=== PATIENT | female | born 1960 | race Caucasian/White ===

== ENCOUNTER → 2019-11-30 08:49 | Outpatient (BNVA) | payer MEDICARE, MEDICAID, SELFPAY | PROVIDERS: Family Provider Nurse Practitioner Family; Visit Provider Social Worker | DX: F33.2 Major depressive disorder, recurrent severe without psychotic features (principal); F41.1 Generalized anxiety disorder; F43.12 Post-traumatic stress disorder, chronic | CPT/HCPCS: 90834 ==

== ENCOUNTER → 2019-12-16 08:19 | Outpatient (BNVA) | payer MEDICARE, MEDICAID, SELFPAY | PROVIDERS: Family Provider Nurse Practitioner Family; Visit Provider Social Worker | DX: F33.2 Major depressive disorder, recurrent severe without psychotic features (principal); F41.1 Generalized anxiety disorder; F43.12 Post-traumatic stress disorder, chronic | CPT/HCPCS: 90834 ==

== ENCOUNTER → 2020-01-20 08:03 | Outpatient (BNVA) | payer MEDICARE, MEDICAID, SELFPAY | PROVIDERS: Family Provider Nurse Practitioner Family; Visit Provider Social Worker | DX: F33.3 Major depressive disorder, recurrent, severe with psychotic symptoms (principal); F41.1 Generalized anxiety disorder; F43.12 Post-traumatic stress disorder, chronic | CPT/HCPCS: 90832 ==

== ENCOUNTER 2020-09-05 09:47 | Outpatient (CLI) | payer MEDICARE, MEDICAID, SELFPAY ==
--- NOTE | 2020-09-05 09:54 | MM_ITS ---
WS: [id number] BILATERAL DIGITAL SCREENING MAMMOGRAM WITH CAD CLINICAL INFORMATION: SCREENING HISTORY: Screening mammogram. No current complaints. COMPARISON: TECHNIQUE: Bilateral CC and MLO views. FINDINGS: Fatty-replaced breasts bilaterally. 8 mm nodular density upper outer right breast best seen on the ML O view may represent an intramammary lymph node but is new from previous. RECOMMEND FURTHER EVALUATION WITH RIGHT BREAST SPOT COMPRESSION VIEWS AND ULTRASOUND. Left breast is unchanged and unremarkable. \IMPRESSION: MM/[place] [id number] BI-RADS: 0-Incomplete: Need additional imaging evaluation FOLLOW UP: Need Additional Imaging
== END 2020-09-05 09:48 | disposition home or self-care (01) ==
LOC: RADSHAW 09:51
PROVIDERS: Family Provider Nurse Practitioner Family; PCP Nurse Practitioner Family; Visit Provider Nurse Practitioner Family
DX: Z12.31 Encounter for screening mammogram for malignant neoplasm of breast (principal)
CPT/HCPCS: 77067

== ENCOUNTER → 2020-09-06 14:39 | Outpatient (BNVA) | payer MEDICARE, MEDICAID, SELFPAY | PROVIDERS: Family Provider Nurse Practitioner Family; PCP Nurse Practitioner Family; Visit Provider Internal Medicine | DX: Z79.01 Long term (current) use of anticoagulants (principal); Z95.2 Presence of prosthetic heart valve | CPT/HCPCS: 85610 ==

== ENCOUNTER 2020-09-18 09:29 | Outpatient (CLI) | payer MEDICARE, MEDICAID, SELFPAY ==
--- NOTE | 2020-09-18 09:34 | US_ITS ---
WS: [id number] RIGHT DIGITAL MAMMOGRAPHY WITH CAD CLINICAL INFORMATION: ABNORMALITY OF RT BREAST ON SCREENING MAMMOGRAM COMPARISON: September 05, 2020 TECHNIQUE: 5 views of the right breast were obtained. FINDINGS: Scattered fibroglandular densities of the right breast. Stable 8 mm nodular density upper outer right breast. Ultrasound is pending. ULTRASOUND BREAST RIGHT TECHNIQUE: Ultrasound right breast focused area of concern. CLINICAL INFORMATION: ABNORMALITY OF RT BREAST ON SCREENING MAMMOGRAM COMPARISON: None. FINDINGS: Ultrasound right breast 10:00 position. There is a shallow hypoechoic well-circumscribed solid nodule measuring 7.0 x 5.0 x 6.5 mm. This is indeterminate and could be further evaluated ultrasound guided biopsy. US/US breast RT complete [id number] IMPRESSION: BI-RADS: 4-Suspicious Finding-Biopsy Should Be Considered FOLLOW UP: US Guided Biopsy Recommended
== END 2020-09-18 09:30 | disposition home or self-care (01) ==
LOC: RADSHAW 09:31
PROVIDERS: PCP Nurse Practitioner Family; Visit Provider Nurse Practitioner Family
DX: R92.8 Other abnormal and inconclusive findings on diagnostic imaging of breast (principal); N63.11 Unspecified lump in the right breast, upper outer quadrant
CPT/HCPCS: 76641; 77065

== ENCOUNTER 2020-10-30 12:00 | Outpatient (CLI) | payer MEDICARE, MEDICAID, SELFPAY ==
--- NOTE | 2020-10-30 12:09 | US_ITS ---
WS: [id number] ULTRASOUND BREAST RIGHT TECHNIQUE: Ultrasound right breast focused area of concern. CLINICAL INFORMATION: BREAST NODULE RIGHT COMPARISON: September 18, 2020 FINDINGS: Ultrasound right breast 9:00 position 7 cm from the nipple. Previously described superficial lesion a t the 9:00 position is no longer visualized today. Biopsy was not performed. Recommend 6 month follow -up ultrasound. US/US breast RT limited* [id number] IMPRESSION: Previously described lesion in the 9:00 position is no longer visualized today and may have resolved. Recommend 6 month follow-up right breast ultrasound.
== END 2020-10-30 12:01 | disposition home or self-care (01) ==
LOC: RAD 12:05
PROVIDERS: PCP Nurse Practitioner Family; Visit Provider Nurse Practitioner Family
DX: N63.15 Unspecified lump in the right breast, overlapping quadrants (principal)
CPT/HCPCS: 19083; 76642

== ENCOUNTER 2020-11-27 06:00 | Outpatient (RCR) | payer MEDICARE, MEDICAID, SELFPAY | END 2020-12-15 23:59 | disposition home or self-care (01) | LOC: MPT 06:00 | PROVIDERS: PCP Nurse Practitioner Family; Referring Provider Nurse Practitioner Family; Visit Provider Nurse Practitioner Family | DX: M51.36 Other intervertebral disc degeneration, lumbar region (principal); M54.31 Sciatica, right side; M54.32 Sciatica, left side | CPT/HCPCS: 97110; 97140; 97162; G0283 ==

== ENCOUNTER 2020-12-16 06:00 | Outpatient (RCR) | payer MEDICARE, MEDICAID, SELFPAY | END 2021-01-15 23:59 | disposition home or self-care (01) | LOC: MPT 06:00 | PROVIDERS: PCP Nurse Practitioner Family; Referring Provider Nurse Practitioner Family; Visit Provider Nurse Practitioner Family | DX: M51.36 Other intervertebral disc degeneration, lumbar region (principal); M54.31 Sciatica, right side; M54.32 Sciatica, left side | CPT/HCPCS: 97110; 97140; G0283 ==

== ENCOUNTER → 2021-02-21 09:53 | Outpatient (BNVA) | payer MEDICARE, MEDICAID, SELFPAY | PROVIDERS: PCP Nurse Practitioner Family; Visit Provider Registered Nurse | DX: Z79.899 Other long term (current) drug therapy (principal); I10 Essential (primary) hypertension; E78.5 Hyperlipidemia, unspecified; Z79.01 Long term (current) use of anticoagulants | CPT/HCPCS: 36415; 80061; 83036 ==

== ENCOUNTER → 2021-09-05 09:04 | Outpatient (BNVA) | payer MEDICARE, MEDICAID, SELFPAY | PROVIDERS: PCP Nurse Practitioner Family; Visit Provider Social Worker Clinical | DX: F33.3 Major depressive disorder, recurrent, severe with psychotic symptoms (principal); F43.10 Post-traumatic stress disorder, unspecified; F41.1 Generalized anxiety disorder | CPT/HCPCS: 90832 ==

== ENCOUNTER → 2021-09-12 17:15 | Outpatient (BNVA) | payer MEDICARE, MEDICAID, SELFPAY | PROVIDERS: PCP Nurse Practitioner Family; Visit Provider Internal Medicine | DX: Z95.2 Presence of prosthetic heart valve (principal) | CPT/HCPCS: 85610 ==

== ENCOUNTER → 2021-10-17 10:32 | Outpatient (BNVA) | payer MEDICARE, MEDICAID, SELFPAY | PROVIDERS: PCP Nurse Practitioner Family; Visit Provider Internal Medicine | DX: Z79.01 Long term (current) use of anticoagulants (principal) ==

== ENCOUNTER → 2021-10-26 08:47 | Outpatient (BNVA) | payer MEDICARE, MEDICAID, SELFPAY | PROVIDERS: PCP Nurse Practitioner Family; Visit Provider Internal Medicine | DX: Z79.01 Long term (current) use of anticoagulants (principal) ==

== ENCOUNTER → 2021-11-09 08:13 | Outpatient (BNVA) | payer MEDICARE, MEDICAID, SELFPAY | PROVIDERS: PCP Nurse Practitioner Family; Visit Provider Internal Medicine | DX: Z79.01 Long term (current) use of anticoagulants (principal) ==

== ENCOUNTER → 2021-11-13 08:50 | Outpatient (BNVA) | payer MEDICARE, MEDICAID, SELFPAY | PROVIDERS: PCP Nurse Practitioner Family; Visit Provider Internal Medicine | DX: I34.8 Other nonrheumatic mitral valve disorders (principal); Z79.01 Long term (current) use of anticoagulants ==

== ENCOUNTER → 2021-11-23 08:27 | Outpatient (BNVA) | payer MEDICARE, MEDICAID, SELFPAY | PROVIDERS: PCP Nurse Practitioner Family; Visit Provider Internal Medicine | DX: Z79.01 Long term (current) use of anticoagulants (principal) ==

== ENCOUNTER → 2021-11-30 10:44 | Outpatient (BNVA) | payer MEDICARE, MEDICAID, SELFPAY | PROVIDERS: PCP Nurse Practitioner Family; Visit Provider Internal Medicine | DX: Z79.01 Long term (current) use of anticoagulants (principal) ==

== ENCOUNTER → 2021-12-03 16:02 | Outpatient (BNVA) | payer MEDICARE, MEDICAID, SELFPAY | PROVIDERS: PCP Nurse Practitioner Family; Visit Provider Internal Medicine | DX: Z79.01 Long term (current) use of anticoagulants (principal) ==

== ENCOUNTER → 2021-12-05 13:08 | Outpatient (BNVA) | payer MEDICARE, MEDICAID, SELFPAY | PROVIDERS: PCP Nurse Practitioner Family; Visit Provider Internal Medicine | DX: Z79.01 Long term (current) use of anticoagulants (principal) ==

== ENCOUNTER → 2021-12-11 12:32 | Outpatient (BNVA) | payer MEDICARE, MEDICAID, SELFPAY | PROVIDERS: PCP Nurse Practitioner Family; Visit Provider Internal Medicine | DX: Z79.01 Long term (current) use of anticoagulants (principal) ==

== ENCOUNTER → 2021-12-19 10:06 | Outpatient (BNVA) | payer MEDICARE, MEDICAID, SELFPAY | PROVIDERS: PCP Nurse Practitioner Family; Visit Provider Internal Medicine | DX: Z79.01 Long term (current) use of anticoagulants (principal) ==

== ENCOUNTER → 2021-12-28 12:55 | Outpatient (BNVA) | payer MEDICARE, MEDICAID, SELFPAY | PROVIDERS: PCP Nurse Practitioner Family; Visit Provider Internal Medicine | DX: Z79.01 Long term (current) use of anticoagulants (principal) ==

== ENCOUNTER → 2022-01-01 12:45 | Outpatient (BNVA) | payer MEDICARE, MEDICAID, SELFPAY | PROVIDERS: PCP Nurse Practitioner Family; Visit Provider Internal Medicine | DX: Z79.01 Long term (current) use of anticoagulants (principal) ==

== ENCOUNTER 2022-01-09 20:00 | Outpatient (CLI) | payer MEDICARE, MEDICAID, SELFPAY | END 2022-01-09 20:01 | disposition home or self-care (01) | LOC: SLEEP 01-10 05:30 | PROVIDERS: PCP Nurse Practitioner Family; Visit Provider Registered Nurse | DX: G47.33 Obstructive sleep apnea (adult) (pediatric) (principal) | CPT/HCPCS: 95810 ==

== ENCOUNTER → 2022-01-10 09:44 | Outpatient (BNVA) | payer MEDICARE, MEDICAID, SELFPAY | PROVIDERS: PCP Nurse Practitioner Family; Visit Provider Internal Medicine | DX: Z79.01 Long term (current) use of anticoagulants (principal) ==

== ENCOUNTER → 2022-01-18 10:17 | Outpatient (BNVA) | payer MEDICARE, MEDICAID, SELFPAY | PROVIDERS: PCP Nurse Practitioner Family; Visit Provider Internal Medicine | DX: Z79.01 Long term (current) use of anticoagulants (principal) ==

== ENCOUNTER → 2022-01-23 08:01 | Outpatient (BNVA) | payer MEDICARE, MEDICAID, SELFPAY | PROVIDERS: PCP Nurse Practitioner Family; Visit Provider Internal Medicine | DX: Z79.01 Long term (current) use of anticoagulants (principal) ==

== ENCOUNTER → 2022-01-30 09:39 | Outpatient (BNVA) | payer MEDICARE, MEDICAID, SELFPAY | PROVIDERS: PCP Nurse Practitioner Family; Visit Provider Internal Medicine | DX: Z79.01 Long term (current) use of anticoagulants (principal) ==

== ENCOUNTER → 2022-02-04 11:19 | Outpatient (BNVA) | payer MEDICARE, MEDICAID, SELFPAY | PROVIDERS: PCP Nurse Practitioner Family; Visit Provider Nurse Practitioner Family | DX: Z53.9 Procedure and treatment not carried out, unspecified reason (principal) | CPT/HCPCS: 99999 ==

== ENCOUNTER → 2022-02-06 11:11 | Outpatient (BNVA) | payer MEDICARE, MEDICAID, SELFPAY | PROVIDERS: PCP Nurse Practitioner Family; Visit Provider Internal Medicine | DX: Z79.01 Long term (current) use of anticoagulants (principal) ==

== ENCOUNTER → 2022-02-14 09:35 | Outpatient (BNVA) | payer MEDICARE, MEDICAID, SELFPAY | PROVIDERS: PCP Nurse Practitioner Family; Visit Provider Internal Medicine | DX: Z79.01 Long term (current) use of anticoagulants (principal) ==

== ENCOUNTER → 2022-02-22 10:37 | Outpatient (BNVA) | payer MEDICARE, MEDICAID, SELFPAY | PROVIDERS: PCP Nurse Practitioner Family; Visit Provider Internal Medicine | DX: Z79.01 Long term (current) use of anticoagulants (principal) ==

== ENCOUNTER → 2022-03-01 09:17 | Outpatient (BNVA) | payer MEDICARE, MEDICAID, OTHER, SELFPAY | PROVIDERS: PCP Nurse Practitioner Family; Visit Provider Internal Medicine | DX: Z79.01 Long term (current) use of anticoagulants (principal) ==

== ENCOUNTER → 2022-03-06 09:49 | Outpatient (BNVA) | payer MEDICARE, MEDICAID, OTHER, SELFPAY | PROVIDERS: PCP Nurse Practitioner Family; Visit Provider Internal Medicine | DX: Z79.01 Long term (current) use of anticoagulants (principal) ==

== ENCOUNTER → 2022-03-11 09:48 | Outpatient (BNVA) | payer MEDICARE, MEDICAID, SELFPAY | PROVIDERS: PCP Nurse Practitioner Family; Visit Provider Internal Medicine | DX: Z79.01 Long term (current) use of anticoagulants (principal) ==

== ENCOUNTER → 2022-03-22 10:56 | Outpatient (BNVA) | payer MEDICARE, MEDICAID, SELFPAY | PROVIDERS: PCP Nurse Practitioner Family; Visit Provider Internal Medicine | DX: I10 Essential (primary) hypertension (principal); Z95.2 Presence of prosthetic heart valve; E78.5 Hyperlipidemia, unspecified; Z87.891 Personal history of nicotine dependence; J44.9 Chronic obstructive pulmonary disease, unspecified; E66.01 Morbid (severe) obesity due to excess calories; Z68.42 Body mass index [BMI] 45.0-49.9, adult; Z79.01 Long term (current) use of anticoagulants | CPT/HCPCS: 99213; 99214 ==

== ENCOUNTER 2022-04-23 07:57 | Outpatient (CLI) | payer MEDICARE, MEDICAID, SELFPAY ==
--- NOTE | 2022-04-23 08:30 | USCV_ITS ---
Daisy Corey Age: 61 Gender: F : 1960 Exam Date: 04/23/2022 08:27 Ordering Phys: Jhonatan Cabral M.D ([email or web address]) Technologist: Exam Location: [facility] [place]: chest pain BP: 135 / 82 HR: 83 Rhythm: Sinus Technical Quality: Adequate MEASUREMENTS (Male / Female) Normal Values 2D ECHO LV Diastolic Diameter PLAX 4.5 cm 4.2 - 5.9 / 3.9 - 5.3 cm LV Systolic Diameter PLAX 3.3 cm IVS Diastolic Thickness 1.2 cm 0.6 - 1.0 / 0.6 - 0.9 cm IVS Systolic Thickness 1.6 cm LVPW Diastolic Thickness 1.4 cm 0.6 - 1.0 / 0.6 - 0.9 cm LVPW Systolic Thickness 1.8 cm LVOT Diameter 2.0 cm LV Ejection Fraction 2D Teich 51.5 % LA Diameter 4.7 cm IVC Diameter 2.3 cm M-MODE Aortic Annulus Diameter 3.0 cm LA Ao Ratio MM 1.8 MV E Point Septal Separation 1.4 cm DOPPLER AV Peak Velocity 277.3 cm/s LVOT Peak Velocity 86.0 cm/s AV Area Cont Eq vti 1.2 cm squared AV Area Cont Eq pk 1.0 cm squared MV Area PHT 5.1 cm squared Mitral E to A Ratio 1.4 MV E' Velocity 80.0 cm/s Mitral E to MV E' Ratio 18.0 Mitral E to LV E' Lateral Ratio 16.8 Mitral E to LV E' Septal Ratio 19.4 TR Peak Velocity 209.7 cm/s TR Peak Gradient 17.6 mmHg TV Peak E Velocity 82.0 cm/s Right Atrial Pressure 3.0 mmHg Pulmonary Artery Systolic Pressu 20.6 mmHg PV Peak Velocity 129.0 cm/s RV Acceleration Time 0.2 s FINDINGS Left Ventricle Technically limited quality echocardiogram because of poor ultrasonic windows. Grossly LV systolic function is normal. Regional wall motion abnormalities cannot be assessed because of poor ultrasonic windows. Right Ventricle The right ventricle is normal in size and function. Right Atrium Not well-visualized Left Atrium The left atrium is normal in size. Mitral Valve Moderate mitral annular calcification is seen. No significant stenosis or regurgitation. Aortic Valve Not well-visualized. Mild aortic stenosis with aortic valve area of 1.2 cm2. Mean gradient across aortic valve of 13.6 mmHg. No significant regurgitation seen. Tricuspid Valve Trace tricuspid regurgitation. Insufficient TR jet to calculate RVSP. Pulmonic Valve Not well-visualized Pericardium Normal pericardium without effusion. Aorta Normal ascending aorta dimension. IVC CONCLUSIONS Technically very limited quality echocardiogram because of poor ultrasonic windows. Grossly LV systolic function is normal. Regional wall motion abnormalities cannot be assessed because of poor ultrasonic windows. Moderate mitral annular calcification seen. Aortic valve is not well visualized. Mild aortic stenosis with aortic valve area of 1.2 cm squared and mean gradient across aortic valve of 13.6 mmHg. Trace tricuspid regurgitation. Echogenic assessment with prior echocardiogram from 2012 not possible because of poor ultrasonic windows. Jhonatan Cabral MD (Electronically Signed) Final Date: 27 April 2022 15:43 S
== END 2022-04-23 07:58 | disposition home or self-care (01) ==
PROVIDERS: PCP Nurse Practitioner Family; Visit Provider Internal Medicine
DX: R07.9 Chest pain, unspecified (principal); I08.3 Combined rheumatic disorders of mitral, aortic and tricuspid valves
CPT/HCPCS: 93306

== ENCOUNTER 2022-08-23 20:11 | Emergency (ER) | payer MEDICARE, MEDICAID, SELFPAY ==
[2022-08-23 20:38] VITALS: BP 132/52; PULSE 89; RESP 20; TEMP 36.6; O2SAT 90; BMI 49.6
--- NOTE | 2022-08-23 20:46 | ECG_ITS ---
[facility] Test Date: 2022-08-23 Pat Name: Daisy Corey Department: Room: Gender: Female [employer]: : 1960 Requested By: Lio Calhoun Order Number: [id number] Stephen MD: Amina Santana M.D. Measurements Intervals [place] Rate: 89 P: 150 AL: 146 QRS: -22 QRSD: 122 T: 151 QT: 351 QTc: 428 Interpretive Statements SINUS RHYTHM POSSIBLE LEFT ATRIAL ENLARGEMENT [-0.1mV P-WAVE IN V1/V2] POSSIBLE RIGHT VENTRICULAR CONDUCTION DELAY [RSR (QR) IN V1/V2] LATERAL MYOCARDIAL INFARCTION , OF INDETERMINATE AGE [40+ ms Q WAVE AND/OR ST/T ABNORMALITY IN I/aVL/V5/V6] No previous ECG available for comparison Electronically Signed On 08-24-2022 7:09:34 CE[employer]OWER [employer]IM[employer] by Amina Santana M.D. [email or web address]
--- NOTE | 2022-08-23 21:12 | W.ED.CHESTPA ---
Documented by User: Lio Banuelos MD 08/23/22 23:13 HPI - Chest Pain General: Chief Complaint: Chest Pain Stated Complaint: CHEST PAIN Time Seen by Provider: 08/23/22 20:45 Source: patient Mode of arrival: EMS History of Present Illness: This 62-year-old female with a history of hypertension, dyslipidemia, morbid obesity and obstructive sleep apnea, presents to the ER with chest pain that started somewhere around 10 AM this morning. She describes the chest pain as aching in nature, constant with periods of acute exacerbation. She has a past history of valve replacement over 10 years ago and has not had a stress test or cardiac catheterization in a while. She did 1 dose of nitroglycerin prior to arrival. Currently, chest pain has eased up but has not completely resolved. Review of Systems Const: Denies: chills, body aches or change in appetite Eyes: Denies: change in vision or eye discharge ENMT: Denies: throat pain, dental pain or nasal discharge Card: Reports: chest pain; Denies: lightheadedness : Denies: dysuria Musc: Denies: neck pain or back pain Neuro: Denies: headache(s) or weakness in extremities Psych: Denies: depression Jorge/Lymph: Denies: easy bruising All/Imm: Denies: urticaria, tongue swelling or facial swelling PFSH ED PFSH: Medical History Anticoagulant long-term use COPD (chronic obstructive pulmonary disease) Dyslipidemia HTN (hypertension) Major depressive disorder, recurrent, severe with psychotic symptoms Morbid obesity GUS (obstructive sleep apnea) Oxygen dependent Psychiatric care Tobacco abuse, in remission Venous stasis Surgical History H/O mechanical aortic valve replacement Family History Other CAD (coronary artery disease) Dementia Diabetes Hypertension Social History Smoking and tobacco status: former smoker Second hand smoke exposure: No Alcohol intake: never Adopted: No Caregiver/support person: No Lives independently: Yes Household members: spouse Housing: House Marital status: Marital status details: for 36 years Number of children: 2 Number of grandchildren: 0 Highest education level completed: 10th Grade Current occupational status: disabled Pets and animals: Yes Pets & animals: dog(s) History of recent travel: No Leisure activites: reading and other Leisure activities details: alona Sexually active: Yes Current gender identity: Female Abbi/Holiness: Druze Special abbi needs: No Agree to transfusion: Yes Financial difficulty paying for basics: Not Very Hard Female Reproductive History: Para: 2 Physical Exam Narrative: EXAM NARRATIVE: Morbid obesity. Const: COMMON NORMALS: no acute distress, patient oriented x3, no limitations and alert HENMT: COMMON NORMALS: normocephalic HEAD & SCALP: normocephalic Eye: COMMON NORMALS: EOMs intact bilaterally Neck/C-Spine: COMMON NORMALS: full ROM and supple Chest: OTHER: Healed mid sternotomy scar from valve replacement over 10 years ago. Resp: COMMON NORMALS: normal respiratory effort, No retractions, No use of accessory muscles and clear to auscultation bilaterally AUSCULTATION: clear to auscultation bilaterally Cardio: COMMON NORMALS: regular rate, regular rhythm and No murmurs present (Cardio) RATE: regular rate RHYTHM: regular rhythm GI: COMMON NORMALS: Normal to inspection, nondistended, normoactive bowel sounds present and non-tender : COMMON NORMALS: Yes no CVA tenderness BLADDER/KIDNEY EXAM: Yes no CVA tenderness Back/Pelvis: COMMON NORMALS: no CVA tenderness and no thoracic nor lumbar tenderness Extremity: GENERAL: Yes normal exam except as noted (Hyperpigmentation of both lower extremities due to venous stasis.) Neuro: COMMON NORMALS: patient oriented x3 and no focal motor deficits SENSORIUM/ORIENTATION: Yes alert Psych: COMMON NORMALS: mental status grossly normal and cooperative Course Vital Signs: Vital signs: Vital Signs Temperature 98 F 08/23/22 20:38 Pulse Rate 86 08/24/22 01:59 Respiratory Rate 20 H 08/24/22 01:59 Blood Pressure 146/97 08/24/22 01:59 Pulse Oximetry 92 08/24/22 01:59 Oxygen Delivery Me thod 08/24/22 01:19 Oxygen Flow Rate 2 08/24/22 01:19 MDM - Chest Pain Lab Data 08/23/22 21:13 08/23/22 21:13 Radiology Impressions Chest X-Ray 08/23/22 21:37 IMPRESSION: No acute findings. Laboratory Results WBC 12.2 10^3/uL (4.0-10.0) H 08/23/22 21:13 RBC 4.75 10^6/uL (4.1-5.3) 08/23/22 21:13 Hgb 13.1 g/dL (11.5-15.3) 08/23/22 21:13 Hct 40.8 % (37.0-47.0) 08/23/22 21:13 MCV 85.9 fl (81-99) 08/23/22 21:13 MCH 27.6 pg (28.0-34.0) L 08/23/22 21:13 MCHC 32.1 g/dL (30.0-36.0) 08/23/22 21:13 RDW 15.4 % (12.1-15.1) H 08/23/22 21:13 Plt Count 305 10^3/cmm (130-400) 08/23/22 21:13 MPV 9.2 fL (7.4-10.4) 08/23/22 21:13 Neut % (Auto) 72.4 % 08/23/22 21:13 Lymph % (Auto) 18.2 % 08/23/22 21:13 [place] % (Auto) 6.0 % 08/23/22 21:13 Eos % (Auto) 2.5 % 08/23/22 21:13 Baso % (Auto) 0.4 % 08/23/22 21:13 Neut # (Auto) 8.86 10^3/uL (1.8-7.7) H 08/23/22 21:13 Lymph # (Auto) 2.2 10^3/uL (0.8-4.8) 08/23/22 21:13 [place] # (Auto) 0.7 10^3/uL (0.2-0.9) 08/23/22 21:13 Eos # (Auto) 0.3 10^3/uL (0.0-0.8) 08/23/22 21:13 Baso # (Auto) 0.1 10^3/uL (0.0-0.1) 08/23/22 21:13 Nucleated RBC % (auto) 0 % 08/23/22 21:13 Nucleated RBCs # 0.0 /100WBC 08/23/22 21:13 Sodium 138 mmol/L (136-145) 08/23/22 21:13 Potassium 3.9 mmol/L (3.5-5.1) 08/23/22 21:13 Chloride 96 mmol/L (98-107) L 08/23/22 21:13 Carbon Dioxide 34 mmol/L (22-29) H 08/23/22 21:13 Anion Gap 11.9 (5-19) 08/23/22 21:13 BUN 13 mg/dL (8-23) 08/23/22 21:13 Creatinine 0.5 mg/dL (0.5-0.9) 08/23/22 21:13 GFR Calculation 125.4 mL/min (90-130) 08/23/22 21:13 Glucose 124 mg/dL (65-115) H 08/23/22 21:13 Calculated Osmolality 288 mOsm/kg (285-295) 08/23/22 21:13 Calcium 9.7 mg/dL (8.5-10.5) 08/23/22 21:13 Total Bilirubin 0.3 mg/dL (0.15-1.2) 08/23/22 21:13 AST 19 U/L (0-32) 08/23/22 21:13 ALT 14 U/L (0-33) 08/23/22 21:13 Alkaline Phosphatase 132 U/L (35-105) H 08/23/22 21:13 Troponin T Baseline 7 ng/L (0-10) 08/23/22 21:13 Troponin T 120 Minute 7.11 ng/L (0-10) 08/23/22 23:07 Delta Troponin T 0.11 ABS# (0-10) 08/23/22 23:07 Total Protein 7.8 g/dL (6.6-8.7) 08/23/22 21:13 Albumin 3.9 g/dL (3.5-5.2) 08/23/22 21:13 Globulin 3.9 g/dL (1.3-4.6) 08/23/22 21:13 Discharge Plan Discharge Patient Disposition: Home Clinical Impression: Chest pain Condition: Stable Prescriptions: No Action atorvastatin 20 mg tablet 20 mg PO DAILY magnesium oxide 400 mg magnesium tablet 400 mg PO BID aspirin [Adult Low Dose Aspirin] 81 mg tablet,delayed release (DR/EC) 81 mg PO DAILY gabapentin 300 mg capsule 300 mg PO TID theophylline 200 mg tablet 400 mg PO DAILY furosemide 40 mg tablet 40 mg PO DAILY levothyroxine 75 mcg capsule 75 mcg PO DAILY albuterol sulfate [ProAir HFA] 90 mcg/actuation HFA aerosol inhaler 2 puff INHALATION Q6H PRN (Reason: shortness of breath ) amlodipine 5 mg tablet 5 mg PO DAILY Qty: 90 3RF Daliresp 250 mcg tablet 250 mcg PO DAILY cyclobenzaprine 10 mg tablet 10 mg PO BID Trelegy Ellipta 100-62.5-25 mcg blister with device 1 inh inhalation DAILY Breztri Aerosphere 160-9-4.8 mcg/actuation HFA aerosol inhaler 2 inh inhalation BID ferrous sulfate [Tommy-Time] 325 mg (65 mg iron) tablet 325 mg PO DAILY hydroxyzine pamoate 25 mg capsule See Rx Instructions .ROUTE .COMPLEX Qty: 90 0RF Dose Instruction: TAKE 1 CAPSULE BY MOUTH THREE TIMES DAILY NEEDED FOR ANXIETY Rx Instructions: TAKE 1 CAPSULE BY MOUTH THREE TIMES DAILY NEEDED FOR ANXIETY (DME) oxygen-air delivery systems Device See Rx Instructions .Route Rx Instructions: As directed Rexulti 4 mg tablet See Rx Instructions .ROUTE .COMPLEX Qty: 30 2RF Dose Instruction: TAKE 1 TABLET BY MOUTH DAILY Rx Instructions: TAKE 1 TABLET BY MOUTH DAILY duloxetine [Cymbalta] 60 mg capsule,delayed release(DR/EC) 60 mg PO BID Qty: 60 2RF warfarin 2.5 mg tablet 2.5 mg PO DAILY Qty: 30 3RF Protocol: Dose Management Condition: Friday Dose/Route: 4 mg Instruction: 1 x 4 mg tablet Condition: Friday Dose/Route: 5 mg Instruction: 1 x 5 mg tablet Condition: Friday Dose/Route: 4 mg Instruction: 1 x 4 mg tablet Condition: Friday Dose/Route: 4 mg Instruction: 1 x 4 mg tablet Condition: Dose/Route: 4 mg Instruction: 1 x 4 mg tablet Condition: Friday Dose/Route: 4 mg Instruction: 1 x 4 mg tablet Condition: Friday Dose/Route: 4 mg Instruction: 1 x 4 mg tablet Protocol Text: Adjustment Start Date: Friday08/23/22 INR Value: 2.7 INR Date: 08/19/22 Recheck Date: 08/30/22 Rx Instructions: Take as directed, based on INR results warfarin 1 mg tablet 1 mg PO DAILY Qty: 90 3RF Protocol: Dose Management Condition: Friday Dose/Route: 4 mg Instruction: 1 x 4 mg tablet Condition: Friday Dose/Route: 5 mg Instruction: 1 x 5 mg tablet Condition: Friday Dose/Route: 4 mg Instruction: 1 x 4 mg tablet Condition: Friday Dose/Route: 4 mg Instruction: 1 x 4 mg tablet Condition: Dose/Route: 4 mg Instruction: 1 x 4 mg tablet Condition: Friday Dose/Route: 4 mg Instruction: 1 x 4 mg tablet Condition: Friday Dose/Route: 4 mg Instruction: 1 x 4 mg tablet Protocol Text: Adjustment Start Date: Friday08/23/22 INR Value: 2.7 INR Date: 08/19/22 Recheck Date: 08/30/22 Rx Instructions: Take as directed, based on INR results warfarin 3 mg tablet See Rx Instructions .ROUTE .COMPLEX Qty: 90 3RF Protocol: Dose Management Condition: Friday Dose/Route: 4 mg Instruction: 1 x 4 mg tablet Condition: Friday Dose/Route: 5 mg Instruction: 1 x 5 mg tablet Condition: Friday Dose/Route: 4 mg Instruction: 1 x 4 mg tablet Condition: Friday Dose/Route: 4 mg Instruction: 1 x 4 mg tablet Condition: Dose/Route: 4 mg Instruction: 1 x 4 mg tablet Condition: Friday Dose/Route: 4 mg Instruction: 1 x 4 mg tablet Condition: Friday Dose/Route: 4 mg Instruction: 1 x 4 mg tablet Protocol Text: Adjustment Start Date: Friday08/23/22 INR Value: 2.7 INR Date: 08/19/22 Recheck Date: 08/30/22 Dose Instruction: TAKE 1 TABLET BY MOUTH EVERY DAY Rx Instructions: TAKE 1 TABLET BY MOUTH EVERY DAY warfarin 5 mg tablet 5 mg PO DAILY Qty: 30 5RF Protocol: Dose Management Condition: Friday Dose/Route: 4 mg Instruction: 1 x 4 mg tablet Condition: Friday Dose/Route: 5 mg Instruction: 1 x 5 mg tablet Condition: Friday Dose/Route: 4 mg Instruction: 1 x 4 mg tablet Condition: Friday Dose/Route: 4 mg Instruction: 1 x 4 mg tablet Condition: Dose/Route: 4 mg Instruction: 1 x 4 mg tablet Condition: Friday Dose/Route: 4 mg Instruction: 1 x 4 mg tablet Condition: Friday Dose/Route: 4 mg Instruction: 1 x 4 mg tablet Protocol Text: Adjustment Start Date: Friday08/23/22 INR Value: 2.7 INR Date: 08/19/22 Recheck Date: 08/30/22 warfarin 2 mg tablet 2 mg PO DAILY Qty: 90 3RF Protocol: Dose Management Condition: Friday Dose/Route: 4 mg Instruction: 1 x 4 mg tablet Condition: Friday Dose/Route: 5 mg Instruction: 1 x 5 mg tablet Condition: Friday Dose/Route: 4 mg Instruction: 1 x 4 mg tablet Condition: Friday Dose/Route: 4 mg Instruction: 1 x 4 mg tablet Condition: Dose/Route: 4 mg Instruction: 1 x 4 mg tablet Condition: Friday Dose/Route: 4 mg Instruction: 1 x 4 mg tablet Condition: Friday Dose/Route: 4 mg Instruction: 1 x 4 mg tablet Protocol Text: Adjustment Start Date: Friday08/23/22 INR Value: 2.7 INR Date: 08/19/22 Recheck Date: 08/30/22 warfarin 4 mg tablet 4 mg PO DAILY Qty: 90 3RF Protocol: Dose Management Condition: Friday Dose/Route: 4 mg Instruction: 1 x 4 mg tablet Condition: Friday Dose/Route: 5 mg Instruction: 1 x 5 mg tablet Condition: Friday Dose/Route: 4 mg Instruction: 1 x 4 mg tablet Condition: Friday Dose/Route: 4 mg Instruction: 1 x 4 mg tablet Condition: Dose/Route: 4 mg Instruction: 1 x 4 mg tablet Condition: Friday Dose/Route: 4 mg Instruction: 1 x 4 mg tablet Condition: Friday Dose/Route: 4 mg Instruction: 1 x 4 mg tablet Protocol Text: Adjustment Start Date: Friday08/23/22 INR Value: 2.7 INR Date: 08/19/22 Recheck Date: 08/30/22 prazosin 2 mg capsule 4 mg PO .at bedtime Qty: 60 2RF Discharge Orders: Discharge ED (Routine); Ordered 08/24/22 Ordered By: Stuart Cortes Referrals: Mita Carvajal FNP [Primary Care Provider] - 4-7 days Patient Instructions: Chest Pain (ED) Activity Restrictions/Additional Instructions: Return for worsening pain despite treatment, shortness of breath, fever, any other concerning symptoms. Coding Level of Care Code ED Tie Fastener for Chg Fwd Exam Comprehensive Documented by User: Stuart Cortes, 08/24/22 05:31 HPI - Chest Pain General: Chief Complaint: Chest Pain Stated Complaint: CHEST PAIN Time Seen by Provider: 08/23/22 20:45 PFSH ED PFSH: Medical History Anticoagulant long-term use COPD (chronic obstructive pulmonary disease) Dyslipidemia HTN (hypertension) Major depressive disorder, recurrent, severe with psychotic symptoms Morbid obesity GUS (obstructive sleep apnea) Oxygen dependent Psychiatric care Tobacco abuse, in remission Venous stasis Surgical History H/O mechanical aortic valve replacement Family History Other CAD (coronary artery disease) Dementia Diabetes Hypertension Social History Smoking and tobacco status: former smoker Second hand smoke exposure: No Alcohol intake: never Adopted: No Caregiver/support person: No Lives independently: Yes Household members: spouse Housing: House Marital status: Marital status details: for 36 years Number of children: 2 Number of grandchildren: 0 Highest education level completed: 10th Grade Current occupational status: disabled Pets and animals: Yes Pets & animals: dog(s) History of recent travel: No Leisure activites: reading and other Leisure activities details: alona Sexually active: Yes Current gender identity: Female Abbi/Holiness: Druze Special abbi needs: No Agree to transfusion: Yes Financial difficulty paying for basics: Not Very Hard Course Vital Signs: Vital signs: Vital Signs Temperature 98 F 08/23/22 20:38 Pulse Rate 86 08/24/22 01:59 Respiratory Rate 20 H 08/24/22 01:59 Blood Pressure 146/97 08/24/22 01:59 Pulse Oximetry 92 08/24/22 01:59 Oxygen Delivery Me thod 08/24/22 01:19 Oxygen Flow Rate 2 08/24/22 01:19 MDM - Chest Pain Medical Decision Making 62-year-old female checked out to me by the previous physician at shift change. This lady had been experiencing chest discomfort. Her white blood cell count is 12.2. CBC is otherwise not remarkable. BMP is not remarkable. Chest x-ray shows no acute findings. EKG showed no acute ST changes. Troponin shows a 120-minute delta of 0.1. With improvement in her chest pain, she will be allowed home Lab Data 08/23/22 21:13 08/23/22 21:13 Radiology Impressions Chest X-Ray 08/23/22 21:37 IMPRESSION: No acute findings. Laboratory Results WBC 12.2 10^3/uL (4.0-10.0) H 08/23/22 21:13 RBC 4.75 10^6/uL (4.1-5.3) 08/23/22 21:13 Hgb 13.1 g/dL (11.5-15.3) 08/23/22 21:13 Hct 40.8 % (37.0-47.0) 08/23/22 21:13 MCV 85.9 fl (81-99) 08/23/22 21:13 MCH 27.6 pg (28.0-34.0) L 08/23/22 21:13 MCHC 32.1 g/dL (30.0-36.0) 08/23/22 21:13 RDW 15.4 % (12.1-15.1) H 08/23/22 21:13 Plt Count 305 10^3/cmm (130-400) 08/23/22 21:13 MPV 9.2 fL (7.4-10.4) 08/23/22 21:13 Neut % (Auto) 72.4 % 08/23/22 21:13 Lymph % (Auto) 18.2 % 08/23/22 21:13 [place] % (Auto) 6.0 % 08/23/22 21:13 Eos % (Auto) 2.5 % 08/23/22 21:13 Baso % (Auto) 0.4 % 08/23/22 21:13 Neut # (Auto) 8.86 10^3/uL (1.8-7.7) H 08/23/22 21:13 Lymph # (Auto) 2.2 10^3/uL (0.8-4.8) 08/23/22 21:13 [place] # (Auto) 0.7 10^3/uL (0.2-0.9) 08/23/22 21:13 Eos # (Auto) 0.3 10^3/uL (0.0-0.8) 08/23/22 21:13 Baso # (Auto) 0.1 10^3/uL (0.0-0.1) 08/23/22 21:13 Nucleated RBC % (auto) 0 % 08/23/22 21:13 Nucleated RBCs # 0.0 /100WBC 08/23/22 21:13 Sodium 138 mmol/L (136-145) 08/23/22 21:13 Potassium 3.9 mmol/L (3.5-5.1) 08/23/22 21:13 Chloride 96 mmol/L (98-107) L 08/23/22 21:13 Carbon Dioxide 34 mmol/L (22-29) H 08/23/22 21:13 Anion Gap 11.9 (5-19) 08/23/22 21:13 BUN 13 mg/dL (8-23) 08/23/22 21:13 Creatinine 0.5 mg/dL (0.5-0.9) 08/23/22 21:13 GFR Calculation 125.4 mL/min (90-130) 08/23/22 21:13 Glucose 124 mg/dL (65-115) H 08/23/22 21:13 Calculated Osmolality 288 mOsm/kg (285-295) 08/23/22 21:13 Calcium 9.7 mg/dL (8.5-10.5) 08/23/22 21:13 Total Bilirubin 0.3 mg/dL (0.15-1.2) 08/23/22 21:13 AST 19 U/L (0-32) 08/23/22 21:13 ALT 14 U/L (0-33) 08/23/22 21:13 Alkaline Phosphatase 132 U/L (35-105) H 08/23/22 21:13 Troponin T Baseline 7 ng/L (0-10) 08/23/22 21:13 Troponin T 120 Minute 7.11 ng/L (0-10) 08/23/22 23:07 Delta Troponin T 0.11 ABS# (0-10) 08/23/22 23:07 Total Protein 7.8 g/dL (6.6-8.7) 08/23/22 21:13 Albumin 3.9 g/dL (3.5-5.2) 08/23/22 21:13 Globulin 3.9 g/dL (1.3-4.6) 08/23/22 21:13 Discharge Plan Discharge Patient Disposition: Home Clinical Impression: Chest pain Condition: Stable Prescriptions: No Action atorvastatin 20 mg tablet 20 mg PO DAILY magnesium oxide 400 mg magnesium tablet 400 mg PO BID aspirin [Adult Low Dose Aspirin] 81 mg tablet,delayed release (DR/EC) 81 mg PO DAILY gabapentin 300 mg capsule 300 mg PO TID theophylline 200 mg tablet 400 mg PO DAILY furosemide 40 mg tablet 40 mg PO DAILY levothyroxine 75 mcg capsule 75 mcg PO DAILY albuterol sulfate [ProAir HFA] 90 mcg/actuation HFA aerosol inhaler 2 puff INHALATION Q6H PRN (Reason: shortness of breath ) amlodipine 5 mg tablet 5 mg PO DAILY Qty: 90 3RF Daliresp 250 mcg tablet 250 mcg PO DAILY cyclobenzaprine 10 mg tablet 10 mg PO BID Trelegy Ellipta 100-62.5-25 mcg blister with device 1 inh inhalation DAILY Breztri Aerosphere 160-9-4.8 mcg/actuation HFA aerosol inhaler 2 inh inhalation BID ferrous sulfate [Tommy-Time] 325 mg (65 mg iron) tablet 325 mg PO DAILY hydroxyzine pamoate 25 mg capsule See Rx Instructions .ROUTE .COMPLEX Qty: 90 0RF Dose Instruction: TAKE 1 CAPSULE BY MOUTH THREE TIMES DAILY NEEDED FOR ANXIETY Rx Instructions: TAKE 1 CAPSULE BY MOUTH THREE TIMES DAILY NEEDED FOR ANXIETY (DME) oxygen-air delivery systems Device See Rx Instructions .Route Rx Instructions: As directed Rexulti 4 mg tablet See Rx Instructions .ROUTE .COMPLEX Qty: 30 2RF Dose Instruction: TAKE 1 TABLET BY MOUTH DAILY Rx Instructions: TAKE 1 TABLET BY MOUTH DAILY duloxetine [Cymbalta] 60 mg capsule,delayed release(DR/EC) 60 mg PO BID Qty: 60 2RF warfarin 2.5 mg tablet 2.5 mg PO DAILY Qty: 30 3RF Protocol: Dose Management Condition: Friday Dose/Route: 4 mg Instruction: 1 x 4 mg tablet Condition: Friday Dose/Route: 5 mg Instruction: 1 x 5 mg tablet Condition: Friday Dose/Route: 4 mg Instruction: 1 x 4 mg tablet Condition: Friday Dose/Route: 4 mg Instruction: 1 x 4 mg tablet Condition: Dose/Route: 4 mg Instruction: 1 x 4 mg tablet Condition: Friday Dose/Route: 4 mg Instruction: 1 x 4 mg tablet Condition: Friday Dose/Route: 4 mg Instruction: 1 x 4 mg tablet Protocol Text: Adjustment Start Date: Friday08/23/22 INR Value: 2.7 INR Date: 08/19/22 Recheck Date: 08/30/22 Rx Instructions: Take as directed, based on INR results warfarin 1 mg tablet 1 mg PO DAILY Qty: 90 3RF Protocol: Dose Management Condition: Friday Dose/Route: 4 mg Instruction: 1 x 4 mg tablet Condition: Friday Dose/Route: 5 mg Instruction: 1 x 5 mg tablet Condition: Friday Dose/Route: 4 mg Instruction: 1 x 4 mg tablet Condition: Friday Dose/Route: 4 mg Instruction: 1 x 4 mg tablet Condition: Dose/Route: 4 mg Instruction: 1 x 4 mg tablet Condition: Friday Dose/Route: 4 mg Instruction: 1 x 4 mg tablet Condition: Friday Dose/Route: 4 mg Instruction: 1 x 4 mg tablet Protocol Text: Adjustment Start Date: Friday08/23/22 INR Value: 2.7 INR Date: 08/19/22 Recheck Date: 08/30/22 Rx Instructions: Take as directed, based on INR results warfarin 3 mg tablet See Rx Instructions .ROUTE .COMPLEX Qty: 90 3RF Protocol: Dose Management Condition: Friday Dose/Route: 4 mg Instruction: 1 x 4 mg tablet Condition: Friday Dose/Route: 5 mg Instruction: 1 x 5 mg tablet Condition: Friday Dose/Route: 4 mg Instruction: 1 x 4 mg tablet Condition: Friday Dose/Route: 4 mg Instruction: 1 x 4 mg tablet Condition: Dose/Route: 4 mg Instruction: 1 x 4 mg tablet Condition: Friday Dose/Route: 4 mg Instruction: 1 x 4 mg tablet Condition: Friday Dose/Route: 4 mg Instruction: 1 x 4 mg tablet Protocol Text: Adjustment Start Date: Friday08/23/22 INR Value: 2.7 INR Date: 08/19/22 Recheck Date: 08/30/22 Dose Instruction: TAKE 1 TABLET BY MOUTH EVERY DAY Rx Instructions: TAKE 1 TABLET BY MOUTH EVERY DAY warfarin 5 mg tablet 5 mg PO DAILY Qty: 30 5RF Protocol: Dose Management Condition: Friday Dose/Route: 4 mg Instruction: 1 x 4 mg tablet Condition: Friday Dose/Route: 5 mg Instruction: 1 x 5 mg tablet Condition: Friday Dose/Route: 4 mg Instruction: 1 x 4 mg tablet Condition: Friday Dose/Route: 4 mg Instruction: 1 x 4 mg tablet Condition: Dose/Route: 4 mg Instruction: 1 x 4 mg tablet Condition: Friday Dose/Route: 4 mg Instruction: 1 x 4 mg tablet Condition: Friday Dose/Route: 4 mg Instruction: 1 x 4 mg tablet Protocol Text: Adjustment Start Date: Friday08/23/22 INR Value: 2.7 INR Date: 08/19/22 Recheck Date: 08/30/22 warfarin 2 mg tablet 2 mg PO DAILY Qty: 90 3RF Protocol: Dose Management Condition: Friday Dose/Route: 4 mg Instruction: 1 x 4 mg tablet Condition: Friday Dose/Route: 5 mg Instruction: 1 x 5 mg tablet Condition: Friday Dose/Route: 4 mg Instruction: 1 x 4 mg tablet Condition: Friday Dose/Route: 4 mg Instruction: 1 x 4 mg tablet Condition: Dose/Route: 4 mg Instruction: 1 x 4 mg tablet Condition: Friday Dose/Route: 4 mg Instruction: 1 x 4 mg tablet Condition: Friday Dose/Route: 4 mg Instruction: 1 x 4 mg tablet Protocol Text: Adjustment Start Date: Friday08/23/22 INR Value: 2.7 INR Date: 08/19/22 Recheck Date: 08/30/22 warfarin 4 mg tablet 4 mg PO DAILY Qty: 90 3RF Protocol: Dose Management Condition: Friday Dose/Route: 4 mg Instruction: 1 x 4 mg tablet Condition: Friday Dose/Route: 5 mg Instruction: 1 x 5 mg tablet Condition: Friday Dose/Route: 4 mg Instruction: 1 x 4 mg tablet Condition: Friday Dose/Route: 4 mg Instruction: 1 x 4 mg tablet Condition: Dose/Route: 4 mg Instruction: 1 x 4 mg tablet Condition: Friday Dose/Route: 4 mg Instruction: 1 x 4 mg tablet Condition: Friday Dose/Route: 4 mg Instruction: 1 x 4 mg tablet Protocol Text: Adjustment Start Date: Friday08/23/22 INR Value: 2.7 INR Date: 08/19/22 Recheck Date: 08/30/22 prazosin 2 mg capsule 4 mg PO .at bedtime Qty: 60 2RF Discharge Orders: Discharge ED (Routine); Ordered 08/24/22 Ordered By: Stuart Cortes Referrals: Mita Carvajal, RISK ASSESSMENT ANALYST [Primary Care Provider] - 4-7 days Patient Instructions: Chest Pain (ED) Activity Restrictions/Additional Instructions: Return for worsening pain despite treatment, shortness of breath, fever, any other concerning symptoms. Coding Level of Care Code ED Tie Fastener for Rhett Fwd Exam Comprehensive
[2022-08-23 21:18] VITALS: BP 102/46; PULSE 89; RESP 15; O2SAT 89
--- NOTE | 2022-08-23 21:37 | XRR_ITS ---
PROCEDURE INFORMATION: Exam: XR Chest Exam date and time: 08/23/2022 9:45 PM Age: 62 years old Clinical indication: Angina; Prior surgery; Surgery date: 6+ months; Additional info: Chest pain TECHNIQUE: Imaging protocol: Radiologic exam of the chest. Views: 1 view. COMPARISON: No relevant prior studies available. FINDINGS: Lungs: Unremarkable. No consolidation. Pleural spaces: Unremarkable. No pleural effusion. No pneumothorax. Heart/Mediastinum: Unremarkable. No cardiomegaly. Bones/joints: Previous sternotomy. Mild right acromioclavicular arthropathy. Soft tissues: Examination is limited secondary to body habitus. XR/XR chest 1V portable [id number] IMPRESSION: No acute findings.
[2022-08-23 21:45] LABS: Basophils # 0.1 10^3/uL (0.0-0.1); Basophils % 0.4 %; Eosinophils # 0.3 10^3/uL (0.0-0.8); Eosinophils % 2.5 %; Hematocrit 40.8 % (37.0-47.0); Hemoglobin 13.1 g/dL (11.5-15.3); Lymphocytes # 2.2 10^3/uL (0.8-4.8); Lymphocytes % 18.2 %; Mean Corpuscular HGB Conc 32.1 g/dL (30.0-36.0); Mean Corpuscular Hemoglobin 27.6 pg (28.0-34.0); Mean Corpuscular Volume 85.9 fl (81-99); Mean Platelet Volume 9.2 fL (7.4-10.4); Monocytes # 0.7 10^3/uL (0.2-0.9); Neutrophils # 8.86 10^3/uL (1.8-7.7); Neutrophils % 72.4 %; Nucleated Red Blood Cells % 0 %; Platelet Count 305 10^3/cmm (130-400); Red Blood Count 4.75 10^6/uL (4.1-5.3); Red Cell Distribution Width 15.4 % (12.1-15.1); White Blood Count 12.2 10^3/uL (4.0-10.0)
[2022-08-23] MEDS: nitroglycerin 0.4 mg sublingual Tablet SUBLINGUAL (21:55)
[2022-08-23 21:57] LABS: Troponin(5th) Baseline 7 ng/L (0-10)
[2022-08-23 21:58] LABS: Alanine Aminotransferase 14 U/L (0-33); Albumin Level 3.9 g/dL (3.5-5.2); Alkaline Phosphatase 132 U/L (35-105); Anion Gap 11.9 (5-19); Aspartate Amino Transferase 19 U/L (0-32); Blood Urea Nitrogen 13 mg/dL (8-23); Calcium 9.7 mg/dL (8.5-10.5); Carbon Dioxide 34 mmol/L (22-29); Chloride 96 mmol/L (98-107); Globulin 3.9 g/dL (1.3-4.6); Glomerular Filtration Rate 125.4 mL/min (90-130); Glucose 124 mg/dL (65-115); Osmolality Calculated 288 mOsm/kg (285-295); Potassium 3.9 mmol/L (3.5-5.1); Sodium 138 mmol/L (136-145); Total Bilirubin 0.3 mg/dL (0.15-1.2); Total Protein 7.8 g/dL (6.6-8.7)
[2022-08-23 22:00] VITALS: BP 86/57; PULSE 93; RESP 13; O2SAT 91
[2022-08-23 22:30] VITALS: BP 108/62; PULSE 89; RESP 18; O2SAT 91
[2022-08-23 23:00] VITALS: BP 119/61; PULSE 88; O2SAT 89
--- NOTE | 2022-08-23 23:11 | ECG_ITS ---
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 Measurements Intervals [place] Rate: 86 P: -12 [place]: 131 QRS: -26 QRSD: 116 T: 150 QT: 370 QTc: 443 Interpretive Statements SINUS RHYTHM POSSIBLE LEFT ATRIAL ENLARGEMENT [-0.1mV P-WAVE IN V1/V2] LATERAL MYOCARDIAL INFARCTION , OF INDETERMINATE AGE [40+ ms Q WAVE AND/OR ST/T ABNORMALITY IN I/aVL/V5/V6] Compared to ECG 08/23/2022 20:46:26 No significant changes Electronically Signed On 08-25-2022 20:09:22 SAMPLE BODY BUILDER by Swetha Benitez M.D. [id number]
[2022-08-23 23:30] VITALS: BP 130/92; PULSE 87; RESP 15; O2SAT 92
[2022-08-24 00:32] LABS: Troponin 5 2HR 7.11 ng/L (0-10)
[2022-08-24 00:33] LABS: Troponin 5 2HR Delta 0.11 ABS# (0-10)
[2022-08-24 01:19] VITALS: PULSE 87; RESP 20; O2SAT 91
[2022-08-24] MEDS: ipratropium-albuterol 3 mL Neb INHALATION (01:19)
[2022-08-24 01:59] VITALS: BP 146/97; PULSE 86; RESP 20; O2SAT 92
== END 2022-08-24 01:56 | disposition home or self-care (01) ==
PROVIDERS: Family Medicine; Emergency Provider Emergency Medicine; PCP Nurse Practitioner Family
DX: R07.9 Chest pain, unspecified (principal); Z79.82 Long term (current) use of aspirin; Z79.01 Long term (current) use of anticoagulants; J44.9 Chronic obstructive pulmonary disease, unspecified; E78.5 Hyperlipidemia, unspecified; I10 Essential (primary) hypertension; Z87.891 Personal history of nicotine dependence; Z99.81 Dependence on supplemental oxygen
CPT/HCPCS: 71045; 80053; 84484; 85025; 93005; 94640; 99285

== ENCOUNTER → 2022-09-10 12:11 | Outpatient (BNVA) | payer MEDICARE, MEDICAID, SELFPAY | PROVIDERS: PCP Nurse Practitioner Family; Visit Provider Registered Nurse | DX: E66.01 Morbid (severe) obesity due to excess calories (principal); Z79.899 Other long term (current) drug therapy; F33.2 Major depressive disorder, recurrent severe without psychotic features | CPT/HCPCS: 80061; 82306; 82607; 83036; 84443 ==

== ENCOUNTER → 2022-11-01 08:25 | Outpatient (BNVA) | payer MEDICARE, MEDICAID, SELFPAY ==
[2022-10-29 17:09] VITALS: BP 143/71; BMI 56.5
== END ==
PROVIDERS: PCP Nurse Practitioner Family; Visit Provider Nurse Practitioner Family
DX: I10 Essential (primary) hypertension (principal); Z95.2 Presence of prosthetic heart valve; Z87.891 Personal history of nicotine dependence; Z79.01 Long term (current) use of anticoagulants; Z79.82 Long term (current) use of aspirin
CPT/HCPCS: 99214

== ENCOUNTER → 2023-05-02 10:31 | Outpatient (BNVA) | payer MEDICARE, MEDICAID, SELFPAY ==
[2022-11-21 10:41] VITALS: BP 143/71; BMI 56.5
== END ==
PROVIDERS: PCP Nurse Practitioner Family; Visit Provider Internal Medicine
DX: Z95.2 Presence of prosthetic heart valve (principal); Z79.01 Long term (current) use of anticoagulants; Z79.82 Long term (current) use of aspirin; F17.201 Nicotine dependence, unspecified, in remission
CPT/HCPCS: 99214

== ENCOUNTER → 2023-10-31 09:55 | Outpatient (BNVA) | payer MEDICARE, MEDICAID, SELFPAY ==
[2022-11-21 10:41] VITALS: BP 143/71; BMI 56.5
== END ==
PROVIDERS: PCP Nurse Practitioner Family; Visit Provider Nurse Practitioner Family
DX: I10 Essential (primary) hypertension (principal); Z95.2 Presence of prosthetic heart valve; Z87.891 Personal history of nicotine dependence; Z79.01 Long term (current) use of anticoagulants
CPT/HCPCS: 99214

== ENCOUNTER 2023-12-16 19:21 | Emergency (ER) | payer MEDICARE, MEDICAID, SELFPAY ==
[2022-11-21 10:41] VITALS: BP 143/71; BMI 56.5
--- NOTE | 2023-12-16 19:23 | ED_ITS ---
HPI - SOB/Dyspnea 2 General: Chief Complaint: Shortness of Breath/Dyspnea Stated Complaint: COPD exacerbation Time Seen by Provider: 12/16/23 19:23 History of Present Illness: HPI Narrative: 63-year-old female presents to the emerg ency department via EMS personnel with complaints of shortness of breath worsening over the previous 3 days. She states she also has a wet productive cough and a intermittent fever of 101.3. EMS personnel state they did provide her 2 albuterol nebulized treatments she normally wears 3 L of nasal cannula supplemental oxygen at home and is currently not requiring any additional oxygen. She states she does have a history of COPD. Associated symptoms: Deny chest pain Review of Systems 2 General: Reports: 10 or more systems reviewed and unremarkable except in HPI and below Card: Reports: edema and swelling of feet/ankles; Denies: chest pain Resp: Reports: dyspnea, productive cough and wheezing PFSH ED 2 PFSH: Medical History Psychiatric care Dyslipidemia Morbid obesity Venous stasis Tobacco abuse, in remission HTN (hypertension) Anticoagulant long-term use GUS (obstructive sleep apnea) Oxygen dependent COPD (chronic obstructive pulmonary disease) Major depressive disorder, recurrent, severe with psychotic symptoms Surgical History H/O mechanical aortic valve replacement Family History Other CAD (coronary artery disease) Dementia Diabetes Hypertension Social History Smoking and tobacco/nicotine status: former use of tobacco/nicotine Second hand smoke exposure: No Alcohol intake: never Substance/Drug Use: never Adopted: No Caregiver/support person: No Lives independently: Yes Household members: spouse Housing: House Marital status: Marital status details: for 36 years Number of children: 2 Number of grandchildren: 0 Highest education level completed: 10th Grade Current occupational status: disabled Pets and animals: Yes Pets & animals: dog(s) Leisure activites: reading and other Leisure activities details: alona Sexually active: Yes Do you think of yourself as: Straight/Heterosexual Current gender identity: Female Abbi/Nondenominational: Taoism Special abbi needs: No Agree to transfusion: Yes Female Reproductive History: Para: 2 Physical Exam 2 Narrative: EXAM NARRATIVE: Constitutional: the patient appears well nourished and of normal development. Vital signs as documented. No acute distress at present. Alert and oriented-to person, place, time and situation. Head, eyes, ears, nose, mouth, throat: Normocephalic, atraumatic. Pupils-equal, round, reactive to light. No scleral icterus. Normal-appearing external ears. Normal appearing nasal turbinates, no drainage. No obvious oral lesions, posterior oropharynx without erythema or exudates. Neck: Supple, trachea is midline, no lymphadenopathy, no jugular venous distension, thyromegaly, or carotid bruits. Carotid upstrokes are brisk bilaterally. Lungs: Decreased bilaterally in the bases, expiratory wheezes noted. Mild increased work of breathing. Symmetrical rise and fall of chest, Cardiac: Regular rate and rhythm, positive S1, S2. No murmurs, rubs or gallops that I can appreciate Abdomen: Soft, non-tender to palpation, normal active bowel sounds to all quadrants. No palpable masses, no organomegaly and abdominal bruits. Extremities: 2+ pulses in the upper extremities that are equal bilaterally, 2+ pulses in the lower extremities that are equal bilaterally. Non-edematous. Moves all extremities well, sensation to all extremities are noted. Skin: Warm, dry, intact. Course 2 Vital Signs: Vital signs: Vital Signs Temperature 98.6 F 12/16/23 19:24 Pulse Rate 92 12/16/23 22:12 Respiratory Rate 18 12/16/23 21:03 Blood Pressure 130/76 12/16/23 22:12 Pulse Oximetry 94 12/16/23 22:12 Oxygen Delivery Me thod Nasal Cannula 12/16/23 21:03 Oxygen Flow Rate 3 12/16/23 21:03 MDM - SOB/Dyspnea Medical Decision Making Physical exam completed and documented I did obtain a CBC that demonstrated a elevated white blood cell count at 14.1. The remainder was essentially negative. CMP did have an elevated bicarb at 35 but the remainder was essentially negative. BNP was 142. The patient did receive Solu-Medrol here in the emergency department and I will discharge her home with guaifenesin, Tessalon Perles for her cough and antibiotics and recommend follow-up with her primary care provider. Medical Records I reviewed the patient's medical records. Lab Data I reviewed the patient's lab results. 12/16/23 19:37 12/16/23 19:37 Labs/Radiology: Radiology Impressions Chest X-Ray 12/16/23 19:24 IMPRESSION: No acute findings seen of the chest. Laboratory Results WBC 14.12 10^3/uL (3.29-11.43) H 12/16/23 19:37 RBC 4.50 10^6/uL (3.85-5.65) 12/16/23 19:37 Hgb 12.20 g/dL (11.27-16.99) 12/16/23 19:37 Hct 39.6 % (36-47) 12/16/23 19:37 MCV 88.0 fl (85-98) 12/16/23 19:37 MCH 27.1 pg (27-33) 12/16/23 19:37 MCHC 30.8 g/dL (30-55) 12/16/23 19:37 RDW 14.9 % (12.1-15.1) 12/16/23 19:37 Plt Count 285 10^3/cmm (157-399) 12/16/23 19:37 MPV 9.4 fL (7.4-10.4) 12/16/23 19:37 Neut % (Auto) 74.1 % 12/16/23 19:37 Lymph % (Auto) 17.9 % 12/16/23 19:37 [place] % (Auto) 5.3 % 12/16/23 19:37 Eos % (Auto) 1.9 % 12/16/23 19:37 Baso % (Auto) 0.5 % 12/16/23 19:37 Neut # (Auto) 10.46 10^3/uL (1.8-7.7) H 12/16/23 19:37 Lymph # (Auto) 2.5 10^3/uL (0.8-4.8) 12/16/23 19:37 [place] # (Auto) 0.8 10^3/uL (0.2-0.9) 12/16/23 19:37 Eos # (Auto) 0.3 10^3/uL (0.0-0.8) 12/16/23 19:37 Baso # (Auto) 0.1 10^3/uL (0.0-0.1) 12/16/23 19:37 Nucleated RBC % (auto) 0 % 12/16/23 19:37 Nucleated RBCs # 0.0 /100WBC 12/16/23 19:37 Sodium 139 mmol/L (136-145) 12/16/23 19:37 Potassium 4.0 mmol/L (3.5-5.1) 12/16/23 19:37 Chloride 94 mmol/L (98-107) L 12/16/23 19:37 Carbon Dioxide 35 mmol/L (22-29) H 12/16/23 19:37 Anion Gap 14.0 (5-19) 12/16/23 19:37 BUN 11 mg/dL (8-23) 12/16/23 19:37 Creatinine 0.6 mg/dL (0.5-0.9) 12/16/23 19:37 GFR Calculation 101.3 mL/min (90-130) 12/16/23 19:37 Glucose 112 mg/dL (65-115) 12/16/23 19:37 Calculated Osmolality 288 mOsm/kg (285-295) 12/16/23 19:37 Lactic Acid 1.3 mmol/L (0.5-2.2) 12/16/23 19:37 Calcium 9.3 mg/dL (8.5-10.5) 12/16/23 19:37 Total Bilirubin 0.4 mg/dL (0.15-1.2) 12/16/23 19:37 AST 17 U/L (0-32) 12/16/23 19:37 ALT 18 U/L (0-33) 12/16/23 19:37 Alkaline Phosphatase 119 U/L (35-105) H 12/16/23 19:37 Troponin T Baseline 9 ng/L (0-10) 12/16/23 19:37 Troponin T 120 Minute 11.15 ng/L (0-10) H 12/16/23 21:10 Delta Troponin T 2.15 ABS# (0-10) 12/16/23 21:10 NT-Pro-B Natriuret Pep 142 pg/mL (0-125) H 12/16/23 19:37 Total Protein 6.9 g/dL (6.6-8.7) 12/16/23 19:37 Albumin 4.0 g/dL (3.5-5.2) 12/16/23 19:37 Globulin 2.9 g/dL (1.3-4.6) 12/16/23 19:37 Procalcitonin 0.05 ng/mL (0-0.5) 12/16/23 19:37 All radiology interpretation(s) finalized by discharge EKG Data EKG 1: Interpretation: Twelve-lead EKG at 1928 and reviewed at 193 demonstrates sinus rhythm with a incomplete right bundle branch block, ventricular rate 96, NJ interval 150, QRS duration 110, QT 296 QTc [address] elevation or depression to demonstrate acute ischemia or infarction at present. EKG 2: Interpretation: Twelve-lead EKG obtained at 2101 and reviewed at 2104 demonstrates sinus rhythm with a right bundle branch block, NJ interval 153, QRS 115, ventricular rate 90 bpm, QT [address] elevation or depression at present. Discharge Plan Discharge Patient Disposition: Home Clinical Impression: Acute exacerbation of chronic obstructive pulmonary disease, Cough Pneumonia Qualifiers: Pneumonia type: due to unspecified organism Laterality: right Lung location: l ower lobe of lung Qualified Code(s): J18.9 - Pneumonia, unspecified organism Condition: Stable Prescriptions: New Zithromax Z-Mitesh 250 mg tablet See Rx Instructions .ROUTE .COMPLEX Qty: 6 0RF Rx Instructions: For 250 mg dose pack: take 500 mg today (day 1), then 250 mg for 4 days (days 2-5) benzonatate 200 mg capsule 200 mg PO TID Qty: 30 0RF prednisone 20 mg tablet 40 mg PO DAILY 5 Days Qty: 10 0RF guaifenesin 1,200 mg tablet extended release 12hr 1,200 mg PO BID 7 Days Qty: 14 0RF No Action atorvastatin 20 mg tablet 20 mg PO DAILY magnesium oxide 400 mg magnesium tablet 400 mg PO BID aspirin [Adult Low Dose Aspirin] 81 mg tablet,delayed release (DR/EC) 81 mg PO DAILY gabapentin 300 mg capsule 300 mg PO TID theophylline 200 mg tablet 400 mg PO DAILY furosemide 40 mg tablet 40 mg PO DAILY albuterol sulfate [ProAir HFA] 90 mcg/actuation HFA aerosol inhaler 2 puff INHALATION Q6H PRN (Reason: shortness of breath ) levothyroxine 75 mcg capsule 75 mcg PO DAILY amlodipine 5 mg tablet 5 mg PO DAILY Qty: 90 3RF Daliresp 250 mcg tablet 250 mcg PO DAILY cyclobenzaprine 10 mg tablet 10 mg PO BID Trelegy Ellipta 100-62.5-25 mcg blister with device 1 inh inhalation DAILY Breztri Aerosphere 160-9-4.8 mcg/actuation HFA aerosol inhaler 2 inh inhalation BID ferrous sulfate [Tommy-Time] 325 mg (65 mg iron) tablet 325 mg PO DAILY levothyroxine 125 mcg capsule 125 mcg PO DAILY levothyroxine 112 mcg capsule 112 mcg PO DAILY (DME) oxygen-air delivery systems Device See Rx Instructions .Route Rx Instructions: As directed potassium chloride [Klor-Con M20] 20 mEq tablet,ER particles/crystals 20 meq PO DAILY brexpiprazole 2 mg tablet See Rx Instructions .ROUTE .COMPLEX Qty: 30 5RF Dose Instruction: Take 1 tablet by mouth once daily Rx Instructions: Take 1 tablet by mouth once daily hydroxyzine pamoate 25 mg capsule See Rx Instructions .ROUTE .COMPLEX Qty: 90 2RF Dose Instruction: TAKE 1 CAPSULE BY MOUTH THREE TIMES DAILY NEEDED FOR ANXIETY Rx Instructions: TAKE 1 CAPSULE BY MOUTH THREE TIMES DAILY NEEDED FOR ANXIETY duloxetine 60 mg capsule,delayed release(DR/EC) See Rx Instructions .ROUTE .COMPLEX Qty: 60 5RF Dose Instruction: Take 1 capsule by mouth twice daily Rx Instructions: Take 1 capsule by mouth twice daily warfarin 2.5 mg tablet 2.5 mg PO DAILY Qty: 30 3RF Protocol: Dose Management Condition: Friday Dose/Route: 4 mg Instruction: 1 x 4 mg tablet Condition: Friday Dose/Route: 4 mg Instruction: 1 x 4 mg tablet Condition: Friday Dose/Route: 4 mg Instruction: 1 x 4 mg tablet Condition: Friday Dose/Route: 4 mg Instruction: 1 x 4 mg tablet Condition: Dose/Route: 4 mg Instruction: 1 x 4 mg tablet Condition: Friday Dose/Route: 4 mg Instruction: 1 x 4 mg tablet Condition: Friday Dose/Route: 4 mg Instruction: 1 x 4 mg tablet Protocol Text: Adjustment Start Date: Friday12/10/23 INR Value: 2.8 INR Date: 12/08/23 Recheck Date: 12/17/23 Rx Instructions: Take as directed, based on INR results warfarin 1 mg tablet 1 mg PO DAILY Qty: 90 3RF Protocol: Dose Management Condition: Friday Dose/Route: 4 mg Instruction: 1 x 4 mg tablet Condition: Friday Dose/Route: 4 mg Instruction: 1 x 4 mg tablet Condition: Friday Dose/Route: 4 mg Instruction: 1 x 4 mg tablet Condition: Friday Dose/Route: 4 mg Instruction: 1 x 4 mg tablet Condition: Dose/Route: 4 mg Instruction: 1 x 4 mg tablet Condition: Friday Dose/Route: 4 mg Instruction: 1 x 4 mg tablet Condition: Friday Dose/Route: 4 mg Instruction: 1 x 4 mg tablet Protocol Text: Adjustment Start Date: Friday12/10/23 INR Value: 2.8 INR Date: 12/08/23 Recheck Date: 12/17/23 Rx Instructions: Take as directed, based on INR results warfarin 2 mg tablet 2 mg PO DAILY Qty: 90 3RF Protocol: Dose Management Condition: Friday Dose/Route: 4 mg Instruction: 1 x 4 mg tablet Condition: Friday Dose/Route: 4 mg Instruction: 1 x 4 mg tablet Condition: Friday Dose/Route: 4 mg Instruction: 1 x 4 mg tablet Condition: Friday Dose/Route: 4 mg Instruction: 1 x 4 mg tablet Condition: Dose/Route: 4 mg Instruction: 1 x 4 mg tablet Condition: Friday Dose/Route: 4 mg Instruction: 1 x 4 mg tablet Condition: Friday Dose/Route: 4 mg Instruction: 1 x 4 mg tablet Protocol Text: Adjustment Start Date: Friday12/10/23 INR Value: 2.8 INR Date: 12/08/23 Recheck Date: 12/17/23 warfarin 5 mg tablet 5 mg PO DAILY Qty: 30 5RF Protocol: Dose Management Condition: Friday Dose/Route: 4 mg Instruction: 1 x 4 mg tablet Condition: Friday Dose/Route: 4 mg Instruction: 1 x 4 mg tablet Condition: Friday Dose/Route: 4 mg Instruction: 1 x 4 mg tablet Condition: Friday Dose/Route: 4 mg Instruction: 1 x 4 mg tablet Condition: Dose/Route: 4 mg Instruction: 1 x 4 mg tablet Condition: Friday Dose/Route: 4 mg Instruction: 1 x 4 mg tablet Condition: Friday Dose/Route: 4 mg Instruction: 1 x 4 mg tablet Protocol Text: Adjustment Start Date: Friday12/10/23 INR Value: 2.8 INR Date: 12/08/23 Recheck Date: 12/17/23 warfarin 3 mg tablet See Rx Instructions .ROUTE .COMPLEX Qty: 90 3RF Protocol: Dose Management Condition: Friday Dose/Route: 4 mg Instruction: 1 x 4 mg tablet Condition: Friday Dose/Route: 4 mg Instruction: 1 x 4 mg tablet Condition: Friday Dose/Route: 4 mg Instruction: 1 x 4 mg tablet Condition: Friday Dose/Route: 4 mg Instruction: 1 x 4 mg tablet Condition: Dose/Route: 4 mg Instruction: 1 x 4 mg tablet Condition: Friday Dose/Route: 4 mg Instruction: 1 x 4 mg tablet Condition: Friday Dose/Route: 4 mg Instruction: 1 x 4 mg tablet Protocol Text: Adjustment Start Date: Friday12/10/23 INR Value: 2.8 INR Date: 12/08/23 Recheck Date: 12/17/23 Dose Instruction: TAKE 1 TABLET BY MOUTH EVERY DAY Rx Instructions: TAKE 1 TABLET BY MOUTH EVERY DAY warfarin 4 mg tablet 4 mg PO DAILY Qty: 90 3RF Protocol: Dose Management Condition: Friday Dose/Route: 4 mg Instruction: 1 x 4 mg tablet Condition: Friday Dose/Route: 4 mg Instruction: 1 x 4 mg tablet Condition: Friday Dose/Route: 4 mg Instruction: 1 x 4 mg tablet Condition: Friday Dose/Route: 4 mg Instruction: 1 x 4 mg tablet Condition: Dose/Route: 4 mg Instruction: 1 x 4 mg tablet Condition: Friday Dose/Route: 4 mg Instruction: 1 x 4 mg tablet Condition: Friday Dose/Route: 4 mg Instruction: 1 x 4 mg tablet Protocol Text: Adjustment Start Date: Friday12/10/23 INR Value: 2.8 INR Date: 12/08/23 Recheck Date: 12/17/23 Discharge Orders: Discharge ED (Routine); Ordered 12/16/23 Ordered By: Brett Sanderson Referrals: Mita Carvajal FNP [Primary Care Provider] - Discharge Diet: Usual diet Discharge Activity: Resume usual activity Patient Instructions: Opioid Safety, Pain Management Activity Restrictions/Additional Instructions: Activity Restrictions/Additional Instructions: Thank you for choosing [facility] for your healthcare needs today. Please realize that you were seen in the Emergency Department and that we are providing you with an emergency medical screening exam and this may not be a complete and all inclusive of all the testing and or medical work-up that you may need to determine your ailment or severity of your illness. It is very important that you follow-up as instructed with your Primary care provider or Specialist for additional evaluation and to discuss your medical treatment plan. Coding Level of Care Code ED Electric Detector Operator for Rhett Coker
[2023-12-16 19:24] VITALS: BP 158/88; PULSE 100; RESP 15; TEMP 37; O2SAT 92
--- NOTE | 2023-12-16 19:24 | XRR_ITS ---
PROCEDURE INFORMATION: Exam: XR Chest Exam date and time: 12/16/2023 7:53 PM Age: 63 years old Clinical indication: Shortness of breath; Additional info: Dyspnea TECHNIQUE: Imaging protocol: Radiologic exam of the chest. Views: 1 view. COMPARISON: CR XR chest 1V portable [id number] 08/23/2022 9:45 PM FINDINGS: Tubes, catheters and devices: Prior sternal splitting procedure with evidence of heart valve prosthesis. Lungs: Mild bibasilar opacities similar to prior study, possibly chronic atelectasis and/or fibrosis. Pleural spaces: Mild fissural fluid and/or thickening horizontal/minor fissure similar to 08/23/2022. No large or obvious pneumothorax nor pleural effusion seen. Heart/Mediastinum: Stable heart size. Vasculature: Atherosclerotic disease aorta. Bones/joints: Degenerative changes spine. Other findings: Patient appears rotated slightly to the right. XR/XR chest 1V portable [id number] IMPRESSION: No acute findings seen of the chest.
[2023-12-16 19:27] VITALS: PULSE 98; O2SAT 93
--- NOTE | 2023-12-16 19:28 | ECG_ITS ---
[facility] Test Date: 2023-12-16 Pat Name: Daisy Corey Department: Room: Gender: Female Medical Records Assistant: : 1960 Requested By: Brett Sanderson Order Number: [id number] Stephen MD: Jhonatan Cabral M.D. Measurements Intervals [place] Rate: 96 P: 54 MS: 150 QRS: 41 QRSD: 110 T: 103 QT: 296 QTc: 374 Interpretive Statements SINUS RHYTHM INCOMPLETE RIGHT BUNDLE BRANCH BLOCK [90+ ms QRS DURATION, TERMINAL R IN V1/V2, 40+ ms S IN I/aVL/V4/V5/V6] NONSPECIFIC T-WAVE ABNORMALITY Compared to ECG 08/23/2022 23:11:48 Incomplete right bundle-branch block now present T-wave abnormality now present Myocardial infarct finding no longer present Electronically Signed On 12-17-2023 16:51:50 CDT by Jhonatan Cabral M.D. [id number] f
[2023-12-16 19:32] VITALS: PULSE 97; O2SAT 93
[2023-12-16 20:00] VITALS: PULSE 92; O2SAT 92
[2023-12-16 20:15] LABS: Basophils # 0.1 10^3/uL (0.0-0.1); Basophils % 0.5 %; Eosinophils # 0.3 10^3/uL (0.0-0.8); Eosinophils % 1.9 %; Hematocrit 39.6 % (36-47); Lymphocytes # 2.5 10^3/uL (0.8-4.8); Lymphocytes % 17.9 %; Mean Corpuscular HGB Conc 30.8 g/dL (30-55); Mean Corpuscular Hemoglobin 27.1 pg (27-33); Mean Platelet Volume 9.4 fL (7.4-10.4); Monocytes # 0.8 10^3/uL (0.2-0.9); Monocytes % 5.3 %; Neutrophils # 10.46 10^3/uL (1.8-7.7); Neutrophils % 74.1 %; Nucleated Red Blood Cells % 0 %; Platelet Count 285 10^3/cmm (157-399); Red Cell Distribution Width 14.9 % (12.1-15.1); White Blood Count 14.12 10^3/uL (3.29-11.43)
[2023-12-16 20:39] LABS: Lactic Sepsis W/Reflex 1.3 mmol/L (0.5-2.2)
[2023-12-16 20:41] LABS: Troponin(5th) Baseline 9 ng/L (0-10)
[2023-12-16 20:57] LABS: NT Pro B Type Natriuretic Pept 142 pg/mL (0-125); Procalcitonin 0.05 ng/mL (0-0.5)
--- NOTE | 2023-12-16 21:02 | ECG_ITS ---
[facility] Test Date: 2023-12-16 Pat Name: Daisy Corey Department: Room: Gender: Female Automatic Thread Winder: : 1960 Requested By: Brett Sanderson Order Number: [id number] Stephen MD: Jhonatan Cabral M.D. Measurements Intervals [place] Rate: 90 P: 60 HI: 153 QRS: 48 QRSD: 115 T: 102 QT: 373 QTc: 457 Interpretive Statements SINUS RHYTHM INCOMPLETE RIGHT BUNDLE BRANCH BLOCK [90+ ms QRS DURATION, TERMINAL R IN V1/V2, 40+ ms S IN I/aVL/V4/V5/V6] NONSPECIFIC ST & T-WAVE ABNORMALITY Compared to ECG 08/23/2022 23:11:48 Incomplete right bundle-branch block now present T-wave abnormality now present Myocardial infarct finding no longer present Electronically Signed On 12-17-2023 16:59:14 CDT by Jhonatan Cabral M.D. [id number]
[2023-12-16 21:03] VITALS: BP 114/61; PULSE 91; RESP 18; O2SAT 93
[2023-12-16 21:08] LABS: Alanine Aminotransferase 18 U/L (0-33); Alkaline Phosphatase 119 U/L (35-105); Aspartate Amino Transferase 17 U/L (0-32); Blood Urea Nitrogen 11 mg/dL (8-23); Calcium 9.3 mg/dL (8.5-10.5); Carbon Dioxide 35 mmol/L (22-29); Chloride 94 mmol/L (98-107); Creatinine Clr Calc Pharmacy 136.7413; Globulin 2.9 g/dL (1.3-4.6); Glomerular Filtration Rate 101.3 mL/min (90-130); Glucose 112 mg/dL (65-115); Osmolality Calculated 288 mOsm/kg (285-295); Sodium 139 mmol/L (136-145); Total Bilirubin 0.4 mg/dL (0.15-1.2); Total Protein 6.9 g/dL (6.6-8.7)
[2023-12-16 21:34] LABS: Troponin 5 2HR 11.15 ng/L (0-10); Troponin 5 2HR Delta 2.15 ABS# (0-10)
[2023-12-16] MEDS: methylPREDNISolone sod succ 125 mg/2 mL INJ 60 MG IVP (21:51)
[2023-12-16 22:12] VITALS: BP 130/76; PULSE 92; O2SAT 94
== END 2023-12-16 22:13 | disposition home or self-care (01) ==
PROVIDERS: Emergency Provider Internal Medicine; PCP Nurse Practitioner Family
DX: J44.0 Chronic obstructive pulmonary disease with (acute) lower respiratory infection (principal); J18.9 Pneumonia, unspecified organism; J44.1 Chronic obstructive pulmonary disease with (acute) exacerbation; Z79.82 Long term (current) use of aspirin; Z79.01 Long term (current) use of anticoagulants; Z87.891 Personal history of nicotine dependence; E78.5 Hyperlipidemia, unspecified; I10 Essential (primary) hypertension; Z99.81 Dependence on supplemental oxygen
CPT/HCPCS: 36415; 71045; 80053; 83605; 83880; 84145; 84484; 85025; 87040; 93005; 96374; 99285; J2919

== ENCOUNTER 2024-02-08 13:46 | Inpatient (IN) | payer MEDICARE, MEDICAID, SELFPAY ==
[2022-11-21 10:41] VITALS: BP 143/71; BMI 56.5
[2024-02-08] VITALS (57 sets, daily range): BP systolic 109–168; BP diastolic 60–86; PULSE 76–90; RESP 14–26; TEMP 36.3–37; O2SAT 85–98; BMI 48.4; BMI 53.4
--- NOTE | 2024-02-08 13:50 | ECG_ITS ---
[facility] Test Date: 2024-02-08 Pat Name: Daisy Corey Department: Room: Gender: Female Technical Proposal Writer: : 1960 Requested By: Usha Walter Order Number: [id number] Stephen MD: Jimenez Diaz M.D. Measurements Intervals [place] Rate: 87 P: 42 WV: 156 QRS: 12 QRSD: 118 T: 132 QT: 393 QTc: 475 Interpretive Statements SINUS RHYTHM MODERATE INTRAVENTRICULAR CONDUCTION DELAY [110+ ms QRS DURATION] ST DEVIATION AND MODERATE T-WAVE ABNORMALITY, CONSIDER LATERAL ISCHEMIA [-0.1+ mV T-WAVE IN I/aVL/V5/V6] Compared to ECG 12/16/2023 21:02:44 Intraventricular conduction delay now present Possible ischemia now present Incomplete right bundle-branch block no longer present T-wave abnormality still present Electronically Signed On 02-09-2024 14:45:24 CDT by Jimenez Diaz M.D. [id number]
--- NOTE | 2024-02-08 13:51 | XRR_ITS ---
PROCEDURE INFORMATION: Exam: XR Chest Exam date and time: 02/08/2024 2:06 PM Age: 63 years old Clinical indication: Shortness of breath; Prior surgery; Surgery date: 6+ months; Surgery type: Cabg 2011; Additional info: SOB TECHNIQUE: Imaging protocol: Radiologic exam of the chest. Views: 1 view. COMPARISON: CR XR chest 1V portable [id number] 12/16/2023 7:53 PM FINDINGS: Lungs: Mild interstitial prominence which may be seen with interstitial pulmonary edema or pneumonia. Pleural spaces: Small pleural effusions. Heart/Mediastinum: Cardiomegaly. Bones/joints: Previous median sternotomy. XR/XR chest 1V portable [id number] IMPRESSION: 1. Mild interstitial prominence which may be seen with interstitial pulmonary edema or pneumonia. 2. Small pleural effusions.
[2024-02-08 14:02] LABS: ABG PH Result 7.39 (7.35-7.45); Arterial Blood Gas Hematocrit 37.9 % (37-47); Base Excess ABG 13.9 mmol/L (-2.0-2.0); Blood Gas Allen Test Pos; Blood Gas Operator Identificat WALCI; Blood Gas Sample Site Radial, left; Blood Gas Sample Type Arterial; Carboxyhemoglobin 1.8 %THgb (0.4-20.1); HGB O2 Sat 90.5 % (95-100); Methemoglobin 0.2 % (0.4-1.5); Oxygen Device NC; PO2 ABG 64.1 mmHg (80.0-100.0); Total Hemoglobin 12.4 g/dL (12-16)
--- NOTE | 2024-02-08 14:02 | ED_ITS ---
HPI - SOB/Dyspnea 2 General: Chief Complaint: Shortness of Breath/Dyspnea Stated Complaint: SOB Time Seen by Provider: 02/08/24 13:49 Source: patient and EMS Mode of arrival: EMS Limitations: no limitations History of Present Illness: HPI Narrative: 63-year-old female has a history of COPD is on 3 L oxygen at baseline states that she started having increasing shortness of breath today and called EMS patient was in the 70s on her 3 L was turned to 6 L currently is on 5 L states she has had a cough and congestion as well denies any fever denies any chest pain. Denies any worse improving factors Associated symptoms: Deny abdominal pain, chest pain, fever(s), nausea or vomiting Review of Systems 2 Const: Denies: fever(s), chills, body aches or change in appetite ENMT: Denies: throat pain or dental pain Card: Denies: chest pain Resp: Reports: dyspnea and non-productive cough GI: Denies: abdominal pain, nausea, vomiting or diarrhea Musc: Denies: neck pain or back pain Skin/Breast: Denies: rash Neuro: Denies: headache(s) PFSH ED 2 PFSH: Medical History Psychiatric care Dyslipidemia Morbid obesity Venous stasis Tobacco abuse, in remission HTN (hypertension) Anticoagulant long-term use GUS (obstructive sleep apnea) Oxygen dependent COPD (chronic obstructive pulmonary disease) Major depressive disorder, recurrent, severe with psychotic symptoms Surgical History H/O mechanical aortic valve replacement Family History Other CAD (coronary artery disease) Dementia Diabetes Hypertension Social History Smoking and tobacco/nicotine status: former use of tobacco/nicotine Second hand smoke exposure: No Alcohol intake: never Substance/Drug Use: never Adopted: No Caregiver/support person: No Lives independently: Yes Household members: spouse Housing: House Marital status: Marital status details: for 36 years Number of children: 2 Number of grandchildren: 0 Highest education level completed: 10th Grade Current occupational status: disabled Pets and animals: Yes Pets & animals: dog(s) Leisure activites: reading and other Leisure activities details: alona Sexually active: Yes Do you think of yourself as: Straight/Heterosexual Current gender identity: Female Abbi/Moravian: Islam Special abbi needs: No Agree to transfusion: Yes Female Reproductive History: Para: 2 Physical Exam 2 Const: COMMON NORMALS: patient oriented x3 GENERAL APPEARANCE: ill appearing HENMT: COMMON NORMALS: normocephalic and atraumatic HEAD & SCALP: n ormocephalic and atraumatic Neck/C-Spine: COMMON NORMALS: full ROM and supple Chest: COMMONS NORMALS: normal inspection of the chest Resp: COMMON NORMALS: No retractions EFFORT & INSPECTION: Yes tachypneic and Yes respiratory distress AUSCULTATION: wheezes Cardio: COMMON NORMALS: regular rate, regular rhythm and No murmurs present (Cardio) RATE: regular rate RHYTHM: regular rhythm Extremity: COMMON NORMALS: normal to inspection and full ROM Neuro: COMMON NORMALS: patient oriented x3, moves all extremities and no focal motor deficits Psych: COMMON NORMALS: mental status grossly normal, Normal thought process present and cooperative THOUGHT PROCESS: Normal thought process present Skin: COMMON NORMALS: no rashes or lesions noted and no wounds GENERAL SKIN EXAM: no rashes or lesions noted Course 2 Vital Signs: Vital signs: Vital Signs Temperature 98.6 F 02/08/24 13:48 Pulse Rate 88 02/08/24 14:15 Respiratory Rate 20 H 02/08/24 13:56 Blood Pressure 168/75 02/08/24 13:48 Pulse Oximetry 94 02/08/24 14:11 Oxygen Delivery Me thod Nasal Cannula 02/08/24 13:56 Oxygen Flow Rate 5 02/08/24 13:56 Fraction of Inspir ed Oxygen 40 02/08/24 14:11 MDM - SOB/Dyspnea Medical Decision Making Patient presents here with COPD exacerbation with hypercapnia and hypoxia I did place her on BiPAP for hypercapnia she is improving here. I spoke to the hospitalist will admit at this time. Medical Records I reviewed the patient's medical records. Lab Data I reviewed the patient's lab results. 02/08/24 14:28 02/08/24 14:28 Labs/Radiology: Radiology Impressions Chest X-Ray 02/08/24 13:51 IMPRESSION: 1. Mild interstitial prominence which may be seen with interstitial pulmonary edema or pneumonia. 2. Small pleural effusions. Laboratory Results WBC 12.35 10^3/uL (3.29-11.43) H 02/08/24 14:28 RBC 4.32 10^6/uL (3.85-5.65) 02/08/24 14:28 Hgb 11.80 g/dL (11.27-16.99) 02/08/24 14:28 Hct 38.2 % (36-47) 02/08/24 14:28 MCV 88.4 fl (85-98) 02/08/24 14:28 MCH 27.3 pg (27-33) 02/08/24 14:28 MCHC 30.9 g/dL (30-55) 02/08/24 14:28 RDW 15.9 % (12.1-15.1) H 02/08/24 14:28 Plt Count 305 10^3/cmm (157-399) 02/08/24 14:28 MPV 8.9 fL (7.4-10.4) 02/08/24 14:28 Neut % (Auto) 71.9 % 02/08/24 14:28 Lymph % (Auto) 21.2 % 02/08/24 14:28 [place] % (Auto) 3.8 % 02/08/24 14:28 Eos % (Auto) 2.3 % 02/08/24 14:28 Baso % (Auto) 0.4 % 02/08/24 14:28 Neut # (Auto) 8.87 10^3/uL (1.8-7.7) H 02/08/24 14:28 Lymph # (Auto) 2.6 10^3/uL (0.8-4.8) 02/08/24 14:28 [place] # (Auto) 0.5 10^3/uL (0.2-0.9) 02/08/24 14:28 Eos # (Auto) 0.3 10^3/uL (0.0-0.8) 02/08/24 14:28 Baso # (Auto) 0.1 10^3/uL (0.0-0.1) 02/08/24 14:28 Nucleated RBC % (auto) 0 % 02/08/24 14:28 Nucleated RBCs # 0.0 /100WBC 02/08/24 14:28 Specimen Type Arterial 02/08/24 13:51 Sample Site Radial, left 02/08/24 13:51 ABG pH 7.39 (7.35-7.45) 02/08/24 13:51 ABG pCO2 70.0 mmHg (35-45) H* 02/08/24 13:51 ABG pO2 64.1 mmHg (80.0-100.0) L 02/08/24 13:51 ABG HCO3 42.0 mmol/L (22-26) H 02/08/24 13:51 ABG Base Excess 13.9 mmol/L (-2.0-2.0) H 02/08/24 13:51 [place] Test Pos 02/08/24 13:51 Hematocrit 37.9 % (37-47) 02/08/24 13:51 Hgb O2 Saturation 90.5 % (95-100) L 02/08/24 13:51 Carboxyhemoglobin 1.8 %THgb (0.4-20.1) 02/08/24 13:51 Methemoglobin 0.2 % (0.4-1.5) L 02/08/24 13:51 Total Hemoglobin 12.4 g/dL (12-16) 02/08/24 13:51 O2 Delivery Device Nc 02/08/24 13:51 O2 Liters/Min 5.0 % 02/08/24 13:51 Workers Compensation Claims Examiner ID [place] 02/08/24 13:51 Sodium 144 mmol/L (136-145) 02/08/24 14:28 Potassium 3.8 mmol/L (3.5-5.1) 02/08/24 14:28 Chloride 94 mmol/L (98-107) L 02/08/24 14:28 Carbon Dioxide 40 mmol/L (22-29) H 02/08/24 14:28 Anion Gap 13.8 (5-19) 02/08/24 14:28 BUN 7 mg/dL (8-23) L 02/08/24 14:28 Creatinine 0.5 mg/dL (0.5-0.9) 02/08/24 14:28 GFR Calculation 125.0 mL/min (90-130) 02/08/24 14:28 Glucose 107 mg/dL (65-115) 02/08/24 14:28 Calculated Osmolality 296 mOsm/kg (285-295) H 02/08/24 14:28 Calcium 9.8 mg/dL (8.5-10.5) 02/08/24 14:28 Total Bilirubin 0.5 mg/dL (0.15-1.2) 02/08/24 14:28 AST 15 U/L (0-32) 02/08/24 14:28 ALT 12 U/L (0-33) 02/08/24 14:28 Alkaline Phosphatase 124 U/L (35-105) H 02/08/24 14:28 NT-Pro-B Natriuret Pep 248 pg/mL (0-125) H 02/08/24 14:28 NT-Pro-B Natriuret Pep Cancelled 02/08/24 14:28 Total Protein 7.6 g/dL (6.6-8.7) 02/08/24 14:28 Albumin 3.9 g/dL (3.5-5.2) 02/08/24 14:28 Globulin 3.7 g/dL (1.3-4.6) 02/08/24 14:28 All radiology interpretation(s) finalized by discharge Critical Care Time 2 Critical Care Time: Critical Care Time: Yes Total Critical Care Time: 40 Attestation: The high probability of a clinically significant, sudden or life threatening deterioration of the patient's resp system(s) required my full and direct attention, intervention and personal management. The critical care time is as shown. This time is in addition to time spent performing any reported procedures but includes the following: [x] Data and vital sign review and interpretation [x] Patient assessment, examination and intervention [x] Documentation [x] Medication orders and management Discharge Plan Discharge Patient Disposition: Admitted As Inpatient Clinical Impression: Acute exacerbation of chronic obstructive airways disease, Acute respiratory failure with hypoxia and hypercapnia Condition: Stable Prescriptions: No Action atorvastatin 20 mg tablet 20 mg PO DAILY magnesium oxide 400 mg magnesium tablet 400 mg PO BID aspirin [Adult Low Dose Aspirin] 81 mg tablet,delayed release (DR/EC) 81 mg PO DAILY gabapentin 300 mg capsule 300 mg PO TID theophylline 200 mg tablet 400 mg PO DAILY furosemide 40 mg tablet 40 mg PO DAILY albuterol sulfate [ProAir HFA] 90 mcg/actuation HFA aerosol inhaler 2 puff INHALATION Q6H PRN (Reason: shortness of breath ) levothyroxine 75 mcg capsule 75 mcg PO DAILY amlodipine 5 mg tablet 5 mg PO DAILY Qty: 90 3RF Daliresp 250 mcg tablet 250 mcg PO DAILY cyclobenzaprine 10 mg tablet 10 mg PO BID Trelebrenda Ellipta 100-62.5-25 mcg blister with device 1 inh inhalation DAILY Breztri Aerosphere 160-9-4.8 mcg/actuation HFA aerosol inhaler 2 inh inhalation BID ferrous sulfate [Tommy-Time] 325 mg (65 mg iron) tablet 325 mg PO DAILY levothyroxine 125 mcg capsule 125 mcg PO DAILY levothyroxine 112 mcg capsule 112 mcg PO DAILY (DME) oxygen-air delivery systems Device See Rx Instructions .Route Rx Instructions: As directed potassium chloride [Klor-Con M20] 20 mEq tablet,ER particles/crystals 20 meq PO DAILY brexpiprazole 2 mg tablet See Rx Instructions .ROUTE .COMPLEX Qty: 30 5RF Dose Instruction: Take 1 tablet by mouth once daily Rx Instructions: Take 1 tablet by mouth once daily hydroxyzine pamoate 25 mg capsule See Rx Instructions .ROUTE .COMPLEX Qty: 90 2RF Dose Instruction: TAKE 1 CAPSULE BY MOUTH THREE TIMES DAILY NEEDED FOR ANXIETY Rx Instructions: TAKE 1 CAPSULE BY MOUTH THREE TIMES DAILY NEEDED FOR ANXIETY duloxetine 60 mg capsule,delayed release(DR/EC) See Rx Instructions .ROUTE .COMPLEX Qty: 60 5RF Dose Instruction: Take 1 capsule by mouth twice daily Rx Instructions: Take 1 capsule by mouth twice daily warfarin 2.5 mg tablet 2.5 mg PO DAILY Qty: 30 3RF Protocol: Dose Management Condition: Friday Dose/Route: 4 mg Instruction: 1 x 4 mg tablet Condition: Friday Dose/Route: 0 mg Instruction: 0 tablets Condition: Friday Dose/Route: 3 mg Instruction: 1 x 3 mg tablet Condition: Friday Dose/Route: 3 mg Instruction: 1 x 3 mg tablet Condition: Dose/Route: 4 mg Instruction: 1 x 4 mg tablet Condition: Friday Dose/Route: 4 mg Instruction: 1 x 4 mg tablet Condition: Friday Dose/Route: 4 mg Instruction: 1 x 4 mg tablet Protocol Text: Adjustment Start Date: 02/05/24 INR Value: 4.1 INR Date: 02/02/24 Recheck Date: 02/12/24 Rx Instructions: Take as directed, based on INR results warfarin 1 mg tablet 1 mg PO DAILY Qty: 90 3RF Protocol: Dose Management Condition: Friday Dose/Route: 4 mg Instruction: 1 x 4 mg tablet Condition: Friday Dose/Route: 0 mg Instruction: 0 tablets Condition: Friday Dose/Route: 3 mg Instruction: 1 x 3 mg tablet Condition: Friday Dose/Route: 3 mg Instruction: 1 x 3 mg tablet Condition: Dose/Route: 4 mg Instruction: 1 x 4 mg tablet Condition: Friday Dose/Route: 4 mg Instruction: 1 x 4 mg tablet Condition: Friday Dose/Route: 4 mg Instruction: 1 x 4 mg tablet Protocol Text: Adjustment Start Date: 02/05/24 INR Value: 4.1 INR Date: 02/02/24 Recheck Date: 02/12/24 Rx Instructions: Take as directed, based on INR results warfarin 2 mg tablet 2 mg PO DAILY Qty: 90 3RF Protocol: Dose Management Condition: Friday Dose/Route: 4 mg Instruction: 1 x 4 mg tablet Condition: Friday Dose/Route: 0 mg Instruction: 0 tablets Condition: Friday Dose/Route: 3 mg Instruction: 1 x 3 mg tablet Condition: Friday Dose/Route: 3 mg Instruction: 1 x 3 mg tablet Condition: Dose/Route: 4 mg Instruction: 1 x 4 mg tablet Condition: Friday Dose/Route: 4 mg Instruction: 1 x 4 mg tablet Condition: Friday Dose/Route: 4 mg Instruction: 1 x 4 mg tablet Protocol Text: Adjustment Start Date: 02/05/24 INR Value: 4.1 INR Date: 02/02/24 Recheck Date: 02/12/24 warfarin 5 mg tablet 5 mg PO DAILY Qty: 30 5RF Protocol: Dose Management Condition: Friday Dose/Route: 4 mg Instruction: 1 x 4 mg tablet Condition: Friday Dose/Route: 0 mg Instruction: 0 tablets Condition: Friday Dose/Route: 3 mg Instruction: 1 x 3 mg tablet Condition: Friday Dose/Route: 3 mg Instruction: 1 x 3 mg tablet Condition: Dose/Route: 4 mg Instruction: 1 x 4 mg tablet Condition: Friday Dose/Route: 4 mg Instruction: 1 x 4 mg tablet Condition: Friday Dose/Route: 4 mg Instruction: 1 x 4 mg tablet Protocol Text: Adjustment Start Date: 02/05/24 INR Value: 4.1 INR Date: 02/02/24 Recheck Date: 02/12/24 warfarin 3 mg tablet See Rx Instructions .ROUTE .COMPLEX Qty: 90 3RF Protocol: Dose Management Condition: Friday Dose/Route: 4 mg Instruction: 1 x 4 mg tablet Condition: Friday Dose/Route: 0 mg Instruction: 0 tablets Condition: Friday Dose/Route: 3 mg Instruction: 1 x 3 mg tablet Condition: Friday Dose/Route: 3 mg Instruction: 1 x 3 mg tablet Condition: Dose/Route: 4 mg Instruction: 1 x 4 mg tablet Condition: Friday Dose/Route: 4 mg Instruction: 1 x 4 mg tablet Condition: Friday Dose/Route: 4 mg Instruction: 1 x 4 mg tablet Protocol Text: Adjustment Start Date: 02/05/24 INR Value: 4.1 INR Date: 02/02/24 Recheck Date: 02/12/24 Dose Instruction: TAKE 1 TABLET BY MOUTH EVERY DAY Rx Instructions: TAKE 1 TABLET BY MOUTH EVERY DAY warfarin 4 mg tablet 4 mg PO DAILY Qty: 90 3RF Protocol: Dose Management Condition: Friday Dose/Route: 4 mg Instruction: 1 x 4 mg tablet Condition: Friday Dose/Route: 0 mg Instruction: 0 tablets Condition: Friday Dose/Route: 3 mg Instruction: 1 x 3 mg tablet Condition: Friday Dose/Route: 3 mg Instruction: 1 x 3 mg tablet Condition: Dose/Route: 4 mg Instruction: 1 x 4 mg tablet Condition: Friday Dose/Route: 4 mg Instruction: 1 x 4 mg tablet Condition: Friday Dose/Route: 4 mg Instruction: 1 x 4 mg tablet Protocol Text: Adjustment Start Date: 02/05/24 INR Value: 4.1 INR Date: 02/02/24 Recheck Date: 02/12/24 Zithromax Z-Mitesh 250 mg tablet See Rx Instructions .ROUTE .COMPLEX Qty: 6 0RF Rx Instructions: For 250 mg dose pack: take 500 mg today (day 1), then 250 mg for 4 days (days 2-5) benzonatate 200 mg capsule 200 mg PO TID Qty: 30 0RF Referrals: Mita Carvajal FNP [Primary Care Provider] - Coding Level of Care Code ED Pipe Line Inspector for Rhett Coker
[2024-02-08] MEDS: albuterol 2.5 mg/3 mL Neb INHALATION (14:14)
[2024-02-08 14:34] LABS: Basophils # 0.1 10^3/uL (0.0-0.1); Basophils % 0.4 %; Eosinophils # 0.3 10^3/uL (0.0-0.8); Eosinophils % 2.3 %; Hematocrit 38.2 % (36-47); Lymphocytes # 2.6 10^3/uL (0.8-4.8); Lymphocytes % 21.2 %; Mean Corpuscular HGB Conc 30.9 g/dL (30-55); Mean Corpuscular Hemoglobin 27.3 pg (27-33); Mean Corpuscular Volume 88.4 fl (85-98); Mean Platelet Volume 8.9 fL (7.4-10.4); Monocytes # 0.5 10^3/uL (0.2-0.9); Monocytes % 3.8 %; Neutrophils # 8.87 10^3/uL (1.8-7.7); Neutrophils % 71.9 %; Nucleated Red Blood Cells % 0 %; Platelet Count 305 10^3/cmm (157-399); Red Blood Count 4.32 10^6/uL (3.85-5.65); Red Cell Distribution Width 15.9 % (12.1-15.1); White Blood Count 12.35 10^3/uL (3.29-11.43)
[2024-02-08 15:01] LABS: Alanine Aminotransferase 12 U/L (0-33); Albumin Level 3.9 g/dL (3.5-5.2); Alkaline Phosphatase 124 U/L (35-105); Anion Gap 13.8 (5-19); Aspartate Amino Transferase 15 U/L (0-32); Blood Urea Nitrogen 7 mg/dL (8-23); Calcium 9.8 mg/dL (8.5-10.5); Carbon Dioxide 40 mmol/L (22-29); Chloride 94 mmol/L (98-107); Creatinine Clr Calc Pharmacy 165.7706; Globulin 3.7 g/dL (1.3-4.6); Glucose 107 mg/dL (65-115); NT Pro B Type Natriuretic Pept 248 pg/mL (0-125); Osmolality Calculated 296 mOsm/kg (285-295); Potassium 3.8 mmol/L (3.5-5.1); Sodium 144 mmol/L (136-145); Total Bilirubin 0.5 mg/dL (0.15-1.2); Total Protein 7.6 g/dL (6.6-8.7)
--- NOTE | 2024-02-08 15:26 | P.HP_ITS ---
Providers/Chief Complaint 2 Primary Care Provider: JW Garsia Chief Complaint: SOB History of Present Illness Daisy Corey is a 63 year old female With past medical history of COPD, hypertension, anticoagulation, obstructive sleep apnea, previous tobacco use, dyslipidemia, morbid obesity, major depressive disorder presented to the hospital today for shortness of breath. He called EMS and o2 was in 70's on her 3L. Pt has a cough and feels congested as well. Denies chest pain, fever, nausea, vomitting. Medications/Allergies Home Medications Medication Instructions Recorded Confirmed Last Taken Type albuterol sulfate 90 mcg/actuation 2 puff inhalation Q6H PRN 12/06/19 12/12/23 Unknown History aerosol inhaler (ProAir HFA) shortness of breath aspirin 81 mg tablet,delayed 81 mg PO DAILY 12/06/19 12/12/23 Unknown History release (Adult Low Dose Aspirin) furosemide 40 mg tablet 40 mg PO DAILY 12/06/19 12/12/23 Unknown History gabapentin 300 mg capsule 300 mg PO TID 12/06/19 12/12/23 Unknown History magnesium oxide 400 mg PO BID 12/06/19 12/12/23 Unknown History theophylline 200 mg tablet 400 mg PO DAILY 12/06/19 12/12/23 Unknown History atorvastatin 20 mg tablet 20 mg PO DAILY 02/11/20 12/12/23 Unknown History warfarin 2.5 mg tablet 2.5 mg PO DAILY #30 tabs 04/12/20 02/05/24 Unknown Rx warfarin 1 mg tablet 1 mg PO DAILY #90 tabs 06/07/20 02/05/24 Unknown Rx amlodipine 5 mg tablet 5 mg PO DAILY #90 tabs 09/06/20 12/12/23 Unknown Rx cyclobenzaprine 10 mg tablet 10 mg PO BID 03/09/21 12/12/23 Unknown History roflumilast 250 mcg tablet 250 mcg PO DAILY 03/09/21 12/12/23 Unknown History (Daliresp) warfarin 2 mg tablet 2 mg PO DAILY #90 tabs 01/15/22 02/05/24 Unknown Rx oxygen-air delivery systems 03/13/22 12/12/23 Unknown History budesonide 160 mcg-glycopyr 9 2 inh inhalation BID 03/22/22 12/12/23 Unknown History mcg-formot 4.8 mcg/actuation HFA inhaler (Breztri Aerosphere) ferrous sulfate 325 mg (65 mg 325 mg PO DAILY 03/22/22 12/12/23 Unknown History iron) tablet (Tommy-Time) fluticasone fur. 100 mcg-umeclid 1 inh inhalation DAILY 03/22/22 12/12/23 Unknown History 62.5 mcg-vilant 25 mcg inhalat.powder (Trelegy Ellipta) levothyroxine 112 mcg capsule 112 mcg PO DAILY 12/31/22 12/12/23 Unknown History levothyroxine 125 mcg capsule 125 mcg PO DAILY 12/31/22 12/12/23 Unknown History levothyroxine 75 mcg capsule 75 mcg PO DAILY 12/31/22 12/12/23 Unknown History warfarin 5 mg tablet 5 mg PO DAILY #30 tabs 03/24/23 02/05/24 Unknown Rx warfarin 3 mg tablet See Rx Instructions .Route 09/19/23 02/05/24 Unknown Rx .COMPLEX #90 tabs potassium chloride 20 mEq 20 meq PO DAILY 10/02/23 12/12/23 Unknown History tablet,extended release(part/cryst) (Klor-Con M) warfarin 4 mg tablet 4 mg PO DAILY #90 tabs 11/28/23 02/05/24 Unknown Rx brexpiprazole 2 mg tablet See Rx Instructions .Route 12/12/23 12/12/23 Unknown Rx .COMPLEX #30 tabs duloxetine 60 mg capsule,delayed See Rx Instructions .Route 12/12/23 12/12/23 Unknown Rx release .COMPLEX #60 ea hydroxyzine pamoate 25 mg capsule See Rx Instructions .Route 12/12/23 12/12/23 Unknown Rx .COMPLEX #90 caps azithromycin 250 mg tablet See Rx Instructions PO .COMPLEX #6 12/16/23 Unknown Rx (Zithromax Z-Mitesh) tabs benzonatate 200 mg capsule 200 mg PO TID Cough #30 caps 12/16/23 Unknown Rx Allergies Allergy/AdvReac Type Severity Reaction Status Date / Time Penicillins Allergy Unknown Verified 10/31/23 10:00 PFSH Acute 2 PFSH: Medical History Psychiatric care Dyslipidemia Morbid obesity Venous stasis Tobacco abuse, in remission HTN (hypertension) Anticoagulant long-term use GUS (obstructive sleep apnea) Oxygen dependent COPD (chronic obstructive pulmonary disease) Major depressive disorder, recurrent, severe with psychotic symptoms Surgical History H/O mechanical aortic valve replacement Family History Other CAD (coronary artery disease) Dementia Diabetes Hypertension Social History Smoking and tobacco/nicotine status: former use of tobacco/nicotine Second hand smoke exposure: No Alcohol intake: never Substance/Drug Use: never Adopted: No Caregiver/support person: No Lives independently: Yes Household members: spouse Housing: House Marital status: Marital status details: for 36 years Number of children: 2 Number of grandchildren: 0 Highest education level completed: 10th Grade Current occupational status: disabled Pets and animals: Yes Pets & animals: dog(s) Leisure activites: reading and other Leisure activities details: alona Sexually active: Yes Do you think of yourself as: Straight/Heterosexual Current gender identity: Female Abbi/Congregation: Religion Special abbi needs: No Agree to transfusion: Yes Female Reproductive History: Para: 2 Vitals/I&O/Wt Last Vital Signs Temp 98.6 F 02/08/24 13:48 Pulse 88 02/08/24 14:15 Resp 20 H 02/08/24 13:56 BP 168/75 02/08/24 13:48 Pulse Ox 94 02/08/24 14:11 O2 Del Method Nasal Cannula 02/08/24 13:56 O2 Flow Rate 5 02/08/24 13:56 FiO2 40 02/08/24 14:11 Weight last 48 hrs Weight 136.078 kg Physical Exam 2 Narrative: General: Alert oriented x3, patient seen sitting up in bed on 5L NC HEENT: Normocephalic, atraumatic, EOMI, Cardio: Regular rate rhythm, normal S1-S2, Respiratory: Ronchi b/l., mild wheezing GI: Abdomen soft, nontender, nondistended, bowel sounds + Extremities: chronic venous statis changes, right le large area of erythema with purulent drainage, warm Data 02/08/24 14:28 02/08/24 14:28 A&P Assessment and plan (1) Major depressive disorder, recurrent, severe with psychotic symptoms: (2) HTN (hypertension): Qualifiers: Hypertension type: primary hypertension Qualified Code(s): I10 - Essential (primary) hypertension (3) Morbid obesity: (4) COPD (chronic obstructive pulmonary disease): (5) Oxygen dependent: (6) Acute exacerbation of chronic obstructive airways disease: (7) GUS (obstructive sleep apnea): (8) Tobacco abuse, in remission: (9) Cellulitis: Plan #COPD exacerbation #Pneumonia #Right leg cellulitis #HTN #Oxygen dependency #Anxiety #CHF diastolic #Afib, rate controlled #Chronic AC with warfarin - check dimer - continue solu medrol 40 bid - place on vanc and aztreonam - sputum gm stain culture - check blood culture - confirm home meds - duoneb q6h scheduled - place on gentle fluid hydration with ns 74 cc/hr - continue bipap at this time - transfer to icu - cxr shows possible pneumonia - check esr, sed rate - pharmacy to dose warfarin - check tsh - continue aspirin, atorvastatin, - confirm dose of levothyroxine and then order. - pts home meds are unconfirmed - pt had some evidence of aortic stenosis on previous echo in 2021, will repeat full code dvt ppx: warfarin Attestations 2 Medical Necessity Statement*: > 2 midnight stay for mgmt for cellulitis, pneumonia Diagnoses Major depressive disorder, recurrent, severe with psychotic symptoms F33.3 Primary hypertension I10 Hypertension type: primary hypertension Morbid obesity E66.01 COPD (chronic obstructive pulmonary disease) J44.9 Oxygen dependent Z99.81 Acute exacerbation of chronic obstructive airways disease J44.1 GUS (obstructive sleep apnea) G47.33 Tobacco abuse, in remission F17.201 Cellulitis L03.90
[2024-02-08 16:07] LABS: INR 3.23 (0.8-1.2)
[2024-02-08 16:09] LABS: D Dimer 0.86 ug/mLFEU (0-0.59)
[2024-02-08] MEDS: pantoprazole 40 mg SDV IVP (16:09)
[2024-02-08] MEDS: cefTRIAXone 1,000 MG in sodium chloride 0.9% (plus) 50 ML 100 MG IV (16:14)
[2024-02-08] MEDS: ipratropium-albuterol 3 mL Neb INHALATION ×2 (16:16→19:44)
[2024-02-08 16:25] LABS: Procalcitonin 0.05 ng/mL (0-0.5)
[2024-02-08] MEDS: azithromycin 500 MG in sodium chloride 0.9% 250 ML 250 MG IV (16:51)
[2024-02-08] MEDS: vancomycin 1,500 MG/300 ML PIGGYBACK 200 MG IV (18:09)
[2024-02-08] MEDS: aztreonam 2,000 MG in sodium chloride 0.9% (plus) 100 ML 200 MG IV (18:10)
[2024-02-08] MEDS: sodium chloride 0.9% 1,000 ML 75 ML IV (18:10)
[2024-02-08] MEDS: duloxetine 60 mg Capsule PO (18:13)
[2024-02-08] MEDS: cyclobenzaprine 10 mg Tablet PO (18:13)
[2024-02-08] MEDS: benzonatate 100 mg Capsule 200 MG PO (20:36)
[2024-02-08] MEDS: gabapentin 300 mg Capsule PO (20:36)
[2024-02-09] VITALS (189 sets, daily range): BP systolic 89–180; BP diastolic 51–115; PULSE 71–128; RESP 10–32; TEMP 36.4–36.7; O2SAT 79–97
[2024-02-09 04:37] LABS: Basophils % 0.1 %; Hematocrit 37.1 % (36-47); Lymphocytes # 0.7 10^3/uL (0.8-4.8); Lymphocytes % 6.3 %; Mean Corpuscular HGB Conc 30.2 g/dL (30-55); Mean Corpuscular Hemoglobin 26.6 pg (27-33); Mean Corpuscular Volume 88.1 fl (85-98); Mean Platelet Volume 9.6 fL (7.4-10.4); Monocytes # 0.1 10^3/uL (0.2-0.9); Monocytes % 0.9 %; Neutrophils # 10.74 10^3/uL (1.8-7.7); Neutrophils % 92.3 %; Nucleated Red Blood Cells % 0 %; Platelet Count 330 10^3/cmm (157-399); Red Blood Count 4.21 10^6/uL (3.85-5.65); Red Cell Distribution Width 15.4 % (12.1-15.1); White Blood Count 11.63 10^3/uL (3.29-11.43)
[2024-02-09 04:54] LABS: INR 3.59 (0.8-1.2)
[2024-02-09 04:57] LABS: Anion Gap 12.5 (5-19); Carbon Dioxide 37 mmol/L (22-29); Chloride 96 mmol/L (98-107); Creatinine Clr Calc Pharmacy 146.8962; Glomerular Filtration Rate 101.3 mL/min (90-130); Glucose 168 mg/dL (65-115); Potassium 3.5 mmol/L (3.5-5.1); Sodium 142 mmol/L (136-145)
[2024-02-09 05:11] LABS: Blood Urea Nitrogen 10 mg/dL (8-23); Calcium 8.8 mg/dL (8.5-10.5); Magnesium 1.9 mg/dL (1.7-2.3); Osmolality Calculated 297 mOsm/kg (285-295)
[2024-02-09] MEDS: vancomycin 1,500 MG/300 ML PIGGYBACK 200 MG IV ×2 (05:17→18:11)
--- NOTE | 2024-02-09 06:00 | USCV_ITS ---
Daisy Corey Age: 63 Gender: F : 1960 Exam Date: 02/09/2024 10:29 Ordering Phys: Viki Victor MD Technologist: Exam Location: [facility] [place] Indication: bilat edema PROCEDURES: The venous duplex Doppler examination of both lower extremities was performed in the standard fashion. The following venous structures were evaluated: common femoral vein, profunda vein, proximal portion of the greater saphenous vein, superficial femoral vein, and the popliteal vein. FINDINGS: Normal 2-D Doppler and augmentation and compressibility throughout the lower extremity venous structures. Additional imaging through the proximal calf veins also reveals no thrombus. Limited evaluation of the greater saphenous vein is patent with no thrombus. CONCLUSIONS No evidence of right lower extremity DVT. No evidence of left lower extremity DVT. Magdy Vera MD (Electronically Signed) Final Date: 09 February 2024 16:25 S
--- NOTE | 2024-02-09 06:00 | USCV_ITS ---
Daisy Corey Age: 63 Gender: F : 1960 Exam Date: 02/09/2024 10:04 Ordering Phys: Viki Victor MD Technologist: Exam Location: [facility] Indication: hx of ao pros pedal edema BP: 132 / 78 HR: 85 Rhythm: Sinus Technical Quality: Adequate MEASUREMENTS (Male / Female) Normal Values 2D ECHO LV Diastolic Diameter PLAX 4.9 cm 4.2 - 5.9 / 3.9 - 5.3 cm IVS Diastolic Thickness 1.3 cm 0.6 - 1.0 / 0.6 - 0.9 cm IVS Systolic Thickness 1.8 cm LVPW Diastolic Thickness 1.1 cm 0.6 - 1.0 / 0.6 - 0.9 cm LVPW Systolic Thickness 1.6 cm LVOT Diameter 2.0 cm LV Ejection Fraction 2D Teich 52.4 % LV Ejection Fraction MOD 2C 52.5 % LV Ejection Fraction 2C AL 54.5 % LA Diameter 3.6 cm Aorta at Sinotubular Diameter 3.3 cm M-MODE LA Ao Ratio MM 1.9 AV Cusp Separation MM 1.9 cm DOPPLER AV Peak Velocity 94.0 cm/s LVOT Peak Velocity 89.0 cm/s AV Area Cont Eq vti 3.0 cm squared AV Area Cont Eq pk 3.0 cm squared MV Peak Velocity 185.0 cm/s MV Area PHT 5.3 cm squared Mitral E to A Ratio 1.4 TR Peak Velocity 108.0 cm/s TR Peak Gradient 4.7 mmHg TV Peak E Velocity 59.0 cm/s Right Atrial Pressure 3.0 mmHg Pulmonary Artery Systolic Pressu 7.7 mmHg PV Peak Velocity 149.0 cm/s FINDINGS Left Ventricle Normal LV size with a slightly diminished ejection fraction of 52%. Mild diffuse hypokinesia of the septum. Moderate concentric left ventricular hypertrophy. (Echo contrast - Optison was used to delineate the endocardium and to estimate the LV ejection fraction) but was of suboptimal quality.Grade III/IV diastolic dysfunction (restrictive filling pattern), severely elevated filling pressures. Right Ventricle Possibly of normal size and ejection fraction Right Atrium Right atrium not well visualized. Left Atrium Possibly of normal size Mitral Valve Moderate mitral annular calcification. Aortic Valve Possible bioprosthetic valve with aortic position. The leaflets could not be visualized well. Normal Doppler velocity across the valve Tricuspid Valve Tricuspid valve not well visualized. Pulmonic Valve Pulmonic valve not well visualized. Pericardium No pericardial effusion. Aorta Normal aortic annulus size. IVC Inferior vena cava not visualized. CONCLUSIONS Normal LV size with a slightly diminished ejection fraction of 52%. Mild diffuse hypokinesia of the septum. Moderate concentric left ventricular hypertrophy. (Echo contrast - Optison was used to delineate the endocardium and to estimate the LV ejection fraction) but was of suboptimal quality.Grade III/IV diastolic dysfunction (restrictive filling pattern), severely elevated filling pressures. Moderate mitral annular calcification. Possible bioprosthetic valve with aortic position. The leaflets could not be visualized well. No evidence of prosthetic valve stenosis There is no pericardial effusion. Technically difficult study because of the poor ultrasonic window. Dr Swetha Benitez MD FACC (Electronically Signed) Final Date: 09 February 2024 23:16 S
[2024-02-09] MEDS: ipratropium-albuterol 3 mL Neb INHALATION ×3 (07:40→19:53)
[2024-02-09] MEDS: aztreonam 2,000 MG in sodium chloride 0.9% (plus) 100 ML 200 MG IV (07:46)
[2024-02-09] MEDS: sodium chloride 0.9% 1,000 ML 75 ML IV (07:46)
[2024-02-09] MEDS: atorvastatin 40 mg Tablet 20 MG PO (08:54)
[2024-02-09] MEDS: duloxetine 60 mg Capsule PO ×2 (08:54→18:11)
[2024-02-09] MEDS: benzonatate 100 mg Capsule 200 MG PO ×3 (08:54→20:02)
[2024-02-09] MEDS: amlodipine 5 mg Tablet PO (08:55)
[2024-02-09] MEDS: gabapentin 300 mg Capsule PO ×3 (08:55→20:02)
[2024-02-09] MEDS: cyclobenzaprine 10 mg Tablet PO ×2 (08:55→18:11)
[2024-02-09] MEDS: aspirin 81 mg EC Tablet PO (08:55)
[2024-02-09] MEDS: roflumilast 500 mcg Tablet 250 MCG PO (08:55)
[2024-02-09] MEDS: ferrous sulfate EC 325 mg Tablet PO (08:55)
--- NOTE | 2024-02-09 10:13 | PC.PHAR ---
PT STATES TAKES WARFARIN 4 MG ONCE WEEKLY ON MONDAYS RIGHT NOW.
--- NOTE | 2024-02-09 13:29 | P.PN_ITS ---
Subjective 2 Subjective: Patient is doing well Had a bowel movement today Mild leukocytosis No fever D-dimer unremarkable INR supratherapeutic For mechanical valve and A-fib Vitals/I&O/Wt Last Vital Signs Temp 98.1 F 02/09/24 04:00 Pulse 83 02/09/24 08:10 Resp 17 02/09/24 08:10 BP 142/113 02/09/24 08:10 Pulse Ox 90 02/09/24 08:10 O2 Del Method Nasal Cannula 02/09/24 07:25 O2 Flow Rate 4 02/09/24 07:25 FiO2 40 02/08/24 16:32 02/08/24 02/09/24 02/09/24 22:59 06:59 14:59 Intake Total 780 / 780 880 / 1660 2240 / 2240 Output Total 300 / 300 600 / 600 Balance 480 / 480 880 / 1360 1640 / 1640 Weight last 48 hrs Weight 150.956 kg Weight 150.338 kg Weight 136.078 kg Physical Exam 2 Narrative: Lymphedema weakness venous stasis dermatitis Left leg cellulitis Pleasant cough Morbidly obese Currently on 2 L Nonfocal neuroexam GCS 15 Data 02/09/24 03:33 02/09/24 03:33 Micro: Microbiology 02/09/24 01:00 Gram Stain - Final Sputum - Expectorated Sputum 02/08/24 16:06 Blood Culture - Preliminary Blood SPECIMEN COLLECTED 02/08/24 16:01 Blood Culture - Preliminary Blood SPECIMEN COLLECTED A&P Assessment and plan (1) HTN (hypertension): Qualifiers: Hypertension type: primary hypertension Qualified Code(s): I10 - Essential (primary) hypertension (2) Major depressive disorder, recurrent, severe with psychotic symptoms: (3) H/O mechanical aortic valve replacement: (4) Venous stasis: (5) Anticoagulant long-term use: (6) Cellulitis: (7) Mild cognitive impairment: (8) COPD (chronic obstructive pulmonary disease): (9) Oxygen dependent: (10) GUS (obstructive sleep apnea): (11) Tobacco abuse, in remission: Plan Left leg cellulitis: Continue antibiotics Afebrile Cultures negative Diastolic CHF with exacerbation Continue diuresis Acute on chronic COPD exacerbation related to CHF exacerbation Currently on 4 L At home uses 3 L Patient is also hypertensive Hypertensive urgency adjust antibiotic regimen Patient does not follow-up with wound care clinic or podiatry Therapeutic INR, pharmacy consultation for Coumadin dosing Patient has mechanical aortic valve and underlying A-fib Full code Cardiac diet Attestations 2 Medical Necessity Statement*: Monitor and continue management Diagnoses Primary hypertension I10 Hypertension type: primary hypertension Major depressive disorder, recurrent, severe with psychotic symptoms F33.3 H/O mechanical aortic valve replacement Z95.2 Venous stasis I87.8 Anticoagulant long-term use Z79.01 Cellulitis L03.90 Mild cognitive impairment G31.84 COPD (chronic obstructive pulmonary disease) J44.9 Oxygen dependent Z99.81 GUS (obstructive sleep apnea) G47.33 Tobacco abuse, in remission F17.201
[2024-02-09] MEDS: warfarin 1 mg Tablet 3 MG PO (13:57)
[2024-02-09] MEDS: bumetanide 0.25 mg/mL SDV 10 mL 2 MG IVP (13:58)
--- NOTE | 2024-02-09 18:01 | PC.NURSE ---
Report called to DANGELO Greenfield in Med surg.
--- NOTE | 2024-02-09 18:05 | PC.NURSE ---
Spoke with pt's daughter and gave update and new room number. Understanding noted.
[2024-02-09] MEDS: pantoprazole 40 mg SDV IVP (18:11)
--- NOTE | 2024-02-09 18:46 | PC.NURSE ---
Patient arrived to Med Surg at 1835. Vancomycin running.
[2024-02-09] MEDS: nystatin powder 15 gm Btl 1 APPLIC TOPICAL (21:58)
[2024-02-10] VITALS (19 sets, daily range): BP systolic 95–147; BP diastolic 54–79; PULSE 80–97; RESP 15–20; TEMP 36.4–36.9; O2SAT 85–96
[2024-02-10] MEDS: bumetanide 0.25 mg/mL SDV 10 mL 2 MG IVP ×2 (02:05→17:02)
[2024-02-10 05:48] LABS: Basophils # 0.1 10^3/uL (0.0-0.1); Basophils % 0.3 %; Eosinophils # 0.2 10^3/uL (0.0-0.8); Hematocrit 36.9 % (36-47); Lymphocytes # 1.3 10^3/uL (0.8-4.8); Lymphocytes % 7.5 %; Mean Corpuscular HGB Conc 31.2 g/dL (30-55); Mean Corpuscular Volume 86.6 fl (85-98); Monocytes % 5.4 %; Neutrophils # 15.21 10^3/uL (1.8-7.7); Neutrophils % 85.4 %; Nucleated Red Blood Cells % 0 %; Platelet Count 352 10^3/cmm (157-399); Red Blood Count 4.26 10^6/uL (3.85-5.65); Red Cell Distribution Width 15.9 % (12.1-15.1); White Blood Count 17.81 10^3/uL (3.29-11.43)
[2024-02-10 06:05] LABS: Vancomycin Trough 14.6 ug/mL (10-15)
[2024-02-10] MEDS: vancomycin 1,500 MG/300 ML PIGGYBACK 200 MG IV ×2 (06:11→18:15)
[2024-02-10 06:25] LABS: Anion Gap 15.2 (5-19); Blood Urea Nitrogen 11 mg/dL (8-23); Calcium 8.2 mg/dL (8.5-10.5); Carbon Dioxide 36 mmol/L (22-29); Chloride 94 mmol/L (98-107); Creatinine Clr Calc Pharmacy 178.1341; Glucose 123 mg/dL (65-115); Osmolality Calculated 295 mOsm/kg (285-295); Potassium 3.2 mmol/L (3.5-5.1); Sodium 142 mmol/L (136-145)
[2024-02-10 06:32] LABS: INR 3.86 (0.8-1.2)
[2024-02-10] MEDS: ipratropium-albuterol 3 mL Neb INHALATION ×4 (07:37→20:07)
[2024-02-10] MEDS: amlodipine 5 mg Tablet PO (09:01)
[2024-02-10] MEDS: gabapentin 300 mg Capsule PO ×3 (09:01→20:31)
[2024-02-10] MEDS: roflumilast 500 mcg Tablet 250 MCG PO (09:02)
[2024-02-10] MEDS: duloxetine 60 mg Capsule PO ×2 (09:03→17:02)
[2024-02-10] MEDS: cyclobenzaprine 10 mg Tablet PO ×2 (09:04→17:02)
[2024-02-10] MEDS: benzonatate 100 mg Capsule 200 MG PO ×3 (09:04→20:31)
[2024-02-10] MEDS: atorvastatin 40 mg Tablet 20 MG PO (09:04)
[2024-02-10] MEDS: aspirin 81 mg EC Tablet PO (09:05)
[2024-02-10] MEDS: ferrous sulfate EC 325 mg Tablet PO (09:05)
[2024-02-10] MEDS: nystatin powder 15 gm Btl 1 APPLIC TOPICAL ×2 (10:45→17:03)
--- NOTE | 2024-02-10 10:52 | PC.NURSE ---
This RN has reviewed DANGELO Jensen nurse residence charting and agrees with all documentation.
--- NOTE | 2024-02-10 11:54 | P.PN_ITS ---
Subjective 2 Subjective: This morning noticed high white count Patient is not endorsing any new complaints Will request compression stockings Replenish potassium check magnesium level Continue vancomycin along Coumadin and Bumex INR is 3.8, hold Coumadin dose Vitals/I&O/Wt Last Vital Signs Temp 98.4 F 02/10/24 11:08 Pulse 93 02/10/24 11:41 Resp 20 H 02/10/24 11:41 BP 133/73 02/10/24 11:08 Pulse Ox 92 02/10/24 11:41 O2 Del Method BiPAP 02/10/24 11:41 O2 Flow Rate 5 02/10/24 11:08 FiO2 40 02/10/24 11:41 02/09/24 02/10/24 02/10/24 22:59 06:59 14:59 Intake Total 1080 / 3797.5 300 / 4097.5 660 / 660 Output Total 750 / 1700 600 / 2300 500 / 500 Balance 330 / 2097.5 -300 / 1797.5 160 / 160 Weight last 48 hrs Weight 152.861 kg Weight 150.956 kg Weight 150.338 kg Weight 136.078 kg Physical Exam 2 Narrative: Patient is awake and alert Close MD edematous Cellulitis of lower extremity without significant improvement in edema or redness Hemodynamically stable Currently on 4 L nasal cannula Morbidly obese Mild intertrigo abdominal pannus GCS 15 No new focal deficit Hypertensive Data 02/10/24 05:15 02/10/24 05:15 Micro: Microbiology 02/08/24 16:06 Blood Culture - Preliminary Blood NEGATIVE TO DATE 02/08/24 16:01 Blood Culture - Preliminary Blood NEGATIVE TO DATE 02/09/24 01:00 Gram Stain - Final Sputum - Expectorated Sputum A&P Assessment and plan (1) HTN (hypertension): Qualifiers: Hypertension type: primary hypertension Qualified Code(s): I10 - Essential (primary) hypertension (2) H/O mechanical aortic valve replacement: (3) Venous stasis: (4) Anticoagulant long-term use: (5) Morbid obesity: (6) Cellulitis: (7) Mild cognitive impairment: (8) COPD (chronic obstructive pulmonary disease): (9) Oxygen dependent: (10) Acute respiratory failure with hypoxia and hypercapnia: Plan Cellulitis May need CT scan of lower extremity to rule out abscess in case patient starts back and fever because we have noticed high white count today I discontinued her anaerobic gram-negative coverage yesterday she is only on vancomycin for now Will request compression stockings Hypokalemia: Replenished Check magnesium level Diastolic CHF exacerbation continue Bumex high-dose No significant signs of contraction alkalosis Supratherapeutic INR holding Coumadin for now Full code Cardiac diet Not ready to be discharged because of white count 17,000 Cultures negative Mechanical valve, A-fib without RVR Coumadin on hold Patient high bicarb is related to chronic hypercapnia, she was compensated with normal pH And request overnight pulse ox study to see if she would qualify for BiPAP Attestations 2 Medical Necessity Statement*: Continue medical management Diagnoses Primary hypertension I10 Hypertension type: primary hypertension H/O mechanical aortic valve replacement Z95.2 Venous stasis I87.8 Anticoagulant long-term use Z79.01 Morbid obesity E66.01 Cellulitis L03.90 Mild cognitive impairment G31.84 COPD (chronic obstructive pulmonary disease) J44.9 Oxygen dependent Z99.81 Acute respiratory failure with hypoxia and hypercapnia J96.01; J96.02
[2024-02-10] MEDS: potassium chloride ER 20 mEq Tablet 40 MEQ PO (14:43)
[2024-02-10] MEDS: lisinopril 20 mg Tablet PO (14:43)
--- NOTE | 2024-02-10 20:15 | PC.RESP ---
Patient was placed on her baseline 2lpm NC at 2019, patient dropped to 80% so this RT increased her to 6lpm , patient took evening medications from the nurse and was then placed back on bipap at 2025.
--- NOTE | 2024-02-10 23:38 | ECG_ITS ---
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 Measurements Intervals [place] Rate: 80 P: 42 ID: [id number] QRS: 20 QRSD: 130 T: 97 QT: 379 QTc: 437 Interpretive Statements SINUS RHYTHM WITH OCCASIONAL SUPRAVENTRICULAR PREMATURE COMPLEXES LATERAL MYOCARDIAL INFARCTION , OF INDETERMINATE AGE [40+ ms Q WAVE AND/OR ST/T ABNORMALITY IN I/aVL/V5/V6] INTERPRETATION BASED ON A DEFAULT AGE OF 40 YEARS Compared to ECG 02/08/2024 14:12:46 Myocardial infarct finding now present Intraventricular conduction delay no longer present T-wave abnormality no longer present Possible ischemia no longer present Electronically Signed On 02-12-2024 0:07:10 CDT by Swetha Benitez M.D. [id number]
[2024-02-11] VITALS (12 sets, daily range): BP systolic 97–117; BP diastolic 49–63; PULSE 63–88; RESP 17–20; TEMP 36.4–36.7; O2SAT 85–95; BMI 54.3
--- NOTE | 2024-02-11 00:38 | PC.NURSE ---
Patient stated that she was having chest pain. Dr Cao notified and new orders were placed.
[2024-02-11 01:08] LABS: Troponin(5th) Baseline 15 ng/L (0-10)
--- NOTE | 2024-02-11 01:43 | ECG_ITS ---
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 Measurements Intervals [place] Rate: 69 P: 47 LA: 162 QRS: 21 QRSD: 125 T: 85 QT: 404 QTc: 433 Interpretive Statements SINUS RHYTHM WITH OCCASIONAL SUPRAVENTRICULAR PREMATURE COMPLEXES POSSIBLE LATERAL MYOCARDIAL INFARCTION , OF INDETERMINATE AGE [30 ms Q WAVE IN I/aVL/V5/V6] Diffuse nonspecific ST-T change Compared to ECG 02/10/2024 23:43:40 No significant changes Electronically Signed On 02-12-2024 0:16:25 CDT by Swetha Benitez M.D. [id number]
[2024-02-11 03:29] LABS: Basophils % 0.4 %; Eosinophils # 0.3 10^3/uL (0.0-0.8); Eosinophils % 2.5 %; Hematocrit 34.2 % (36-47); Lymphocytes # 1.8 10^3/uL (0.8-4.8); Lymphocytes % 17.3 %; Mean Corpuscular HGB Conc 30.1 g/dL (30-55); Mean Corpuscular Hemoglobin 26.7 pg (27-33); Mean Corpuscular Volume 88.6 fl (85-98); Mean Platelet Volume 8.9 fL (7.4-10.4); Monocytes # 0.8 10^3/uL (0.2-0.9); Monocytes % 7.7 %; Neutrophils # 7.38 10^3/uL (1.8-7.7); Neutrophils % 71.7 %; Nucleated Red Blood Cells % 0 %; Platelet Count 293 10^3/cmm (157-399); Red Blood Count 3.86 10^6/uL (3.85-5.65); Red Cell Distribution Width 16.3 % (12.1-15.1); White Blood Count 10.29 10^3/uL (3.29-11.43)
[2024-02-11 03:46] LABS: INR 4.26 (0.8-1.2)
[2024-02-11 03:48] LABS: Troponin 5 2HR 13.19 ng/L (0-10)
[2024-02-11 03:51] LABS: Anion Gap 13.4 (5-19); Blood Urea Nitrogen 14 mg/dL (8-23); Calcium 7.6 mg/dL (8.5-10.5); Carbon Dioxide 36 mmol/L (22-29); Chloride 95 mmol/L (98-107); Creatinine Clr Calc Pharmacy 98.9634; Glomerular Filtration Rate 63.4 mL/min (90-130); Glucose 103 mg/dL (65-115); Magnesium 1.9 mg/dL (1.7-2.3); Osmolality Calculated 293 mOsm/kg (285-295); Potassium 3.4 mmol/L (3.5-5.1); Sodium 141 mmol/L (136-145)
[2024-02-11 03:52] LABS: Troponin 5 2HR Delta -1.81 ABS# (0-10)
--- NOTE | 2024-02-11 04:56 | PC.NURSE ---
Patient BP was 98/57 and potassium was 3.4. Patient had 2mg bumex due at 0400. Dr brand was notified and gave order to hold bumex till 0700.
[2024-02-11] MEDS: vancomycin 1,500 MG/300 ML PIGGYBACK 200 MG IV ×2 (06:17→17:47)
[2024-02-11 06:58] LABS: Troponin 5 6HR 12.33 ng/L (0-10)
[2024-02-11 06:59] LABS: Troponin 5 6HR Delta -2.67 ng/L (0-12)
[2024-02-11] MEDS: bumetanide 0.25 mg/mL SDV 10 mL 2 MG IVP ×2 (07:14→17:46)
[2024-02-11] MEDS: ipratropium-albuterol 3 mL Neb INHALATION ×3 (07:48→15:29)
--- NOTE | 2024-02-11 07:53 | ECG_ITS ---
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 Measurements Intervals [place] Rate: 75 P: 19 AR: 118 QRS: 11 QRSD: 120 T: 95 QT: 424 QTc: 477 Interpretive Statements SINUS RHYTHM WITH SHORT AR INTERVAL WITH OCCASIONAL SUPRAVENTRICULAR PREMATURE COMPLEXES MODERATE INTRAVENTRICULAR CONDUCTION DELAY [110+ ms QRS DURATION] MODERATE T-WAVE ABNORMALITY, CONSIDER LATERAL ISCHEMIA [-0.1+ mV T-WAVE IN I/aVL/V5/V6] Compared to ECG 02/11/2024 01:43:15 Short AR interval now present Intraventricular conduction delay now present T-wave abnormality now present Possible ischemia now present Myocardial infarct finding no longer present Electronically Signed On 02-12-2024 0:17:10 CDT by Swetha Benitez M.D. [id number]
--- NOTE | 2024-02-11 08:23 | CTR_ITS ---
PROCEDURE INFORMATION: Exam: CTA Chest With Contrast Exam date and time: 02/11/2024 9:32 PM Age: 63 years old Clinical indication: Other: Hypoxia; Additional info: Hypocxia TECHNIQUE: Imaging protocol: Computed tomographic angiography of the chest with contrast. Exam focused on the arteries. 3D rendering (Not supervised by radiologist): MIP and/or 3D reconstructed images were created by the technologist. Radiation optimization: All CT scans at this facility use at least one of these dose optimization techniques: automated exposure control; mA and/or kV adjustment per patient size (includes targeted exams where dose is matched to clinical indication); or iterative reconstruction. Contrast material: OMNI 350; Contrast volume: 100 ml; Contrast route: INTRAVENOUS (IV); COMPARISON: CR (CHEST, ) 02/08/2024 2:06 PM RADIATION DOSE METRICS: Total DLP (mGy-cm): 545 FINDINGS: Pulmonary arteries: Overall exam quality is poor for evaluating the pulmonary arteries due to respiratory motion artifacts. There is no central or saddle embolus. However there are a few questionable nonocclusive filling defects in the bilateral pulmonary arteries. Evaluation is very difficult due to the extensive motion and is uncertain if these are real findings. Aorta: Unremarkable. No aortic aneurysm. No aortic dissection. Other arteries: Moderate calcified plaque throughout the arterial tree Lungs: Multiple foci of subsegmental and subpleural atelectasis in the lower lobes and upper lobes. There is mucoid debris and fluid in the distal trachea, left mainstem bronchus and scattered areas of the dependent bronchi. Pleural spaces: Small bilateral pleural effusions layer posteriorly. Heart: The heart is enlarged and there is a prosthetic aortic valve. Coronary arteries: Minimal calcified plaques in the coronary arteries. Lymph nodes: Unremarkable. No enlarged lymph nodes. Kidneys and ureters: 6 mm calcification in the parenchyma of the left kidney. Bones/joints: Unremarkable. No acute fracture. Soft tissues: Laxity of the upper abdominal wall. Other findings: Chronic mediastinal postop changes. CT/CT angio chest PE protcl [id number] IMPRESSION: 1. No central or saddle embolus. However overall exam quality is poor and evaluation of the more peripheral vessels is very limited. Consider repeat study if there is significant clinical suspicion for emboli. 2. Multiple foci of atelectasis in both lungs along with small pleural effusions. 3. Tracheal and bronchial mucoid debris
[2024-02-11] MEDS: roflumilast 500 mcg Tablet 250 MCG PO (08:37)
[2024-02-11] MEDS: duloxetine 60 mg Capsule PO ×2 (08:37→17:46)
[2024-02-11] MEDS: benzonatate 100 mg Capsule 200 MG PO ×3 (08:37→20:56)
[2024-02-11] MEDS: ferrous sulfate EC 325 mg Tablet PO (08:37)
[2024-02-11] MEDS: potassium chloride ER 20 mEq Tablet 40 MEQ PO (08:37)
[2024-02-11] MEDS: gabapentin 300 mg Capsule PO ×3 (08:37→20:56)
[2024-02-11] MEDS: cyclobenzaprine 10 mg Tablet PO ×2 (08:38→17:46)
[2024-02-11] MEDS: amlodipine 5 mg Tablet PO (08:38)
[2024-02-11] MEDS: atorvastatin 40 mg Tablet 20 MG PO (08:38)
[2024-02-11] MEDS: aspirin 81 mg EC Tablet PO (08:38)
[2024-02-11] MEDS: lisinopril 20 mg Tablet PO (08:38)
[2024-02-11] MEDS: nystatin powder 15 gm Btl 1 APPLIC TOPICAL ×2 (08:49→17:45)
[2024-02-11 08:57] LABS: ABG PCO2 69.4 mmHg (35-45); ABG PH Result 7.35 (7.35-7.45); Arterial Blood Gas Hematocrit 33.2 % (37-47); Base Excess ABG 10.6 mmol/L (-2.0-2.0); Blood Gas Allen Test Pos; Blood Gas Operator Identificat WALCI; Blood Gas Sample Site Radial, left; Blood Gas Sample Type Arterial; HCO3 ABG 38.4 mmol/L (22-26); Oxygen Device NC; PO2 ABG 57.8 mmHg (80.0-100.0)
--- NOTE | 2024-02-11 09:52 | PC.SOCIAL ---
IMM Update Pg. 2 of IMM updated and reviewed with patient who verbalized understanding. Copy provided.
--- NOTE | 2024-02-11 11:21 | P.PN_ITS ---
Subjective 2 Subjective: Overnight hypoxia worsened Currently on 6 L nasal cannula Saturating 86 to 88% ABG showed compensated pH for hypercapnia however she is still hypoxic Requested CTA chest Patient would qualify for BiPAP, patient has hypercapnia with hypoxia she would definitely need BiPAP otherwise she will have to high risk for readmissions including cardiopulmonary distress Patient is supratherapeutic Vitals/I&O/Wt Last Vital Signs Temp 97.6 F 02/11/24 04:00 Pulse 64 02/11/24 08:00 Resp 18 02/11/24 08:00 BP 97/58 02/11/24 07:21 Pulse Ox 95 02/11/24 07:49 O2 Del Method High Flow Nasal Cannula 02/11/24 08:19 O2 Flow Rate 7 02/11/24 08:19 FiO2 45 02/11/24 07:49 02/10/24 02/11/24 02/11/24 22:59 06:59 14:59 Intake Total 540 / 1422 540 / 540 Output Total 500 / 1350 Balance 540 / 572 -500 / 72 540 / 540 Weight last 48 hrs Weight 152.861 kg Weight 152.861 kg Physical Exam 2 Narrative: A-fib without RVR Anasarca Lower extremity edema with cellulitis Bilateral venous stasis dermatitis Right leg cellulitis worse creatinine left No sign of vascular compromise Distended abdomen nontender S1, S2 variable Currently on 7 L nasal cannula Awake and alert Nonfocal neuroexam Data 02/11/24 02:45 02/11/24 02:45 Micro: Microbiology 02/09/24 01:00 Gram Stain - Final Sputum - Expectorated Sputum Sputum Culture - Final Methicillin Resis Staph Aureus A&P Assessment and plan (1) HTN (hypertension): Qualifiers: Hypertension type: primary hypertension Qualified Code(s): I10 - Essential (primary) hypertension (2) H/O mechanical aortic valve replacement: (3) Venous stasis: (4) Anticoagulant long-term use: (5) Morbid obesity: (6) Cellulitis: (7) Mild cognitive impairment: (8) COPD (chronic obstructive pulmonary disease): (9) Oxygen dependent: (10) Acute respiratory failure with hypoxia and hypercapnia: Plan Cellulitis White count improved, no fever, cultures negative, I would not request CT scan of lower extremities Continue antibiotic Wound care with Santyl, Kerlix and ABD, topical antibiotic daily dressing change Hypokalemia: Potassium supplementation on board MRSA pneumonia: Worsening hypoxia, patient will require BiPAP at home to prevent readmissions and cardiopulmonary distress, overnight pulse ox study she did show hypoxia Diastolic CHF exacerbation continue Bumex high-dose No significant signs of contraction alkalosis Supratherapeutic INR holding Coumadin for now INR 4.2 likely from drug interaction versus CHF related liver congestion Full code Cardiac diet Cultures negative Mechanical valve, A-fib without RVR Coumadin on hold Continue physical therapy, requested CT chest rule out PE Attestations 2 Medical Necessity Statement*: Continue medical management Coding Level of Care Code 06171 Diagnoses Primary hypertension I10 Hypertension type: primary hypertension H/O mechanical aortic valve replacement Z95.2 Venous stasis I87.8 Anticoagulant long-term use Z79.01 Morbid obesity E66.01 Cellulitis L03.90 Mild cognitive impairment G31.84 COPD (chronic obstructive pulmonary disease) J44.9 Oxygen dependent Z99.81 Acute respiratory failure with hypoxia and hypercapnia J96.01; J96.02
[2024-02-11] MEDS: bacitracin ointment Pkt 1 EACH TOPICAL (12:02)
[2024-02-11] MEDS: collagenase oint 30 gm 1 APPLIC TOPICAL (12:03)
[2024-02-11] MEDS: acetylcysteine 200 mg/mL SDV 4 mL INHALATION (15:29)
[2024-02-11 18:03] LABS: Vancomycin Trough 24.2 ug/mL (10-15)
[2024-02-11] MEDS: iohexol 350 mg/mL 500 mL Btl (per mL) IV (21:44)
[2024-02-12] VITALS (17 sets, daily range): BP systolic 96–128; BP diastolic 54–70; PULSE 67–90; RESP 12–22; TEMP 36.6–37.1; O2SAT 80–94; BMI 55.0
[2024-02-12] MEDS: bumetanide 0.25 mg/mL SDV 10 mL 2 MG IVP ×3 (04:03→18:24)
[2024-02-12 07:32] LABS: Basophils % 0.3 %; Eosinophils # 0.3 10^3/uL (0.0-0.8); Eosinophils % 3.3 %; Lymphocytes # 1.5 10^3/uL (0.8-4.8); Lymphocytes % 15.5 %; Mean Corpuscular Hemoglobin 26.4 pg (27-33); Mean Platelet Volume 9.2 fL (7.4-10.4); Monocytes # 0.6 10^3/uL (0.2-0.9); Monocytes % 6.2 %; Neutrophils # 7.36 10^3/uL (1.8-7.7); Neutrophils % 74.3 %; Nucleated Red Blood Cells % 0 %; Platelet Count 293 10^3/cmm (157-399); Red Blood Count 3.75 10^6/uL (3.85-5.65); Red Cell Distribution Width 16.3 % (12.1-15.1)
[2024-02-12] MEDS: acetylcysteine 200 mg/mL SDV 4 mL INHALATION ×4 (07:50→21:15)
[2024-02-12] MEDS: ipratropium-albuterol 3 mL Neb INHALATION ×4 (07:51→21:15)
[2024-02-12 07:52] LABS: Anion Gap 11.6 (5-19); Blood Urea Nitrogen 22 mg/dL (8-23); Carbon Dioxide 34 mmol/L (22-29); Chloride 96 mmol/L (98-107); Creatinine Clr Calc Pharmacy 81.5775; Glomerular Filtration Rate 50.3 mL/min (90-130); Glucose 100 mg/dL (65-115); Osmolality Calculated 289 mOsm/kg (285-295); Potassium 3.6 mmol/L (3.5-5.1); Sodium 138 mmol/L (136-145)
--- NOTE | 2024-02-12 09:49 | P.PN_ITS ---
Subjective 2 Subjective: Morning patient ripped her BiPAP mask off She was on 10 L when I saw her And requesting ABG She is showing signs of wheezing added steroids CBC has improved with no signs of fever cultures negative Creatinine 1.1 I spoke with the daughter to give her an update There is no signs of PE Will try to get her BiPAP approved for home most likely she will stay until her oxygen company is around 4 to 5 L Vitals/I&O/Wt Last Vital Signs Temp 98.3 F 02/12/24 08:00 Pulse 79 02/12/24 08:00 Resp 20 H 02/12/24 08:00 BP 102/59 02/12/24 08:00 Pulse Ox 89 L 02/12/24 08:00 O2 Del Method Nasal Cannula 02/12/24 08:00 O2 Flow Rate 5 02/11/24 16:00 FiO2 45 02/12/24 08:00 02/11/24 02/12/24 02/12/24 22:59 06:59 14:59 Intake Total 316.667 / 1096.667 240 / 1336.667 Output Total 500 / 500 Balance 316.667 / 1096.667 -260 / 836.667 Weight last 48 hrs Weight 154.675 kg Weight 152.861 kg Physical Exam 2 Narrative: Morbid obese Not taking deep breaths Active wheezing Currently on 10 L nasal cannula Awake and alert Skin is dry Lower extremity edema Purulent cellulitis right leg No need to debridement Able to answer my questions appropriately Anxious appearing Currently saturating 88% on 10 L S1, S2 variable Data 02/12/24 07:07 02/12/24 07:07 Micro: Microbiology 02/09/24 01:00 Gram Stain - Final Sputum - Expectorated Sputum Sputum Culture - Final Methicillin Resis Staph Aureus A&P Assessment and plan (1) HTN (hypertension): Qualifiers: Hypertension type: primary hypertension Qualified Code(s): I10 - Essential (primary) hypertension (2) H/O mechanical aortic valve replacement: (3) Venous stasis: (4) Anticoagulant long-term use: (5) Morbid obesity: (6) Cellulitis: (7) Mild cognitive impairment: (8) COPD (chronic obstructive pulmonary disease): (9) Oxygen dependent: (10) Acute respiratory failure with hypoxia and hypercapnia: Plan Cellulitis I will switch her to p.o. antibiotics, cultures negative, afebrile continue wound care dressing on daily basis, no need of debridement at this point Acute on chronic hypoxic hypercarbic failure: Intermittent use of BiPAP Patient has been noncompliant, needs a lot of verbal cues and direction to keep her compliant Hypokalemia: Potassium 3.6, daily plan is MRSA pneumonia: Worsening hypoxia, patient will require BiPAP at home to prevent readmissions and cardiopulmonary distress, overnight pulse ox study did show hypoxia Diastolic CHF exacerbation continue Bumex high-dose I will increase the dose to 3 times a day No significant signs of contraction alkalosis, her bicarb is in compensation to hypercarbia Supratherapeutic INR holding Coumadin for now INR 3.6 today Full code Cardiac diet Cultures negative Mechanical valve, A-fib without RVR Coumadin on hold Continue physical therapy, CTA chest has not shown any sign of PE it is consistent with atelectasis, I have counseled patient to use bedside incentive spirometer and flutter valve Anxiety gets worse with hypoxia, she has to stay on BiPAP in case she gets worse Attestations 2 Medical Necessity Statement*: Continue hospitalization Diagnoses Primary hypertension I10 Hypertension type: primary hypertension H/O mechanical aortic valve replacement Z95.2 Venous stasis I87.8 Anticoagulant long-term use Z79.01 Morbid obesity E66.01 Cellulitis L03.90 Mild cognitive impairment G31.84 COPD (chronic obstructive pulmonary disease) J44.9 Oxygen dependent Z99.81 Acute respiratory failure with hypoxia and hypercapnia J96.01; J96.02
[2024-02-12] MEDS: benzonatate 100 mg Capsule 200 MG PO ×3 (10:10→20:46)
[2024-02-12] MEDS: roflumilast 500 mcg Tablet 250 MCG PO (10:11)
[2024-02-12] MEDS: aspirin 81 mg EC Tablet PO (10:11)
[2024-02-12 10:12] LABS: ABG PH Result 7.37 (7.35-7.45); Arterial Blood Gas Hematocrit 32.1 % (37-47); Base Excess ABG 10.7 mmol/L (-2.0-2.0); Blood Gas Operator Identificat glc; Blood Gas Sample Site Brachial, left; Blood Gas Sample Type Arterial; HCO3 ABG 38.1 mmol/L (22-26); Oxygen Device NC; PO2 ABG 53.7 mmHg (80.0-100.0)
[2024-02-12] MEDS: atorvastatin 40 mg Tablet 20 MG PO (10:12)
[2024-02-12] MEDS: amlodipine 5 mg Tablet PO (10:12)
[2024-02-12] MEDS: potassium chloride ER 20 mEq Tablet 40 MEQ PO (10:12)
[2024-02-12] MEDS: lisinopril 20 mg Tablet PO (10:13)
[2024-02-12] MEDS: duloxetine 60 mg Capsule PO ×2 (10:13→18:24)
[2024-02-12] MEDS: gabapentin 300 mg Capsule PO ×3 (10:13→20:47)
[2024-02-12] MEDS: collagenase oint 30 gm 1 APPLIC TOPICAL (10:13)
[2024-02-12] MEDS: nystatin powder 15 gm Btl 1 APPLIC TOPICAL ×2 (10:14→18:24)
[2024-02-12] MEDS: methylPREDNISolone sod succ 125 mg/2 mL INJ 60 MG IVP ×2 (10:14→20:52)
[2024-02-12] MEDS: bacitracin ointment Pkt 1 EACH TOPICAL (10:15)
[2024-02-12] MEDS: acetaminophen 325 mg Tablet 650 MG PO (13:09)
[2024-02-12] MEDS: vancomycin 1,500 MG/300 ML PIGGYBACK 200 MG IV (15:23)
[2024-02-13] VITALS (17 sets, daily range): BP systolic 117–157; BP diastolic 67–84; PULSE 65–100; RESP 16–20; TEMP 36.4–36.6; O2SAT 85–96; BMI 54.5
[2024-02-13] MEDS: bumetanide 0.25 mg/mL SDV 10 mL 2 MG IVP ×3 (01:28→17:18)
[2024-02-13 06:12] LABS: Hematocrit 33.8 % (36-47); Lymphocytes # 0.6 10^3/uL (0.8-4.8); Lymphocytes % 7.4 %; Mean Corpuscular HGB Conc 31.1 g/dL (30-55); Mean Corpuscular Hemoglobin 27.1 pg (27-33); Mean Corpuscular Volume 87.3 fl (85-98); Mean Platelet Volume 9.6 fL (7.4-10.4); Monocytes # 0.2 10^3/uL (0.2-0.9); Monocytes % 1.8 %; Neutrophils # 7.84 10^3/uL (1.8-7.7); Neutrophils % 90.5 %; Nucleated Red Blood Cells % 0 %; Platelet Count 298 10^3/cmm (157-399); Red Blood Count 3.87 10^6/uL (3.85-5.65); Red Cell Distribution Width 15.9 % (12.1-15.1); White Blood Count 8.67 10^3/uL (3.29-11.43)
[2024-02-13 06:22] LABS: INR 2.58 (0.8-1.2)
--- NOTE | 2024-02-13 06:27 | PC.NURSE ---
Messaged requesting order for a arita for patient. The patient is on IV Bumex every 8 hours and is incontinent of large amounts of urine but also gets up to the commode. The patient is on heated high flow oxygen during the day and Bipap at night and desats when transferring to the commode and takes at least 10minutes to recover when back in bed. never responded to voalte message, nurse will pass onto the day shift to discuss with rounding for possible arita orders till patients respiratory status improves.
[2024-02-13 06:31] LABS: Alanine Aminotransferase 13 U/L (0-33); Albumin Level 3.5 g/dL (3.5-5.2); Alkaline Phosphatase 102 U/L (35-105); Aspartate Amino Transferase 15 U/L (0-32); Blood Urea Nitrogen 23 mg/dL (8-23); Calcium 8.4 mg/dL (8.5-10.5); Carbon Dioxide 38 mmol/L (22-29); Chloride 96 mmol/L (98-107); Creatinine Clr Calc Pharmacy 111.5424; Globulin 3.7 g/dL (1.3-4.6); Glomerular Filtration Rate 72.7 mL/min (90-130); Glucose 179 mg/dL (65-115); Osmolality Calculated 304 mOsm/kg (285-295); Sodium 143 mmol/L (136-145); Total Bilirubin 0.4 mg/dL (0.15-1.2); Total Protein 7.2 g/dL (6.6-8.7)
[2024-02-13 06:47] LABS: Anion Gap 12.7 (5-19); Potassium 3.7 mmol/L (3.5-5.1)
[2024-02-13] MEDS: acetylcysteine 200 mg/mL SDV 4 mL INHALATION ×4 (07:45→21:11)
[2024-02-13] MEDS: ipratropium-albuterol 3 mL Neb INHALATION ×4 (07:45→21:11)
[2024-02-13] MEDS: amlodipine 5 mg Tablet PO (09:10)
[2024-02-13] MEDS: potassium chloride ER 20 mEq Tablet 40 MEQ PO (09:11)
[2024-02-13] MEDS: duloxetine 60 mg Capsule PO ×2 (09:11→17:17)
[2024-02-13] MEDS: roflumilast 500 mcg Tablet 250 MCG PO (09:11)
[2024-02-13] MEDS: benzonatate 100 mg Capsule 200 MG PO ×3 (09:11→20:59)
[2024-02-13] MEDS: lisinopril 20 mg Tablet PO (09:11)
[2024-02-13] MEDS: aspirin 81 mg EC Tablet PO (09:11)
[2024-02-13] MEDS: atorvastatin 40 mg Tablet 20 MG PO (09:11)
[2024-02-13] MEDS: bacitracin ointment Pkt 1 EACH TOPICAL (09:12)
[2024-02-13] MEDS: nystatin powder 15 gm Btl 1 APPLIC TOPICAL ×2 (09:12→17:18)
[2024-02-13] MEDS: gabapentin 300 mg Capsule PO ×3 (09:12→20:59)
[2024-02-13] MEDS: methylPREDNISolone sod succ 125 mg/2 mL INJ 60 MG IVP ×2 (09:12→21:05)
[2024-02-13] MEDS: vancomycin 1,500 MG/300 ML PIGGYBACK 200 MG IV (09:13)
[2024-02-13] MEDS: collagenase oint 30 gm 1 APPLIC TOPICAL (09:13)
--- NOTE | 2024-02-13 10:57 | PM.PN ---
Subjective Subjective: Patient is less anxious Stating that her breathing is slightly better Lower extremity swelling has slightly improved Mild signs of contraction alkalosis Spoke with her daughter as well Most likely she will stay until Friday we are wanting to her oxygen requirement to improve We will ask [employer] to hold off on delivering BiPAP today because she will need home oxygen evaluation as well and for which they have to come again to deliver oxygen tanks Vitals/I&O/Wt Last Vital Signs Temp 97.9 F 02/13/24 04:00 Pulse 77 02/13/24 08:00 Resp 17 02/13/24 08:00 BP 143/80 02/13/24 07:21 Pulse Ox 95 02/13/24 07:51 O2 Del Method BiPAP 02/13/24 07:51 O2 Flow Rate 60 02/12/24 12:54 FiO2 50 02/13/24 07:51 02/12/24 02/13/24 02/13/24 22:59 06:59 14:59 Intake Total 900 / 1500 120 / 1620 Output Total 750 / 750 800 / 1550 Balance 150 / 750 -680 / 70 Weight last 48 hrs Weight 153.314 kg Weight 154.675 kg Physical Exam Narrative: Signs of fluid load improving Awake and alert Less anxious today Pleasant cooperative Currently on 10 L high flow nasal cannula Abdomen distended nontender Lower extremity edema improving Cellulitis improving as well GCS 15 No new focal deficit S1, S2 Data 02/13/24 05:48 02/13/24 05:48 A&P Assessment and plan (1) HTN (hypertension): Qualifiers: Hypertension type: primary hypertension Qualified Code(s): I10 - Essential (primary) hypertension (2) H/O mechanical aortic valve replacement: (3) Venous stasis: (4) Dyslipidemia: (5) Anticoagulant long-term use: (6) Morbid obesity: (7) Cellulitis: (8) Mild cognitive impairment: (9) COPD (chronic obstructive pulmonary disease): (10) Oxygen dependent: (11) Acute exacerbation of chronic obstructive airways disease: (12) GUS (obstructive sleep apnea): (13) Tobacco abuse, in remission: Plan Acute diastolic CHF Hold off on Bumex today Signs of contraction alkalosis If creatinine keeps getting worse I will use 1 dose of acetazolamide likely on Friday Will place Chavez catheter patient gets hypoxic easily Acute on chronic hypoxia with hypercapnia BiPAP has been improved, will deliver on the day of discharge Likely she will stay here till next week Patient does not want SNF/rehab Currently on 10 L high flow nasal cannula Continue Mucomyst, DuoNeb No signs of PE Atelectasis She is using her valve and incentive spirometer DuoNeb Cellulitis: No signs of progression I will switch her to p.o. doxycycline Please discontinue Afebrile She is not on bedrest however considering significant hypoxia and minimal ambulation I would ask her to get out of bed to chair or maybe move inside the room with long nasal cannula Continue PT DVT prophylaxis covered with anticoagulating agent Mechanical valve, A-fib: Subtherapeutic start Coumadin dose Attestations Medical Necessity Statement*: Continue medical management Diagnoses Primary hypertension I10 Hypertension type: primary hypertension H/O mechanical aortic valve replacement Z95.2 Venous stasis I87.8 Dyslipidemia E78.5 Anticoagulant long-term use Z79.01 Morbid obesity E66.01 Cellulitis L03.90 Mild cognitive impairment G31.84 COPD (chronic obstructive pulmonary disease) J44.9 Oxygen dependent Z99.81 Acute exacerbation of chronic obstructive airways disease J44.1 GUS (obstructive sleep apnea) G47.33 Tobacco abuse, in remission F17.201
[2024-02-13] MEDS: warfarin 1 mg Tablet 3 MG PO (14:59)
[2024-02-14] VITALS (16 sets, daily range): BP systolic 137–165; BP diastolic 69–78; PULSE 71–91; RESP 16–20; TEMP 36.4–36.8; O2SAT 90–98
[2024-02-14] MEDS: bumetanide 0.25 mg/mL SDV 10 mL 2 MG IVP (01:37)
[2024-02-14] MEDS: vancomycin 1,500 MG/300 ML PIGGYBACK 200 MG IV ×2 (01:45→20:55)
[2024-02-14 05:31] LABS: Basophils % 0.1 %; Hematocrit 34.9 % (36-47); Lymphocytes # 0.7 10^3/uL (0.8-4.8); Lymphocytes % 6.7 %; Mean Corpuscular HGB Conc 30.4 g/dL (30-55); Mean Corpuscular Hemoglobin 26.9 pg (27-33); Mean Corpuscular Volume 88.6 fl (85-98); Monocytes # 0.3 10^3/uL (0.2-0.9); Monocytes % 3.2 %; Neutrophils # 9.58 10^3/uL (1.8-7.7); Neutrophils % 89.7 %; Nucleated Red Blood Cells % 0 %; Platelet Count 307 10^3/cmm (157-399); Red Blood Count 3.94 10^6/uL (3.85-5.65); Red Cell Distribution Width 15.7 % (12.1-15.1); White Blood Count 10.67 10^3/uL (3.29-11.43)
[2024-02-14 05:45] LABS: INR 3.25 (0.8-1.2)
[2024-02-14 05:55] LABS: Anion Gap 9.7 (5-19); Blood Urea Nitrogen 18 mg/dL (8-23); Calcium 8.2 mg/dL (8.5-10.5); Chloride 94 mmol/L (98-107); Creatinine Clr Calc Pharmacy 148.7232; Glomerular Filtration Rate 101.3 mL/min (90-130); Glucose 166 mg/dL (65-115); Osmolality Calculated 302 mOsm/kg (285-295); Potassium 3.7 mmol/L (3.5-5.1); Sodium 143 mmol/L (136-145)
[2024-02-14 06:12] LABS: Carbon Dioxide 43 mmol/L (22-29)
[2024-02-14] MEDS: acetylcysteine 200 mg/mL SDV 4 mL INHALATION ×4 (07:43→21:54)
[2024-02-14] MEDS: ipratropium-albuterol 3 mL Neb INHALATION ×4 (07:43→21:54)
[2024-02-14] MEDS: duloxetine 60 mg Capsule PO ×2 (09:19→17:10)
[2024-02-14] MEDS: lisinopril 20 mg Tablet PO (09:19)
[2024-02-14] MEDS: roflumilast 500 mcg Tablet 250 MCG PO (09:19)
[2024-02-14] MEDS: aspirin 81 mg EC Tablet PO (09:19)
[2024-02-14] MEDS: benzonatate 100 mg Capsule 200 MG PO ×3 (09:22→20:55)
[2024-02-14] MEDS: atorvastatin 40 mg Tablet 20 MG PO (09:22)
[2024-02-14] MEDS: gabapentin 300 mg Capsule PO ×3 (09:23→20:55)
[2024-02-14] MEDS: amlodipine 5 mg Tablet PO (09:23)
[2024-02-14] MEDS: methylPREDNISolone sod succ 125 mg/2 mL INJ 60 MG IVP (09:24)
[2024-02-14] MEDS: collagenase oint 30 gm 1 APPLIC TOPICAL (09:34)
[2024-02-14] MEDS: nystatin powder 15 gm Btl 1 APPLIC TOPICAL ×2 (09:34→17:10)
[2024-02-14] MEDS: bacitracin ointment Pkt 1 EACH TOPICAL (09:35)
--- NOTE | 2024-02-14 10:09 | P.PN_ITS ---
Subjective 2 Subjective: Patient endorsing feeling better Sitting in a recliner Contraction alkalosis hold Bumex for today Ox requirement has improved she is up to 5 L at home uses 3 L Oxygen, and has improved from 10 L Still using BiPAP overnight consistent with incentive spirometer 3 times a day Using flutter valve Plan to discharge likely on Friday with BiPAP after new home oxygen hours Wheezing improved Vitals/I&O/Wt Last Vital Signs Temp 97.6 F 02/14/24 08:00 Pulse 78 02/14/24 08:00 Resp 18 02/14/24 08:00 BP 137/71 02/14/24 08:00 Pulse Ox 92 02/14/24 08:00 O2 Del Method Nasal Cannula 02/14/24 08:00 O2 Flow Rate 6 02/14/24 07:59 FiO2 55 02/14/24 04:00 02/13/24 02/14/24 02/14/24 22:59 06:59 14:59 Intake Total 420 / 960 680 / 680 Output Total 1400 / 2775 1500 / 4275 Balance -1400 / -2235 -1080 / -3315 680 / 680 Weight last 48 hrs Weight 153.314 kg Physical Exam 2 Narrative: Continue medical management Signs of contraction alkalosis Skin wrinkling noted No secondary cellulitis improving Pleasant cooperative man sitting in a chair Currently on 5 L No significant wheezing today A-fib without RVR Urinary Catheter Management: Chavez: Cath Placed During This Visit: yes Reason for Continuing Indwelling Catheter: Other Urinary Catheter Date of Insertion: 02/13/24 Urinary Catheter Time of Insertion: 11:00 Data 02/14/24 05:23 02/14/24 05:23 Micro: Microbiology 02/08/24 16:06 Blood Culture - Final Blood NO GROWTH AFTER 5 DAYS 02/08/24 16:01 Blood Culture - Final Blood NO GROWTH AFTER 5 DAYS A&P Assessment and plan (1) H/O mechanical aortic valve replacement: (2) Venous stasis: (3) Anticoagulant long-term use: (4) Morbid obesity: (5) Cellulitis: (6) COPD (chronic obstructive pulmonary disease): (7) Mild cognitive impairment: (8) Acute respiratory failure with hypoxia and hypercapnia: (9) GUS (obstructive sleep apnea): Plan Acute hypoxic hypercarbic respiratory failure Improved with BiPAP Will arrange BiPAP on Friday to discharge home Also, has improved up to 5 L She will need new home oxygen evaluation on Friday Cellulitis: Improving Daily dressing change Contraction alkalosis hold Bumex, part of the reason bicarb is in compensation to chronic hypercapnia but should be on 40 today bicarb is 43 Diastolic CHF: Holding Bumex for today MRSA pneumonia: Continue IV vancomycin until day of discharge Full code Supratherapeutic INR, holding Coumadin dose mechanical valve with A-fib Cardiac consistent carb diet Attestations 2 Medical Necessity Statement*: Continue medical management Diagnoses H/O mechanical aortic valve replacement Z95.2 Venous stasis I87.8 Anticoagulant long-term use Z79.01 Morbid obesity E66.01 Cellulitis L03.90 COPD (chronic obstructive pulmonary disease) J44.9 Mild cognitive impairment G31.84 Acute respiratory failure with hypoxia and hypercapnia J96.01; J96.02 GUS (obstructive sleep apnea) G47.33
--- NOTE | 2024-02-14 16:45 | PC.NURSE ---
hematuria noted earlier this afternoon.dr pate notified.arita irrigated with sterile water until clear (120 cc).no further hematuria noted .
[2024-02-14 19:29] LABS: Vancomycin Trough 10.9 ug/mL (10-15)
[2024-02-15] VITALS (17 sets, daily range): BP systolic 126–148; BP diastolic 65–84; PULSE 70–87; RESP 12–22; TEMP 36.2–37; O2SAT 87–100
[2024-02-15 04:44] LABS: Hematocrit 35.4 % (36-47); Lymphocytes # 1.3 10^3/uL (0.8-4.8); Lymphocytes % 11.6 %; Mean Corpuscular HGB Conc 30.2 g/dL (30-55); Mean Corpuscular Hemoglobin 26.3 pg (27-33); Monocytes # 0.7 10^3/uL (0.2-0.9); Monocytes % 6.2 %; Neutrophils # 9.06 10^3/uL (1.8-7.7); Neutrophils % 81.8 %; Nucleated Red Blood Cells % 0 %; Platelet Count 311 10^3/cmm (157-399); Red Blood Count 4.07 10^6/uL (3.85-5.65); Red Cell Distribution Width 15.6 % (12.1-15.1); White Blood Count 11.07 10^3/uL (3.29-11.43)
[2024-02-15 04:56] LABS: INR 3.34 (0.8-1.2)
[2024-02-15 05:03] LABS: Anion Gap 10.3 (5-19); Blood Urea Nitrogen 21 mg/dL (8-23); Calcium 8.6 mg/dL (8.5-10.5); Carbon Dioxide 40 mmol/L (22-29); Chloride 97 mmol/L (98-107); Creatinine Clr Calc Pharmacy 176.9643; Glucose 131 mg/dL (65-115); Osmolality Calculated 303 mOsm/kg (285-295); Potassium 3.3 mmol/L (3.5-5.1); Sodium 144 mmol/L (136-145)
[2024-02-15] MEDS: acetylcysteine 200 mg/mL SDV 4 mL INHALATION ×3 (07:39→20:44)
[2024-02-15] MEDS: ipratropium-albuterol 3 mL Neb INHALATION ×3 (07:39→20:44)
[2024-02-15] MEDS: benzonatate 100 mg Capsule 200 MG PO ×3 (09:17→20:36)
[2024-02-15] MEDS: amlodipine 5 mg Tablet PO (09:17)
[2024-02-15] MEDS: atorvastatin 40 mg Tablet 20 MG PO (09:17)
[2024-02-15] MEDS: duloxetine 60 mg Capsule PO ×2 (09:17→17:45)
[2024-02-15] MEDS: gabapentin 300 mg Capsule PO ×3 (09:17→20:36)
[2024-02-15] MEDS: lisinopril 20 mg Tablet PO (09:17)
[2024-02-15] MEDS: roflumilast 500 mcg Tablet 250 MCG PO (09:18)
[2024-02-15] MEDS: aspirin 81 mg EC Tablet PO (09:18)
[2024-02-15] MEDS: vancomycin 1,500 MG/300 ML PIGGYBACK 200 MG IV (12:19)
[2024-02-15] MEDS: collagenase oint 30 gm 1 APPLIC TOPICAL (12:20)
[2024-02-15] MEDS: bacitracin ointment Pkt 1 EACH TOPICAL (12:20)
[2024-02-15] MEDS: nystatin powder 15 gm Btl 1 APPLIC TOPICAL ×2 (12:20→17:45)
--- NOTE | 2024-02-15 13:44 | P.PN_ITS ---
Subjective 2 Subjective: seen today no acute event overnight Vitals/I&O/Wt Last Vital Signs Temp 97.9 F 02/15/24 11:36 Pulse 84 02/15/24 11:36 Resp 18 02/15/24 11:36 BP 148/67 02/15/24 11:36 Pulse Ox 93 02/15/24 11:36 O2 Del Method Nasal Cannula 02/15/24 11:36 O2 Flow Rate 8 02/15/24 07:53 FiO2 55 02/15/24 02:43 02/14/24 02/15/24 02/15/24 22:59 06:59 14:59 Intake Total 540 / 1580 240 / 1820 960 / 960 Output Total 250 / 800 750 / 1550 Balance 290 / 780 -510 / 270 960 / 960 Weight last 48 hrs Weight 151.273 kg Physical Exam 2 Narrative: Continue medical management Skin wrinkling noted No secondary cellulitis improving Pleasant cooperative man sitting in a chair Currently on 6 L No significant wheezing today A-fib without RVR Urinary Catheter Management: Chavez: Cath Placed During This Visit: yes Reason for Continuing Indwelling Catheter: Accurate Measurement of Urinary Output in Critically Ill Patients Urinary Catheter Date of Insertion: 02/13/24 Urinary Catheter Time of Insertion: 11:00 Data 02/15/24 04:28 02/15/24 04:28 A&P Assessment and plan (1) H/O mechanical aortic valve replacement: (2) Venous stasis: (3) Anticoagulant long-term use: (4) Morbid obesity: (5) Cellulitis: (6) COPD (chronic obstructive pulmonary disease): (7) Mild cognitive impairment: (8) Acute respiratory failure with hypoxia and hypercapnia: (9) GUS (obstructive sleep apnea): Plan Acute hypoxic hypercarbic respiratory failure Improved with BiPAP Will arrange BiPAP on Friday to discharge home Also, has improved up to 5 L She will need new home oxygen evaluation on Friday Cellulitis: Improving Daily dressing change Contraction alkalosis hold Bumex, part of the reason bicarb is in compensation to chronic hypercapnia Diastolic CHF: Holding Bumex for today MRSA pneumonia: Continue IV vancomycin until day of discharge Full code Supratherapeutic INR, holding Coumadin dose mechanical valve with A-fib Cardiac consistent carb diet Todays plan: 02/14 - no changes to above plan today continue current mgmt - will replete potassium. order K 40 x1 Attestations 2 Medical Necessity Statement*: Continue medical management Coding Level of Care Code Acute Code for Chg Fwd Diagnoses H/O mechanical aortic valve replacement Z95.2 Venous stasis I87.8 Anticoagulant long-term use Z79.01 Morbid obesity E66.01 Cellulitis L03.90 COPD (chronic obstructive pulmonary disease) J44.9 Mild cognitive impairment G31.84 Acute respiratory failure with hypoxia and hypercapnia J96.01; J96.02 GUS (obstructive sleep apnea) G47.33
[2024-02-15] MEDS: potassium chloride ER 20 mEq Tablet 40 MEQ PO (14:00)
[2024-02-16] VITALS (20 sets, daily range): BP systolic 118–167; BP diastolic 58–86; PULSE 72–90; RESP 16–30; TEMP 36.4–37.2; O2SAT 83–98
[2024-02-16] MEDS: vancomycin 1,500 MG/300 ML PIGGYBACK 200 MG IV ×2 (00:28→12:43)
[2024-02-16 03:34] LABS: INR 2.76 (0.8-1.2)
[2024-02-16 03:48] LABS: Anion Gap 8.8 (5-19); Blood Urea Nitrogen 20 mg/dL (8-23); Calcium 8.8 mg/dL (8.5-10.5); Chloride 97 mmol/L (98-107); Creatinine Clr Calc Pharmacy 147.4702; Glomerular Filtration Rate 101.3 mL/min (90-130); Glucose 106 mg/dL (65-115); Osmolality Calculated 299 mOsm/kg (285-295); Potassium 3.8 mmol/L (3.5-5.1); Sodium 143 mmol/L (136-145)
[2024-02-16 03:53] LABS: Carbon Dioxide 41 mmol/L (22-29)
[2024-02-16] MEDS: amlodipine 5 mg Tablet PO (08:41)
[2024-02-16] MEDS: aspirin 81 mg EC Tablet PO (08:41)
[2024-02-16] MEDS: benzonatate 100 mg Capsule 200 MG PO ×3 (08:41→21:38)
[2024-02-16] MEDS: duloxetine 60 mg Capsule PO ×2 (08:42→17:49)
[2024-02-16] MEDS: atorvastatin 40 mg Tablet 20 MG PO (08:42)
[2024-02-16] MEDS: ipratropium-albuterol 3 mL Neb INHALATION ×4 (08:44→19:37)
[2024-02-16] MEDS: lisinopril 20 mg Tablet PO (08:45)
[2024-02-16] MEDS: roflumilast 500 mcg Tablet 250 MCG PO (08:45)
[2024-02-16] MEDS: gabapentin 300 mg Capsule PO ×3 (08:45→21:39)
[2024-02-16] MEDS: collagenase oint 30 gm 1 APPLIC TOPICAL (10:57)
[2024-02-16] MEDS: bacitracin ointment Pkt 1 EACH TOPICAL (10:57)
[2024-02-16] MEDS: nystatin powder 15 gm Btl 1 APPLIC TOPICAL (10:58)
[2024-02-16] MEDS: acetylcysteine 200 mg/mL SDV 4 mL INHALATION ×3 (11:19→19:37)
--- NOTE | 2024-02-16 12:30 | P.PN_ITS ---
Subjective 2 Subjective: Patient is awake and alert However she gets hypoxic she was requiring 14 L on ambulation, not ready to be discharged Will repeat CT chest Will ask for LTAC screening This is her eighth day in the hospital Hypoxia has not resolved significantly INR is 2.7 therapeutic range Patient was stating that her BiPAP mask which is at the bedside has a very small mask and she is wanting a full face Vitals/I&O/Wt Last Vital Signs Temp 97.6 F 02/16/24 08:00 Pulse 80 02/16/24 11:26 Resp 18 02/16/24 11:16 BP 150/81 02/16/24 08:40 Pulse Ox 96 02/16/24 11:18 O2 Del Method BiPAP 02/16/24 11:16 O2 Flow Rate 15 02/16/24 09:54 FiO2 50 02/16/24 11:18 02/15/24 02/16/24 02/16/24 22:59 06:59 14:59 Intake Total 480 / 1740 300 / 2040 240 / 240 Output Total 700 / 700 900 / 1600 Balance -220 / 1040 -600 / 440 240 / 240 Weight last 48 hrs Weight 151.318 kg Weight 151.273 kg Physical Exam 2 Narrative: No worsening of fluid overload on clinical exam Patient sitting in a chair We had to put on BiPAP because she became hypoxic when we turn down her oxygen from 15 L no active chest pain Awake and alert GCS 15 Low extremity edema no worsening Cellulitis erythema improving Urinary Catheter Management: Chavez: Cath Placed During This Visit: yes Reason for Continuing Indwelling Catheter: Other Urinary Catheter Date of Insertion: 02/13/24 Urinary Catheter Time of Insertion: 11:00 Data 02/15/24 04:28 02/16/24 03:10 A&P Assessment and plan (1) HTN (hypertension): Qualifiers: Hypertension type: primary hypertension Qualified Code(s): I10 - Essential (primary) hypertension (2) H/O mechanical aortic valve replacement: (3) Venous stasis: (4) Anticoagulant long-term use: (5) Morbid obesity: (6) Cellulitis: (7) Mild cognitive impairment: (8) COPD (chronic obstructive pulmonary disease): (9) Oxygen dependent: (10) Acute exacerbation of chronic obstructive airways disease: (11) Acute respiratory failure with hypoxia and hypercapnia: (12) GUS (obstructive sleep apnea): (13) Tobacco abuse, in remission: Plan Acute diastolic CHF No active worsening of fluid overload Start low-dose diuretics again Compensated bicarb should be around 40 Acute hypoxic hypercarbic respite failure Patient intermittently requires BiPAP Fraction requirement has worsened up to 15 L Gets hypoxic easily No sign of PE Repeat CT scan of her chest again MRSA pneumonia Continue vancomycin Afebrile Significant hypoxia Continue Mucomyst along DuoNeb She still has wheezing Cellulitis: Improving Currently on vancomycin Therapeutic INR continue Coumadin dosing as per pharmacy Full code Cardiac consistent carb diet I have asked telehealth case manager to look for LTAC screening because patient is taking time to recover and hypoxia has not improved significantly Attestations 2 Medical Necessity Statement*: Continue medical management Diagnoses Primary hypertension I10 Hypertension type: primary hypertension H/O mechanical aortic valve replacement Z95.2 Venous stasis I87.8 Anticoagulant long-term use Z79.01 Morbid obesity E66.01 Cellulitis L03.90 Mild cognitive impairment G31.84 COPD (chronic obstructive pulmonary disease) J44.9 Oxygen dependent Z99.81 Acute exacerbation of chronic obstructive airways disease J44.1 Acute respiratory failure with hypoxia and hypercapnia J96.01; J96.02 GUS (obstructive sleep apnea) G47.33 Tobacco abuse, in remission F17.201
--- NOTE | 2024-02-16 12:43 | CTR_ITS ---
PROCEDURE INFORMATION: Exam: CTA Chest With Contrast Exam date and time: 02/16/2024 4:46 PM Age: 63 years old Clinical indication: Other: Hypoxia; Additional info: Worsening hypoxia TECHNIQUE: Imaging protocol: Computed tomographic angiography of the chest with contrast. Exam focused on the arteries. 3D rendering (Not supervised by radiologist): MIP and/or 3D reconstructed images were created by the technologist. Radiation optimization: All CT scans at this facility use at least one of these dose optimization techniques: automated exposure control; mA and/or kV adjustment per patient size (includes targeted exams where dose is matched to clinical indication); or iterative reconstruction. Contrast material: OMNI 350; Contrast volume: 85 ml; Contrast route: INTRAVENOUS (IV); COMPARISON: CT angio chest PE protcl [id number] 02/11/2024 9:32 PM RADIATION DOSE METRICS: Total DLP (mGy-cm): 572.03 FINDINGS: Pulmonary arteries: No central pulmonary emboli. Limited evaluation of the segmental and subsegmental branches due to suboptimal opacification and artifact. Aorta: Moderate aortic atherosclerotic calcification. Dense calcification of the ostia of the celiac trunk and SMA, otherwise appearing patent in the field of view. Lungs: Moderate multifocal ground-glass opacities in both lungs most consistent with pulmonary edema or less likely atypical pneumonia/ARDS, significantly increased from 02/01/2024. [id number] bandlike atelectasis/perifissural thickening in the right upper lobe. Moderate left lower lobe atelectasis versus consolidation with air bronchograms has increased. Increased mucoid retention in the left mainstem, lobar in lower lobe airways. Pleural spaces: Trace bilateral pleural effusions, left greater than right again noted. Heart: Mild cardiomegaly. Moderate mitral annular calcification and aortic valve prosthesis again noted. Lymph nodes: Mild paratracheal adenopathy up to 2.2 cm again noted, likely reactive. Mild bilateral hilar adenopathy and prevascular adenopathy. Gallbladder and biliary ducts: Small calcified gallstone again noted. Spleen: Stable mild splenomegaly. Kidneys and ureters: 1.9 cm cyst in the upper pole of the left kidney. Partially imaged known left renal stone with adjacent caliceal dilatation. Bones/joints: Multiple sternotomy wires again noted. Moderate multilevel thoracic spondylosis. Soft tissues: Mild hepatomegaly with mild lobulated cirrhotic morphology. Other findings: Mild emphysema. CT/CT angio chest PE protcl [id number] IMPRESSION: 1. No central pulmonary embolism. Limited evaluation of the segmental and subsegmental branches. 2. Moderate multifocal bilateral ground-glass opacities significantly increased from 02/11/2020 , likely due to interstitial pulmonary edema versus atypical multifocal pneumonia/ARDS. Mild cardiomegaly. 3. Increased mucoid retention in the left mainstem bronchus and lower lobe bronchi, . Increased left lower lobe opacity due to atelectasis or pneumonic consolidation . 4. Features of early hepatic cirrhosis, cholelithiasis, left renal stone and other findings detailed above. COMMENTS: Consistent with the [employer]'s Incidental Findings Committee white paper (J Am Jemal Radiol 2018): Any incidental renal lesion less than 1 cm or classified as too small to characterize, or any incidental cystic renal lesion characterized as simple-appearing, is likely benign. No follow-up imaging is recommended for these lesions per consensus recommendations based on imaging criteria.
[2024-02-16] MEDS: warfarin 1 mg Tablet 3 MG PO (13:19)
--- NOTE | 2024-02-16 13:27 | PC.NURSE ---
Patient is having some anxiety about her breathing. She doesn't want to wear her bipap since it is uncomfortable. She does have a hard time maintaining her O2 stats at 88% or above on nasal cannula. Provider is undated and said okay to remove bipap and use 15L of nasal cannula.
--- NOTE | 2024-02-16 14:57 | PC.SOCIAL ---
IMM Updated Updated pt on IMM. No questions voiced. Provided pt a copy. Initialed, dated, & timed copy in chart.
[2024-02-16] MEDS: iohexol 350 mg/mL 500 mL Btl (per mL) IV (16:53)
[2024-02-17] VITALS (14 sets, daily range): BP systolic 95–155; BP diastolic 65–78; PULSE 73–93; RESP 16–24; TEMP 36.5–37; O2SAT 85–94; BMI 54.8
[2024-02-17] MEDS: vancomycin 1,500 MG/300 ML PIGGYBACK 200 MG IV ×2 (00:03→11:49)
[2024-02-17 06:12] LABS: Basophils % 0.1 %; Eosinophils # 0.4 10^3/uL (0.0-0.8); Eosinophils % 4.3 %; Hematocrit 35.3 % (36-47); Lymphocytes # 1.4 10^3/uL (0.8-4.8); Lymphocytes % 15.8 %; Mean Corpuscular HGB Conc 29.7 g/dL (30-55); Mean Corpuscular Hemoglobin 26.1 pg (27-33); Mean Corpuscular Volume 87.8 fl (85-98); Mean Platelet Volume 8.6 fL (7.4-10.4); Monocytes # 0.6 10^3/uL (0.2-0.9); Monocytes % 6.5 %; Neutrophils # 6.43 10^3/uL (1.8-7.7); Nucleated Red Blood Cells % 0 %; Platelet Count 251 10^3/cmm (157-399); Red Blood Count 4.02 10^6/uL (3.85-5.65); Red Cell Distribution Width 15.8 % (12.1-15.1); White Blood Count 8.81 10^3/uL (3.29-11.43)
[2024-02-17 06:25] LABS: INR 2.42 (0.8-1.2)
[2024-02-17 06:35] LABS: Anion Gap 11.6 (5-19); Blood Urea Nitrogen 12 mg/dL (8-23); Calcium 8.8 mg/dL (8.5-10.5); Carbon Dioxide 37 mmol/L (22-29); Chloride 98 mmol/L (98-107); Creatinine Clr Calc Pharmacy 179.1986; Glucose 115 mg/dL (65-115); Osmolality Calculated 297 mOsm/kg (285-295); Potassium 3.6 mmol/L (3.5-5.1); Sodium 143 mmol/L (136-145)
[2024-02-17] MEDS: acetylcysteine 200 mg/mL SDV 4 mL INHALATION ×4 (08:44→21:21)
[2024-02-17] MEDS: ipratropium-albuterol 3 mL Neb INHALATION ×4 (08:44→21:21)
--- NOTE | 2024-02-17 09:37 | P.PN_ITS ---
Subjective 2 Subjective: Worsening bilateral infiltrates consistent with ARDS # pneumonia Currently on 15 L FiO2 Saturating 90% Requires intermittent BiPAP She may need LTAC She took a shower today Currently on 15 L of oxygen sitting in a chair Chavez catheter in place Bumex 2 mg every 8 hours INR is therapeutic Contraction alkalosis signs improving No signs of PE Vitals/I&O/Wt Last Vital Signs Temp 97.7 F 02/17/24 07:26 Pulse 79 02/17/24 08:30 Resp 24 H 02/17/24 08:30 BP 155/78 02/17/24 07:26 Pulse Ox 90 02/17/24 08:30 O2 Del Method High Flow Nasal Cannula 02/17/24 08:30 O2 Flow Rate 15 02/17/24 08:30 FiO2 60 02/17/24 04:00 02/16/24 02/17/24 02/17/24 22:59 06:59 14:59 Intake Total 660 / 1140 300 / 1440 Output Total 900 / 900 400 / 1300 Balance -240 / 240 -100 / 140 Weight last 48 hrs Weight 154.306 kg Weight 151.318 kg Physical Exam 2 Narrative: Morbidly obese female Sitting in a recliner Currently on 15 L high flow nasal cannula Saturating 90% Gets hypoxic on minimal exertion Chavez catheter in place Heart failure features present Nontender abdomen Pleasant cooperative Nonfocal neuroexam Urinary Catheter Management: Chavez: Cath Placed During This Visit: yes Reason for Continuing Indwelling Catheter: Accurate Measurement of Urinary Output in Critically Ill Patients Urinary Catheter Date of Insertion: 02/13/24 Urinary Catheter Time of Insertion: 11:00 Data 02/17/24 05:55 02/17/24 05:55 A&P Assessment and plan (1) Major depressive disorder, recurrent, severe with psychotic symptoms: (2) HTN (hypertension): Qualifiers: Hypertension type: primary hypertension Qualified Code(s): I10 - Essential (primary) hypertension (3) H/O mechanical aortic valve replacement: (4) Venous stasis: (5) Dyslipidemia: (6) Anticoagulant long-term use: (7) Morbid obesity: (8) Cellulitis: (9) Mild cognitive impairment: (10) ARDS (adult respiratory distress syndrome): (11) COPD (chronic obstructive pulmonary disease): (12) Oxygen dependent: (13) Acute exacerbation of chronic obstructive airways disease: (14) Acute respiratory failure with hypoxia and hypercapnia: (15) GUS (obstructive sleep apnea): (16) Tobacco abuse, in remission: Plan MRSA pneumonia related ARDS Current FiO2 15 L Saturating 90% We have gotten her BiPAP approval, BiPAP machine is at the bedside She is not ready to be discharged She may need LTAC Patient is physically very challenged she gets hypoxic and short of breath easily on taking a few steps while going to the bathroom She is refusing longterm placement but agreeable for LTAC Diastolic CHF exacerbation Start Bumex Contraction alkalosis signs improved Cellulitis: Improving Daily Santyl dressing change Mechanical valve, A-fib without RVR Therapeutic INR Appreciate pharmacy Coumadin dosing Hypertension: Continue antihypertensive regimen Full code Fluid restricted cardiac consistent carb diet Chavez catheter in place Attestations 2 Medical Necessity Statement*: Continue medical management Diagnoses Major depressive disorder, recurrent, severe with psychotic symptoms F33.3 Primary hypertension I10 Hypertension type: primary hypertension H/O mechanical aortic valve replacement Z95.2 Venous stasis I87.8 Dyslipidemia E78.5 Anticoagulant long-term use Z79.01 Morbid obesity E66.01 Cellulitis L03.90 Mild cognitive impairment G31.84 ARDS (adult respiratory distress syndrome) J80 COPD (chronic obstructive pulmonary disease) J44.9 Oxygen dependent Z99.81 Acute exacerbation of chronic obstructive airways disease J44.1 Acute respiratory failure with hypoxia and hypercapnia J96.01; J96.02 GUS (obstructive sleep apnea) G47.33 Tobacco abuse, in remission F17.201
[2024-02-17] MEDS: gabapentin 300 mg Capsule PO ×3 (09:55→21:52)
[2024-02-17] MEDS: duloxetine 60 mg Capsule PO ×2 (09:55→18:00)
[2024-02-17] MEDS: atorvastatin 40 mg Tablet 20 MG PO (09:55)
[2024-02-17] MEDS: benzonatate 100 mg Capsule 200 MG PO ×3 (09:55→21:51)
[2024-02-17] MEDS: aspirin 81 mg EC Tablet PO (09:57)
[2024-02-17] MEDS: lisinopril 20 mg Tablet PO (09:57)
[2024-02-17] MEDS: roflumilast 500 mcg Tablet 250 MCG PO (09:58)
[2024-02-17] MEDS: amlodipine 5 mg Tablet PO (09:58)
[2024-02-17] MEDS: methylPREDNISolone sod succ 40 mg/mL INJ IVP ×2 (10:07→21:52)
[2024-02-17] MEDS: bumetanide 0.25 mg/mL SDV 10 mL 2 MG IVP ×2 (10:07→16:58)
[2024-02-17 11:17] LABS: Vancomycin Trough 16.9 ug/mL (10-15)
[2024-02-17] MEDS: warfarin 1 mg Tablet 3 MG PO (14:59)
--- NOTE | 2024-02-17 17:16 | PC.NURSE ---
Dressing change to right lower leg. Current dressing was removed, dressing was dressing dry with no drainage. New dressing of ABD and kerlix was applied.
[2024-02-18] VITALS (19 sets, daily range): BP systolic 136–157; BP diastolic 62–86; PULSE 67–92; RESP 16–21; TEMP 36.3–36.9; O2SAT 89–95
[2024-02-18] MEDS: vancomycin 1,500 MG/300 ML PIGGYBACK 200 MG IV ×2 (00:58→14:27)
[2024-02-18] MEDS: bumetanide 0.25 mg/mL SDV 10 mL 2 MG IVP (00:59)
[2024-02-18 07:10] LABS: Basophils % 0.1 %; Mean Corpuscular HGB Conc 30.5 g/dL (30-55); Mean Corpuscular Hemoglobin 26.4 pg (27-33); Mean Corpuscular Volume 86.7 fl (85-98); Mean Platelet Volume 9.2 fL (7.4-10.4); Monocytes # 0.3 10^3/uL (0.2-0.9); Monocytes % 1.8 %; Neutrophils # 12.63 10^3/uL (1.8-7.7); Neutrophils % 90.7 %; Nucleated Red Blood Cells % 0 %; Platelet Count 312 10^3/cmm (157-399); Red Cell Distribution Width 15.1 % (12.1-15.1); White Blood Count 13.92 10^3/uL (3.29-11.43)
[2024-02-18 07:31] LABS: INR 1.99 (0.8-1.2)
[2024-02-18 07:33] LABS: Blood Urea Nitrogen 13 mg/dL (8-23); Calcium 9.2 mg/dL (8.5-10.5); Chloride 92 mmol/L (98-107); Creatinine Clr Calc Pharmacy 174.9598; Glucose 164 mg/dL (65-115); Osmolality Calculated 300 mOsm/kg (285-295); Sodium 143 mmol/L (136-145)
[2024-02-18 07:45] LABS: Anion Gap 11.9 (5-19); Carbon Dioxide 43 mmol/L (22-29); Potassium 3.9 mmol/L (3.5-5.1)
[2024-02-18] MEDS: ipratropium-albuterol 3 mL Neb INHALATION ×4 (07:56→20:01)
[2024-02-18] MEDS: acetylcysteine 200 mg/mL SDV 4 mL INHALATION ×3 (07:56→20:02)
[2024-02-18] MEDS: methylPREDNISolone sod succ 40 mg/mL INJ IVP ×2 (09:24→21:00)
[2024-02-18] MEDS: roflumilast 500 mcg Tablet 250 MCG PO (09:25)
[2024-02-18] MEDS: benzonatate 100 mg Capsule 200 MG PO ×3 (09:26→20:01)
[2024-02-18] MEDS: duloxetine 60 mg Capsule PO ×2 (09:27→17:25)
[2024-02-18] MEDS: lisinopril 20 mg Tablet PO (09:27)
[2024-02-18] MEDS: acetaZOLAMIDE 250 mg Tablet PO (09:27)
[2024-02-18] MEDS: gabapentin 300 mg Capsule PO ×3 (09:27→20:01)
[2024-02-18] MEDS: amlodipine 5 mg Tablet PO (09:28)
[2024-02-18] MEDS: atorvastatin 40 mg Tablet 20 MG PO (09:28)
[2024-02-18] MEDS: aspirin 81 mg EC Tablet PO (09:28)
[2024-02-18] MEDS: bacitracin ointment Pkt 1 EACH TOPICAL (09:28)
--- NOTE | 2024-02-18 10:39 | P.PN_ITS ---
Subjective 2 Subjective: Contraction alkalosis concern Stop Bumex give her 1 dose of acetazolamide Currently on 15 L nasal cannula high flow Patient gets short of breath on minimal activity taking short sentences to complete her thoughts Spoke with the daughter this morning she is agreeable with LTAC screening Vitals/I&O/Wt Last Vital Signs Temp 97.4 F L 02/18/24 08:25 Pulse 91 02/18/24 08:25 Resp 18 02/18/24 08:25 BP 157/70 02/18/24 08:25 Pulse Ox 92 02/18/24 08:25 O2 Del Method Nasal Cannula 02/18/24 08:25 O2 Flow Rate 15 02/18/24 08:12 FiO2 60 02/18/24 05:20 02/17/24 02/18/24 02/18/24 22:59 06:59 14:59 Intake Total 780 / 1500 420 / 1920 360 / 360 Output Total 5000 / 6800 2000 / 8800 400 / 400 Balance -4220 / -5300 -1580 / -6880 -40 / -40 Weight last 48 hrs Weight 148.552 kg Weight 154.306 kg Physical Exam 2 Narrative: Morbid obese Currently on 15 L high flow nasal cannula Saturating 87 to 88% Requires BiPAP overnight Lower extremity edema improving Improving cellulitis Pleasant cooperative Variable S1-S2 Distended abdomen Variable S1-S2 Hemodynamically stable Sitting in a recliner Urinary Catheter Management: Chavez: Cath Placed During This Visit: yes Reason for Continuing Indwelling Catheter: Other Urinary Catheter Date of Insertion: 02/13/24 Urinary Catheter Time of Insertion: 11:00 Data 02/18/24 06:55 02/18/24 06:55 Micro: Microbiology 02/17/24 17:30 Sputum Culture - Preliminary Sputum - Expectorated Sputum A&P Assessment and plan (1) Major depressive disorder, recurrent, severe with psychotic symptoms: (2) HTN (hypertension): Qualifiers: Hypertension type: primary hypertension Qualified Code(s): I10 - Essential (primary) hypertension (3) H/O mechanical aortic valve replacement: (4) Venous stasis: (5) Dyslipidemia: (6) Anticoagulant long-term use: (7) Morbid obesity: (8) Cellulitis: (9) Mild cognitive impairment: (10) ARDS (adult respiratory distress syndrome): (11) COPD (chronic obstructive pulmonary disease): (12) Oxygen dependent: (13) Acute exacerbation of chronic obstructive airways disease: (14) Acute respiratory failure with hypoxia and hypercapnia: (15) GUS (obstructive sleep apnea): (16) Tobacco abuse, in remission: Plan MRSA pneumonia related ARDS Current FiO2 15 L Patient is taking time to improve Gets short of breath on minimal activities, short sentences to complete her thoughts Able to get out of bed to sitting in recliner Uses BiPAP overnight I am recommending LTAC/select facility screening BiPAP has been arranged My threshold will stay low to transfer her to ICU in case she gets hypoxic below 86% on ambulation while using 15 L oxygen She is on steroids, Diastolic CHF exacerbation Bumex on hold given acetazolamide for contraction alkalosis Cellulitis: Improving Daily Santyl dressing change Mechanical valve, A-fib without RVR INR subtherapeutic Appreciate pharmacy Coumadin dosing Hypertension: Continue antihypertensive regimen Full code Fluid restricted cardiac consistent carb diet Chavez catheter in place Attestations 2 Medical Necessity Statement*: Continue medical management Diagnoses Major depressive disorder, recurrent, severe with psychotic symptoms F33.3 Primary hypertension I10 Hypertension type: primary hypertension H/O mechanical aortic valve replacement Z95.2 Venous stasis I87.8 Dyslipidemia E78.5 Anticoagulant long-term use Z79.01 Morbid obesity E66.01 Cellulitis L03.90 Mild cognitive impairment G31.84 ARDS (adult respiratory distress syndrome) J80 COPD (chronic obstructive pulmonary disease) J44.9 Oxygen dependent Z99.81 Acute exacerbation of chronic obstructive airways disease J44.1 Acute respiratory failure with hypoxia and hypercapnia J96.01; J96.02 GUS (obstructive sleep apnea) G47.33 Tobacco abuse, in remission F17.201
[2024-02-18 11:40] LABS: Lactate Dehydrogenase 414 U/L (135-214)
[2024-02-18] MEDS: cefepime 2,000 mg SDV 2000 MG IVP ×2 (12:07→23:44)
--- NOTE | 2024-02-18 13:15 | PC.SOCIAL ---
IMM Updated Updated pt on IMM. No questions voiced. Provided pt a copy. Initialed, dated, & timed copy in chart.
[2024-02-18] MEDS: warfarin 1 mg Tablet 3 MG PO (14:28)
[2024-02-18 14:41] LABS: ABG PH Result 7.39 (7.35-7.45); Alveolar-Arterial Oxygen Gradi 2.2 mmHg (5-10); Arterial Blood Gas Hematocrit 38.9 % (37-47); Blood Gas Operator Identificat AMH; Blood Gas Sample Site Brachial, left; Blood Gas Sample Type Arterial; Carboxyhemoglobin 1.6 %THgb (0.4-20.1); HCO3 ABG 38.4 mmol/L (22-26); HGB O2 Sat 86.4 % (95-100); Ionized Calcium Level - ABG 1.2 mmol/L (1.1-1.4); Methemoglobin < 0.0 % (0.4-1.5); Oxygen Device NC; Oxygen Saturation ABG 87.7; PO2 ABG 56.1 mmHg (80.0-100.0); Potassium Level - ABG 3.4 mmol/L (3.5-5.0); Total Hemoglobin 12.7 g/dL (12-16)
[2024-02-18 14:42] LABS: ABG PCO2 63.4 mmHg (35-45)
[2024-02-18] MEDS: DEXTROSE 5% IV ×2 (17:14→22:24)
[2024-02-18] MEDS: SULFAMETHOXAZOLE TRIMETH IV ×2 (17:14→22:24)
[2024-02-18] MEDS: collagenase oint 30 gm 1 APPLIC TOPICAL (17:14)
[2024-02-18] MEDS: nystatin powder 15 gm Btl 1 APPLIC TOPICAL (17:25)
[2024-02-18] MEDS: water for injection-sterile 10 ML 100 ML (23:44)
[2024-02-19] VITALS (128 sets, daily range): BP systolic 81–147; BP diastolic 48–73; PULSE 66–94; RESP 14–30; TEMP 36.4–36.8; O2SAT 70–100
[2024-02-19] MEDS: SULFAMETHOXAZOLE TRIMETH IV ×4 (03:30→22:58)
[2024-02-19] MEDS: DEXTROSE 5% IV ×4 (03:30→22:58)
[2024-02-19 04:17] LABS: Arterial Blood Gas Hematocrit 32.6 % (37-47); Base Excess ABG 7.8 mmol/L (-2.0-2.0); Blood Gas Allen Test Pos; Blood Gas Sample Site Brachial, left; HCO3 ABG 34.1 mmol/L (22-26); Oxygen Device BIPAP
[2024-02-19 05:25] LABS: Eosinophils % 0.1 %; Hematocrit 34.3 % (36-47); Lymphocytes # 0.8 10^3/uL (0.8-4.8); Lymphocytes % 6.2 %; Mean Corpuscular HGB Conc 30.6 g/dL (30-55); Mean Corpuscular Hemoglobin 26.7 pg (27-33); Mean Corpuscular Volume 87.3 fl (85-98); Mean Platelet Volume 9.7 fL (7.4-10.4); Monocytes # 0.2 10^3/uL (0.2-0.9); Monocytes % 1.6 %; Neutrophils # 11.14 10^3/uL (1.8-7.7); Neutrophils % 91.8 %; Nucleated Red Blood Cells % 0 %; Platelet Count 304 10^3/cmm (157-399); Red Blood Count 3.93 10^6/uL (3.85-5.65); Red Cell Distribution Width 15.5 % (12.1-15.1); White Blood Count 12.14 10^3/uL (3.29-11.43)
[2024-02-19 05:41] LABS: INR 2.52 (0.8-1.2)
[2024-02-19 05:58] LABS: Anion Gap 13.9 (5-19); Blood Urea Nitrogen 16 mg/dL (8-23); Calcium 8.6 mg/dL (8.5-10.5); Carbon Dioxide 32 mmol/L (22-29); Chloride 94 mmol/L (98-107); Glomerular Filtration Rate 84.8 mL/min (90-130); Glucose 247 mg/dL (65-115); Osmolality Calculated 291 mOsm/kg (285-295); Potassium 3.9 mmol/L (3.5-5.1); Sodium 136 mmol/L (136-145)
[2024-02-19] MEDS: methylPREDNISolone sod succ 40 mg/mL INJ IVP ×2 (08:26→21:03)
[2024-02-19] MEDS: roflumilast 500 mcg Tablet 250 MCG PO (08:26)
[2024-02-19] MEDS: duloxetine 60 mg Capsule PO ×2 (08:27→18:29)
[2024-02-19] MEDS: benzonatate 100 mg Capsule 200 MG PO ×3 (08:27→21:03)
[2024-02-19] MEDS: amlodipine 5 mg Tablet PO (08:27)
[2024-02-19] MEDS: atorvastatin 40 mg Tablet 20 MG PO (08:27)
[2024-02-19] MEDS: aspirin 81 mg EC Tablet PO (08:27)
[2024-02-19] MEDS: gabapentin 300 mg Capsule PO ×3 (08:28→21:03)
[2024-02-19] MEDS: collagenase oint 30 gm 1 APPLIC TOPICAL (08:29)
[2024-02-19] MEDS: nystatin powder 15 gm Btl 1 APPLIC TOPICAL ×2 (08:29→18:29)
[2024-02-19] MEDS: bacitracin ointment Pkt 1 EACH TOPICAL (08:31)
[2024-02-19] MEDS: ipratropium-albuterol 3 mL Neb INHALATION ×4 (08:35→19:53)
[2024-02-19] MEDS: bumetanide 0.25 mg/mL SDV 10 mL 2 MG IVP ×2 (09:11→16:08)
[2024-02-19] MEDS: potassium chloride ER 20 mEq Tablet 40 MEQ PO (09:12)
--- NOTE | 2024-02-19 10:35 | P.PN_ITS ---
Subjective 2 Subjective: 45 L, 60% oxygen on heated high flow Requires BiPAP overnight Has been started on IV Bactrim LDH above 400 PCP antigen requested Bicarb around 32 Vitals/I&O/Wt Last Vital Signs Temp 97.5 F L 02/19/24 07:20 Pulse 81 02/19/24 08:15 Resp 24 H 02/19/24 08:15 BP 147/71 02/19/24 08:15 Pulse Ox 95 02/19/24 08:15 O2 Del Method Heated High Flow 02/19/24 08:00 O2 Flow Rate 45 02/19/24 08:00 FiO2 60 02/19/24 08:00 02/18/24 02/19/24 02/19/24 22:59 06:59 14:59 Intake Total 966.375 / 6887.306 5007.750 / 2969.125 240 / 240 Output Total 900 / 2100 900 / 3000 Balance 66.375 / -293.625 262.750 / -30.875 240 / 240 Weight last 48 hrs Weight 148.96 kg Weight 148.552 kg Physical Exam 2 Narrative: Patient is on heated high flow Sitting in her bed Currently on heated high flow Bilateral breath sounds with mild rhonchi No active wheezing Extremity edema improving Cellulitis improving Abdomen distended nontender S1, S2 Less anxious today Able to follow commands Nonfocal neuroexam Urinary Catheter Management: Chavez: Cath Placed During This Visit: yes Reason for Continuing Indwelling Catheter: Acute Urinary Retention or Obstruction Urinary Catheter Date of Insertion: 02/13/24 Urinary Catheter Time of Insertion: 11:00 Data 02/19/24 04:37 02/19/24 04:37 Micro: Microbiology 02/17/24 17:30 Sputum Culture - Preliminary Sputum - Expectorated Sputum A&P Assessment and plan (1) Major depressive disorder, recurrent, severe with psychotic symptoms: (2) HTN (hypertension): Qualifiers: Hypertension type: primary hypertension Qualified Code(s): I10 - Essential (primary) hypertension (3) H/O mechanical aortic valve replacement: (4) Venous stasis: (5) Dyslipidemia: (6) Anticoagulant long-term use: (7) Morbid obesity: (8) Cellulitis: (9) Mild cognitive impairment: (10) ARDS (adult respiratory distress syndrome): (11) COPD (chronic obstructive pulmonary disease): (12) Oxygen dependent: (13) Acute exacerbation of chronic obstructive airways disease: (14) Acute respiratory failure with hypoxia and hypercapnia: (15) GUS (obstructive sleep apnea): (16) Tobacco abuse, in remission: Plan MRSA pneumonia related ARDS Severe ARDS P to F ratio below 100 Transferred to ICU 02/17 Started on IV Bactrim PCP antigen beta D glucan tested Afebrile Hemodynamically stable Heated high flow started 02/17 for persistent hypoxia Patient required BiPAP overnight No signs of PE Diastolic CHF exacerbation Restart Bumex patient will get IV Bactrim which 3 bags in 24 hours which will be roughly more than a liter of IV fluids through IV antibiotics only Cellulitis: Improving Daily Santyl dressing change Mechanical valve, A-fib without RVR INR subtherapeutic Appreciate pharmacy Coumadin dosing Judicious Coumadin dosing with use of Bactrim which has drug interaction Full code Fluid restricted cardiac consistent carb diet Chavez catheter in place Attestations 2 Medical Necessity Statement*: Continue ICU management Diagnoses Major depressive disorder, recurrent, severe with psychotic symptoms F33.3 Primary hypertension I10 Hypertension type: primary hypertension H/O mechanical aortic valve replacement Z95.2 Venous stasis I87.8 Dyslipidemia E78.5 Anticoagulant long-term use Z79.01 Morbid obesity E66.01 Cellulitis L03.90 Mild cognitive impairment G31.84 ARDS (adult respiratory distress syndrome) J80 COPD (chronic obstructive pulmonary disease) J44.9 Oxygen dependent Z99.81 Acute exacerbation of chronic obstructive airways disease J44.1 Acute respiratory failure with hypoxia and hypercapnia J96.01; J96.02 GUS (obstructive sleep apnea) G47.33 Tobacco abuse, in remission F17.201
[2024-02-19] MEDS: cefepime 2,000 mg SDV 2000 MG IVP ×2 (11:19→22:50)
[2024-02-19] MEDS: acetylcysteine 200 mg/mL SDV 4 mL INHALATION (11:20)
[2024-02-19 13:32] LABS: ABG PCO2 55.8 mmHg (35-45); Blood Gas Sample Type Arterial; PO2 ABG 63.5 mmHg (80.0-100.0); PO2 FiO2 Ratio Arterial Blood 105
[2024-02-19] MEDS: warfarin 2.5 mg Tablet PO (14:34)
[2024-02-19] MEDS: acetylcysteine 200 mg/mL MDV 10 mL INHALATION ×2 (15:40→19:53)
[2024-02-20] VITALS (20 sets, daily range): BP systolic 106–150; BP diastolic 57–81; PULSE 65–84; RESP 14–22; TEMP 36.9; O2SAT 90–100
[2024-02-20] MEDS: bumetanide 0.25 mg/mL SDV 10 mL 2 MG IVP ×3 (00:56→16:43)
[2024-02-20] MEDS: SULFAMETHOXAZOLE TRIMETH IV (04:42)
[2024-02-20] MEDS: DEXTROSE 5% IV (04:42)
[2024-02-20 05:49] LABS: Basophils % 0.1 %; Hematocrit 37.2 % (36-47); Lymphocytes # 0.7 10^3/uL (0.8-4.8); Lymphocytes % 6.6 %; Mean Corpuscular HGB Conc 31.2 g/dL (30-55); Mean Corpuscular Hemoglobin 26.9 pg (27-33); Mean Corpuscular Volume 86.1 fl (85-98); Mean Platelet Volume 9.1 fL (7.4-10.4); Monocytes # 0.3 10^3/uL (0.2-0.9); Monocytes % 2.5 %; Neutrophils # 9.66 10^3/uL (1.8-7.7); Neutrophils % 90.4 %; Nucleated Red Blood Cells % 0 %; Platelet Count 328 10^3/cmm (157-399); Red Blood Count 4.32 10^6/uL (3.85-5.65); Red Cell Distribution Width 15.8 % (12.1-15.1); White Blood Count 10.68 10^3/uL (3.29-11.43)
[2024-02-20 06:18] LABS: Anion Gap 18.2 (5-19); Blood Urea Nitrogen 25 mg/dL (8-23); C Reactive Protein 12.5 mg/L (0.0-4.9); Calcium 8.8 mg/dL (8.5-10.5); Carbon Dioxide 29 mmol/L (22-29); Chloride 90 mmol/L (98-107); Creatinine Clr Calc Pharmacy 87.4965; Glomerular Filtration Rate 56.2 mL/min (90-130); Glucose 231 mg/dL (65-115); Osmolality Calculated 288 mOsm/kg (285-295); Potassium 4.2 mmol/L (3.5-5.1); Sodium 133 mmol/L (136-145)
[2024-02-20] MEDS: acetylcysteine 200 mg/mL MDV 10 mL INHALATION ×4 (08:19→19:59)
[2024-02-20] MEDS: ipratropium-albuterol 3 mL Neb INHALATION ×4 (08:19→19:59)
--- NOTE | 2024-02-20 09:40 | PC.SOCIAL ---
IMM Update Pg. 2 of IMM updated and reviewed with patient who verbalized understanding. Copy provided.
--- NOTE | 2024-02-20 10:02 | P.PN_ITS ---
Subjective 2 Subjective: Patient is awake and alert Patient endorsing feeling better Currently on heated high flow 40 L, 58% heated high flow Overnight used BiPAP with FiO2 60% Will repeat x-ray today, no fever or leukocytosis, creatinine 1.0 noted with BUN 25 Bactrim dose has been readjusted Monitor sodium closely because Bactrim can cause hyponatremia Continue diuresis Vitals/I&O/Wt Last Vital Signs Temp 98.3 F 02/19/24 20:00 Pulse 73 02/20/24 08:37 Resp 20 H 02/20/24 08:37 BP 131/73 02/20/24 04:00 Pulse Ox 93 02/20/24 08:37 O2 Del Method Heated High Flow 02/20/24 08:00 O2 Flow Rate 40 02/20/24 08:37 FiO2 55 02/20/24 08:37 02/19/24 02/20/24 02/20/24 22:59 06:59 14:59 Intake Total 786.375 / 9891.605 7176.750 / 3145.500 Output Total 1900 / 3875 1200 / 5075 Balance -1113.625 / -2062.250 132.750 / -1929.500 Weight last 48 hrs Weight 148.597 kg Weight 148.96 kg Physical Exam 2 Narrative: Currently on heated high flow Awake and alert GCS 15 Sign of hypervolemia improving Cellulitis improving Distended abdomen Nonfocal neuroexam pleasant cooperative Able to answer simple questions S1, S2 variable Urinary Catheter Management: Chavez: Cath Placed During This Visit: yes Reason for Continuing Indwelling Catheter: Accurate Measurement of Urinary Output in Critically Ill Patients Urinary Catheter Date of Insertion: 02/13/24 Urinary Catheter Time of Insertion: 11:00 Data 02/20/24 05:36 02/20/24 05:36 Micro: Microbiology 02/17/24 17:30 Sputum Culture - Preliminary Sputum - Expectorated Sputum Coag positive Staphylococcus A&P Assessment and plan (1) Major depressive disorder, recurrent, severe with psychotic symptoms: (2) HTN (hypertension): Qualifiers: Hypertension type: primary hypertension Qualified Code(s): I10 - Essential (primary) hypertension (3) H/O mechanical aortic valve replacement: (4) Venous stasis: (5) Dyslipidemia: (6) Anticoagulant long-term use: (7) Morbid obesity: (8) Cellulitis: (9) Mild cognitive impairment: (10) ARDS (adult respiratory distress syndrome): (11) COPD (chronic obstructive pulmonary disease): (12) Oxygen dependent: (13) Acute exacerbation of chronic obstructive airways disease: (14) Acute respiratory failure with hypoxia and hypercapnia: (15) GUS (obstructive sleep apnea): (16) Tobacco abuse, in remission: Plan MRSA pneumonia related ARDS Severe ARDS Currently on heated high flow FiO2 58% 40 L, BiPAP FiO2 60% overnight P to F ratio below 100 Transferred to ICU 02/17 Afebrile, no significant leukocytosis Spoke with the pharmacy to readjust Bactrim dosing Monitor sodium and fluid status on IV Bactrim regimen, cultures negative No signs of PE Continue Mucomyst with chest vest therapy Diastolic CHF exacerbation Restart Bumex patient will get IV Bactrim continue diuresis with IV Bactrim Cellulitis: Improving Daily Santyl dressing change Mechanical valve, A-fib without RVR INR supratherapeutic today Appreciate pharmacy Coumadin dosing Judicious Coumadin dosing with use of Bactrim which has drug interaction Full code Fluid restricted cardiac consistent carb diet Chavez catheter in place Disposition: Recommended LTAC Constipation: Relieved Attestations 2 Medical Necessity Statement*: Continue ICU management Diagnoses Major depressive disorder, recurrent, severe with psychotic symptoms F33.3 Primary hypertension I10 Hypertension type: primary hypertension H/O mechanical aortic valve replacement Z95.2 Venous stasis I87.8 Dyslipidemia E78.5 Anticoagulant long-term use Z79.01 Morbid obesity E66.01 Cellulitis L03.90 Mild cognitive impairment G31.84 ARDS (adult respiratory distress syndrome) J80 COPD (chronic obstructive pulmonary disease) J44.9 Oxygen dependent Z99.81 Acute exacerbation of chronic obstructive airways disease J44.1 Acute respiratory failure with hypoxia and hypercapnia J96.01; J96.02 GUS (obstructive sleep apnea) G47.33 Tobacco abuse, in remission F17.201
[2024-02-20] MEDS: aspirin 81 mg EC Tablet PO (11:12)
[2024-02-20] MEDS: amlodipine 5 mg Tablet PO (11:12)
[2024-02-20] MEDS: bacitracin ointment Pkt 1 EACH TOPICAL (11:12)
[2024-02-20] MEDS: benzonatate 100 mg Capsule 200 MG PO ×3 (11:12→21:45)
[2024-02-20] MEDS: atorvastatin 40 mg Tablet 20 MG PO (11:12)
[2024-02-20] MEDS: gabapentin 300 mg Capsule PO ×3 (11:13→21:44)
[2024-02-20] MEDS: duloxetine 60 mg Capsule PO ×2 (11:13→17:43)
[2024-02-20] MEDS: collagenase oint 30 gm 1 APPLIC TOPICAL (11:13)
[2024-02-20] MEDS: nystatin powder 15 gm Btl 1 APPLIC TOPICAL ×2 (11:13→17:43)
[2024-02-20] MEDS: methylPREDNISolone sod succ 40 mg/mL INJ IVP ×2 (11:14→21:45)
[2024-02-20] MEDS: roflumilast 500 mcg Tablet 250 MCG PO (11:14)
[2024-02-20] MEDS: potassium chloride ER 20 mEq Tablet 40 MEQ PO (11:14)
[2024-02-20] MEDS: cefepime 2,000 mg SDV 2000 MG IVP ×2 (12:32→21:45)
[2024-02-20] MEDS: sulfamethoxazole-trimeth inj 480 MG in dextrose 5 % 500 ML 500 MG IV ×3 (12:45→22:21)
[2024-02-20] MEDS: ondansetron 2 mg/ML SDV 2 mL 4 MG IVP (23:22)
[2024-02-21] VITALS (26 sets, daily range): BP systolic 114–154; BP diastolic 51–81; PULSE 71–84; RESP 17–22; TEMP 36.1–37.1; O2SAT 85–98
[2024-02-21] MEDS: bumetanide 0.25 mg/mL SDV 10 mL 2 MG IVP ×3 (00:40→13:46)
[2024-02-21 03:42] LABS: ABG PCO2 53.2 mmHg (35-45); ABG PH Result 7.41 (7.35-7.45); Arterial Blood Gas Hematocrit 41.9 % (37-47); Base Excess ABG 7.4 mmol/L (-2.0-2.0); Blood Gas Allen Test Pos; Blood Gas Operator Identificat JB; Blood Gas Sample Site Radial, right; Blood Gas Sample Type Arterial; HCO3 ABG 33.7 mmol/L (22-26); Oxygen Device NC; PO2 ABG 77.1 mmHg (80.0-100.0)
[2024-02-21 04:16] LABS: Basophils % 0.1 %; Eosinophils % 0.3 %; Hematocrit 38.6 % (36-47); Lymphocytes # 0.5 10^3/uL (0.8-4.8); Lymphocytes % 4.8 %; Mean Corpuscular HGB Conc 31.6 g/dL (30-55); Mean Corpuscular Hemoglobin 26.4 pg (27-33); Mean Corpuscular Volume 83.5 fl (85-98); Mean Platelet Volume 9.3 fL (7.4-10.4); Monocytes # 0.3 10^3/uL (0.2-0.9); Monocytes % 3.2 %; Neutrophils # 9.02 10^3/uL (1.8-7.7); Neutrophils % 91.2 %; Nucleated Red Blood Cells % 0 %; Platelet Count 409 10^3/cmm (157-399); Red Blood Count 4.62 10^6/uL (3.85-5.65); Red Cell Distribution Width 15.8 % (12.1-15.1)
[2024-02-21 04:33] LABS: INR 4.53 (0.8-1.2)
[2024-02-21 04:36] LABS: Blood Urea Nitrogen 28 mg/dL (8-23); Calcium 9.1 mg/dL (8.5-10.5); Carbon Dioxide 33 mmol/L (22-29); Chloride 86 mmol/L (98-107); Glomerular Filtration Rate 50.3 mL/min (90-130); Glucose 204 mg/dL (65-115); Osmolality Calculated 281 mOsm/kg (285-295); Sodium 130 mmol/L (136-145)
[2024-02-21] MEDS: sulfamethoxazole-trimeth inj 480 MG in dextrose 5 % 500 ML 500 MG IV ×2 (04:39→11:37)
--- NOTE | 2024-02-21 04:47 | PC.NURSE ---
Pt repeatedly refused to allow nurse to replace cardiac leads. Pt also repeatedly refused to allow BP to be taken. Pt has become increasingly agitated and stated, I know you all are talking about me out there. Are you playing tricks on me? This nurse reassured pt that staff was not talking about her.
[2024-02-21] MEDS: LORazepam 2 mg/mL INJ 1 mL 0.25 MG IVP (05:54)
--- NOTE | 2024-02-21 07:00 | XRR_ITS ---
PROCEDURE INFORMATION: Exam: XR Chest Exam date and time: 02/21/2024 7:53 AM Age: 63 years old Clinical indication: Device placement; Ett placement (vent status); Additional info: [facility] TECHNIQUE: Imaging protocol: Radiologic exam of the chest. Views: 1 view. COMPARISON: CT angio chest PE protcl [id number] 02/16/2024 4:46 PM FINDINGS: Lungs: Right mid lung zone atelectasis. No consolidation. Pleural spaces: Unremarkable. No pleural effusion. No pneumothorax. Heart/Mediastinum: There is cardiomegaly. Post aortic valve replacement. Bones/joints: Mild degenerative the right acromioclavicular joint. Post sternotomy. XR/XR chest 1V portable [id number] IMPRESSION: No acute cardiopulmonary process.
[2024-02-21] MEDS: acetylcysteine 200 mg/mL MDV 10 mL INHALATION (08:11)
[2024-02-21] MEDS: ipratropium-albuterol 3 mL Neb INHALATION ×4 (08:11→20:51)
[2024-02-21] MEDS: methylPREDNISolone sod succ 40 mg/mL INJ IVP ×2 (08:43→21:50)
[2024-02-21] MEDS: potassium chloride ER 20 mEq Tablet 40 MEQ PO (08:47)
[2024-02-21] MEDS: gabapentin 300 mg Capsule PO ×3 (08:47→20:13)
[2024-02-21] MEDS: duloxetine 60 mg Capsule PO ×2 (08:47→17:36)
[2024-02-21] MEDS: aspirin 81 mg EC Tablet PO (08:47)
[2024-02-21] MEDS: atorvastatin 40 mg Tablet 20 MG PO (08:47)
[2024-02-21] MEDS: roflumilast 500 mcg Tablet 250 MCG PO (08:47)
[2024-02-21] MEDS: amlodipine 5 mg Tablet PO (08:48)
[2024-02-21] MEDS: bacitracin ointment Pkt 1 EACH TOPICAL (08:48)
[2024-02-21] MEDS: benzonatate 100 mg Capsule 200 MG PO ×3 (08:48→20:13)
[2024-02-21] MEDS: collagenase oint 30 gm 1 APPLIC TOPICAL (08:50)
[2024-02-21] MEDS: nystatin powder 15 gm Btl 1 APPLIC TOPICAL ×2 (08:50→17:36)
[2024-02-21] MEDS: ondansetron 2 mg/ML SDV 2 mL 4 MG IVP (08:55)
[2024-02-21] MEDS: sodium chloride 1 gm Tablet 2 GM PO ×3 (10:26→20:13)
[2024-02-21] MEDS: cefepime 2,000 MG in sodium chloride 0.9% (plus) 50 ML 100 MG XX (10:56)
--- NOTE | 2024-02-21 12:11 | P.PN_ITS ---
Subjective 2 Subjective: Spoke with inpatient pharmacy to change the dose of Bactrim because patient is getting hyponatremic I will add salt tablets, adequate urine output Decrease Bumex to every 12 hours Discontinue cefepime Can transfer out of ICU Patient is on 6 L high flow nasal cannula today off heated high flow Vitals/I&O/Wt Last Vital Signs Temp 98.4 F 02/20/24 16:00 Pulse 77 02/21/24 11:15 Resp 18 02/21/24 11:15 BP 133/68 02/21/24 10:00 Pulse Ox 97 02/21/24 11:15 O2 Del Method High Flow Nasal Cannula 02/21/24 11:15 O2 Flow Rate 6 02/21/24 11:15 FiO2 60 02/20/24 23:50 02/20/24 02/21/24 02/21/24 22:59 06:59 14:59 Intake Total 530 / 1060 1060 / 2120 150 / 150 Output Total 500 / 1600 2300 / 3900 Balance 30 / -540 -1240 / -1780 150 / 150 Weight last 48 hrs Weight 147.327 kg Weight 148.597 kg Physical Exam 2 Narrative: Pleasant cooperative Clinically does not look fluid overloaded Patient endorsing feeling better Currently on 6 L . Blood pressure stable Distended abdomen nontender Pleasant cooperative Lower extremity cellulitis improving S1, S2 Urinary Catheter Management: Chavez: Cath Placed During This Visit: yes Reason for Continuing Indwelling Catheter: Accurate Measurement of Urinary Output in Critically Ill Patients Urinary Catheter Date of Insertion: 02/13/24 Urinary Catheter Time of Insertion: 11:00 Data 02/21/24 04:05 02/21/24 04:05 Micro: Microbiology 02/17/24 17:30 Sputum Culture - Final Sputum - Expectorated Sputum Methicillin Resis Staph Aureus A&P Assessment and plan (1) H/O mechanical aortic valve replacement: (2) Venous stasis: (3) Anticoagulant long-term use: (4) Morbid obesity: (5) Cellulitis: (6) Mild cognitive impairment: (7) COPD (chronic obstructive pulmonary disease): (8) Oxygen dependent: (9) Acute exacerbation of chronic obstructive airways disease: (10) Acute respiratory failure with hypoxia and hypercapnia: (11) ARDS (adult respiratory distress syndrome): (12) GUS (obstructive sleep apnea): (13) Hyponatremia: (14) Major depressive disorder, recurrent, severe with psychotic symptoms: (15) HTN (hypertension): Qualifiers: Hypertension type: primary hypertension Qualified Code(s): I10 - Essential (primary) hypertension (16) Dyslipidemia: (17) Tobacco abuse, in remission: Plan MRSA pneumonia related ARDS Severe ARDS heated high flow FiO2 58% 40 L, BiPAP FiO2 60% ov P to F ratio below 100 Transferred to ICU 02/17 We can transfer [facility] to [facility] currently she is on 6 L nasal cannula 02/20 Heated high flow discontinued 02/20 No signs of PE Discontinue Mucomyst Diastolic CHF exacerbation Restart Bumex every 12 hours Bactrim induced hyponatremia I have asked pharmacy to change the dose to tablet form every 8 hours Cellulitis: Improving Daily Santyl dressing change Mechanical valve, A-fib without RVR INR supratherapeutic today Appreciate pharmacy Coumadin dosing Judicious Coumadin dosing with use of Bactrim which has drug interaction Full code Fluid restricted cardiac consistent carb diet Chavez catheter in place Disposition: Screening for LTAC, Attestations 2 Medical Necessity Statement*: Transfer out of ICU today 02/20 Diagnoses H/O mechanical aortic valve replacement Z95.2 Venous stasis I87.8 Anticoagulant long-term use Z79.01 Morbid obesity E66.01 Cellulitis L03.90 Mild cognitive impairment G31.84 COPD (chronic obstructive pulmonary disease) J44.9 Oxygen dependent Z99.81 Acute exacerbation of chronic obstructive airways disease J44.1 Acute respiratory failure with hypoxia and hypercapnia J96.01; J96.02 ARDS (adult respiratory distress syndrome) J80 GUS (obstructive sleep apnea) G47.33 Hyponatremia E87.1 Major depressive disorder, recurrent, severe with psychotic symptoms F33.3 Primary hypertension I10 Hypertension type: primary hypertension Dyslipidemia E78.5 Tobacco abuse, in remission F17.201
--- NOTE | 2024-02-21 17:09 | PC.NURSE ---
report given and transfered to 2nd floor
[2024-02-21] MEDS: sulfamethoxazole-trimeth DS 160-800 mg Tablet 2 TAB PO (20:13)
[2024-02-22] VITALS (13 sets, daily range): BP systolic 120–160; BP diastolic 64–85; PULSE 74–101; RESP 15–21; TEMP 36.4–37.2; O2SAT 85–96
[2024-02-22] MEDS: bumetanide 0.25 mg/mL SDV 10 mL 2 MG IVP ×2 (00:53→13:15)
[2024-02-22 03:17] LABS: ABG PCO2 52.1 mmHg (35-45); ABG PH Result 7.42 (7.35-7.45); Arterial Blood Gas Hematocrit 42.2 % (37-47); Base Excess ABG 7.4 mmol/L (-2.0-2.0); Blood Gas Allen Test Pos; Blood Gas Operator Identificat JB; Blood Gas Sample Site Radial, right; Blood Gas Sample Type Arterial; HCO3 ABG 33.5 mmol/L (22-26); Oxygen Device NC; PO2 ABG 45.7 mmHg (80.0-100.0)
[2024-02-22 04:42] LABS: ABG PCO2 55.9 mmHg (35-45); ABG PH Result 7.42 (7.35-7.45); Alveolar-Arterial Oxygen Gradi 26.7 mmHg (5-10); Arterial Blood Gas Hematocrit 35.3 % (37-47); Base Excess ABG 9.6 mmol/L (-2.0-2.0); Blood Gas Allen Test Pos; Blood Gas Operator Identificat JB; Blood Gas Sample Site Radial, right; Blood Gas Sample Type Arterial; Carboxyhemoglobin 1.5 %THgb (0.4-20.1); HCO3 ABG 35.9 mmol/L (22-26); Ionized Calcium Level - ABG 1.2 mmol/L (1.1-1.4); Methemoglobin 0.7 % (0.4-1.5); Oxygen Device BIPAP; Oxygen Saturation ABG > 100.0; PO2 FiO2 Ratio Arterial Blood 255; Potassium Level - ABG 4.9 mmol/L (3.5-5.0); Total Hemoglobin 11.5 g/dL (12-16)
[2024-02-22] MEDS: sulfamethoxazole-trimeth DS 160-800 mg Tablet 2 TAB PO (04:56)
[2024-02-22 05:40] LABS: Basophils % 0.1 %; Hematocrit 39.8 % (36-47); Lymphocytes # 0.6 10^3/uL (0.8-4.8); Lymphocytes % 5.2 %; Mean Corpuscular HGB Conc 32.2 g/dL (30-55); Mean Corpuscular Hemoglobin 26.4 pg (27-33); Mean Corpuscular Volume 82.1 fl (85-98); Mean Platelet Volume 9.5 fL (7.4-10.4); Monocytes # 0.6 10^3/uL (0.2-0.9); Monocytes % 4.9 %; Neutrophils # 10.19 10^3/uL (1.8-7.7); Neutrophils % 89.4 %; Nucleated Red Blood Cells % 0 %; Platelet Count 441 10^3/cmm (157-399); Red Blood Count 4.85 10^6/uL (3.85-5.65); Red Cell Distribution Width 15.9 % (12.1-15.1); White Blood Count 11.39 10^3/uL (3.29-11.43)
[2024-02-22 05:58] LABS: Blood Urea Nitrogen 40 mg/dL (8-23); Calcium 9.4 mg/dL (8.5-10.5); Carbon Dioxide 34 mmol/L (22-29); Chloride 87 mmol/L (98-107); Glomerular Filtration Rate 50.3 mL/min (90-130); Glucose 186 mg/dL (65-115); Osmolality Calculated 291 mOsm/kg (285-295); Sodium 133 mmol/L (136-145)
[2024-02-22] MEDS: ipratropium-albuterol 3 mL Neb INHALATION ×4 (07:34→20:03)
[2024-02-22] MEDS: bacitracin ointment Pkt 1 EACH TOPICAL (09:40)
[2024-02-22] MEDS: methylPREDNISolone sod succ 40 mg/mL INJ IVP ×2 (09:40→21:37)
[2024-02-22] MEDS: atorvastatin 40 mg Tablet 20 MG PO ×2 (09:41→09:42)
[2024-02-22] MEDS: roflumilast 500 mcg Tablet 250 MCG PO (09:41)
[2024-02-22] MEDS: gabapentin 300 mg Capsule PO ×3 (09:42→21:37)
[2024-02-22] MEDS: benzonatate 100 mg Capsule 200 MG PO ×3 (09:42→21:37)
[2024-02-22] MEDS: potassium chloride ER 20 mEq Tablet 40 MEQ PO (09:43)
[2024-02-22] MEDS: duloxetine 60 mg Capsule PO ×2 (09:43→18:13)
[2024-02-22] MEDS: amlodipine 5 mg Tablet PO (09:43)
[2024-02-22] MEDS: aspirin 81 mg EC Tablet PO (09:43)
[2024-02-22] MEDS: vancomycin 1,500 MG/300 ML PIGGYBACK 200 MG IV ×2 (09:54→21:38)
[2024-02-22] MEDS: nystatin powder 15 gm Btl 1 APPLIC TOPICAL ×2 (09:54→18:13)
--- NOTE | 2024-02-22 10:28 | P.PN_ITS ---
Subjective 2 Subjective: Patient took off BiPAP last night desaturated to 70s however it was quickly addressed and her hypoxia improved, no need to transfer her to ICU this morning her ABG is stable, patient endorsing feeling better I have discontinued Bactrim switched to vancomycin again PCP antigen still pending This morning patient is on 6 L nasal cannula high flow Vitals/I&O/Wt Last Vital Signs Temp 97.6 F 02/22/24 07:39 Pulse 82 02/22/24 07:40 Resp 20 H 02/22/24 07:40 BP 147/71 02/22/24 07:39 Pulse Ox 85 L 02/22/24 07:40 O2 Del Method Room Air 02/22/24 07:40 O2 Flow Rate 7 02/21/24 20:52 FiO2 60 02/22/24 03:42 02/21/24 02/22/24 02/22/24 22:59 06:59 14:59 Intake Total 530 / 680 360 / 360 Output Total 2000 / 4000 950 / 4950 Balance -1470 / -3320 -950 / -4270 360 / 360 Weight last 48 hrs Weight 142.059 kg Weight 147.327 kg Physical Exam 2 Narrative: Sign of fluid load improving Lower extremity edema improving Lower extremity cellulitis improving as well Distended abdomen Nontender Pleasant cooperative S1, S2 Currently on 6 L Bilateral breath sounds with very mild wheeze and rhonchi Urinary Catheter Management: Chavez: Cath Placed During This Visit: yes Reason for Continuing Indwelling Catheter: Acute Urinary Retention or Obstruction Urinary Catheter Date of Insertion: 02/13/24 Urinary Catheter Time of Insertion: 11:00 Data 02/22/24 05:14 02/22/24 05:14 A&P Assessment and plan (1) H/O mechanical aortic valve replacement: (2) Venous stasis: (3) Anticoagulant long-term use: (4) Morbid obesity: (5) Cellulitis: (6) Mild cognitive impairment: (7) COPD (chronic obstructive pulmonary disease): (8) Oxygen dependent: (9) Acute exacerbation of chronic obstructive airways disease: (10) Acute respiratory failure with hypoxia and hypercapnia: (11) ARDS (adult respiratory distress syndrome): (12) GUS (obstructive sleep apnea): (13) Hyponatremia: (14) Major depressive disorder, recurrent, severe with psychotic symptoms: (15) HTN (hypertension): Qualifiers: Hypertension type: primary hypertension Qualified Code(s): I10 - Essential (primary) hypertension (16) Dyslipidemia: (17) Tobacco abuse, in remission: Plan 63-year female who presented from home with chief complaint of worsening of shortness of breath, she was diagnosed with diastolic CHF exacerbation she was put on IV diuresis at baseline her bicarb seems to be around 35-40 because of her chronic hypercapnia, I was able to successfully get her BiPAP approved, her hypoxia worsened she required ICU for closer monitoring on heated high flow which we were able to transition down to high flow nasal cannula up to 6 L, she is BiPAP overnight, she is being diuresed, CTA rule out PE it showed worsening bilateral infiltrates consistent with ARDS, MRSA pneumonia, I decided to use PCP pneumonia antibiotic IV Bactrim for about 3 days which made her hyponatremic and more fluid overloaded despite use of diuresis, decision was made to switch her back to vancomycin on 02/21, currently she is on 6 L in the daytime and uses BiPAP overnight, her plan is to get her screened for LTAC if she gets hypoxic easily on minimal activity and ambulation. Rt Lower extremity cellulitis has improved. Daughter has been updated MRSA pneumonia related ARDS Severe ARDS Patient required ICU days to transition her from heated high flow to high flow nasal cannula She remained on heated high flow for about 2 days Transferred to ICU 02/17 Transfer out of ICU 02/20 Heated high flow discontinued 02/20 No signs of PE Discontinue Mucomyst no signs of mucous plugging worsening Chest vest physiotherapy and Mucomyst on hold for now Repeat x-ray has not shown any worsening Continue Bumex and IV steroids Change IV Bactrim back to vancomycin today 02/21 to avoid worsening of hyponatremia, volume overload and CRISTINE, Diastolic CHF exacerbation She was initially admitted to ICU as well spent 2 days before transition to MedSurg Currently doing well on Bumex Patient is getting diuresed aggressively Signs of fluid load improving Skin wrinkling is evident No signs of PE Bactrim induced hyponatremia IV Bactrim discontinued switch her back to vancomycin The reason I choose IV Bactrim was to cover PCP pneumonia along MRSA because of her worsening hypoxia and ARDS however decision was made to switch back to vancomycin because of her worsening hyponatremia, CRISTINE, hypervolemia, she does not have typical cystic appearance on CT scan my suspicion for PCP pneumonia is low Other reason I have decided to change Bactrim to vancomycin as severe drug to drug interaction with Coumadin rt leg Cellulitis: Improving Daily Santyl dressing change Mechanical valve, A-fib without RVR INR supratherapeutic Appreciate pharmacy Coumadin dosing Full code Fluid restricted cardiac consistent carb diet Chavez catheter in place Disposition: Screening for LTAC, if does not get approval for LTAC she will need local senior care if oxygen requirement stays below 6 L BiPAP has been improved Attestations 2 Medical Necessity Statement*: Continue medical management Diagnoses H/O mechanical aortic valve replacement Z95.2 Venous stasis I87.8 Anticoagulant long-term use Z79.01 Morbid obesity E66.01 Cellulitis L03.90 Mild cognitive impairment G31.84 COPD (chronic obstructive pulmonary disease) J44.9 Oxygen dependent Z99.81 Acute exacerbation of chronic obstructive airways disease J44.1 Acute respiratory failure with hypoxia and hypercapnia J96.01; J96.02 ARDS (adult respiratory distress syndrome) J80 GUS (obstructive sleep apnea) G47.33 Hyponatremia E87.1 Major depressive disorder, recurrent, severe with psychotic symptoms F33.3 Primary hypertension I10 Hypertension type: primary hypertension Dyslipidemia E78.5 Tobacco abuse, in remission F17.201
--- NOTE | 2024-02-22 18:49 | PC.NURSE ---
This nurse heard the patient yell I need help and went to see the patient. Patient was found on the floor in front of her chair on her bottom. Patient states nothing was hurt and inspected no visible injuries. Vitals obtained. Physician and family notified of fall. Helped patient up to the bed and call light in reach. Bed alarm set.
[2024-02-22 21:50] LABS: ABG PCO2 50.7 mmHg (35-45); ABG PH Result 7.41 (7.35-7.45); Arterial Blood Gas Hematocrit 40.1 % (37-47); Blood Gas Allen Test Pos; Blood Gas Operator Identificat CL; Blood Gas Sample Site Radial, right; Blood Gas Sample Type Arterial; HCO3 ABG 31.9 mmol/L (22-26); Oxygen Device NC; PO2 ABG 68.7 mmHg (80.0-100.0)
--- NOTE | 2024-02-22 22:22 | PC.NURSE ---
Patient has been seeing a little boy in her room. This nurse assessed orientation and patient was able to tell her name and where she was. Patient's oxygen saturations are 90-93 on 5L. She has been trying to crawl out of bed and removing her cannula from her nose. Saturations are 79-84 when she takes her cannula off. Educated patient about leaving her oxygen on and redirecting her behaviors. Physician was notified and gave this nurse an order for a STAT ABG. Patient call light in reach, rails up x3, bed alarm set.
[2024-02-23] VITALS (47 sets, daily range): BP systolic 105–164; BP diastolic 62–117; PULSE 67–95; RESP 13–21; TEMP 36.3–36.6; O2SAT 90–98; BMI 49.8
--- NOTE | 2024-02-23 00:35 | PC.NURSE ---
pt transfer of care this nurse rcvd report from [facility] and helped transport pt and bi-pap to icu room. pt alert at this time. assessment, vitals, and bi-[a[ replaced upon arrival.
--- NOTE | 2024-02-23 00:55 | PC.NURSE ---
pt transfer of care pt is noted to have multiple bruises skin tears and rashes on her body.
[2024-02-23] MEDS: OLANZapine 10 mg VIAL 2.5 MG IM (01:26)
[2024-02-23] MEDS: water for injection-sterile 10 ML (02:07)
[2024-02-23] MEDS: dexmedeTOMIDine 0.9 % NaCL 400 MCG/100 ML PREMIX IV (02:33)
--- NOTE | 2024-02-23 04:14 | PC.NURSE ---
pt precedex pt was actively trying to get out of bed, pulling off her bi-pap. notified physician. order given for zyprexa. zyprexa given. approx 40 minutes later pt still actively pulling off b-pap and trying to get out of bed. order obtained for precedex. given according to order.
[2024-02-23 04:19] LABS: Anion Gap 15.2 (5-19); Blood Urea Nitrogen 54 mg/dL (8-23); Calcium 9.1 mg/dL (8.5-10.5); Carbon Dioxide 30 mmol/L (22-29); Chloride 91 mmol/L (98-107); Creatinine Clr Calc Pharmacy 70.9069; Glomerular Filtration Rate 45.5 mL/min (90-130); Glucose 237 mg/dL (65-115); Osmolality Calculated 294 mOsm/kg (285-295); Potassium 5.2 mmol/L (3.5-5.1); Sodium 131 mmol/L (136-145)
[2024-02-23 04:29] LABS: INR 3.68 (0.8-1.2)
[2024-02-23 05:29] LABS: ABG PH Result 7.35 (7.35-7.45); Arterial Blood Gas Hematocrit 33.4 % (37-47); Base Excess ABG 6.6 mmol/L (-2.0-2.0); Blood Gas Allen Test Pos; Blood Gas Operator Identificat JB; Blood Gas Sample Site Radial, right; Blood Gas Sample Type Arterial; HCO3 ABG 33.7 mmol/L (22-26); Oxygen Device BIPAP; PO2 FiO2 Ratio Arterial Blood 231
--- NOTE | 2024-02-23 07:16 | PC.NURSE ---
Patient's daughter contacted by this nurse and notified of transfer to ICU.
[2024-02-23] MEDS: ipratropium-albuterol 3 mL Neb INHALATION ×4 (07:20→19:45)
[2024-02-23] MEDS: methylPREDNISolone sod succ 40 mg/mL INJ IVP ×2 (09:02→21:05)
[2024-02-23] MEDS: vancomycin 1,500 MG/300 ML PIGGYBACK 200 MG IV ×2 (09:04→21:04)
[2024-02-23] MEDS: bacitracin ointment Pkt 1 EACH TOPICAL (09:11)
[2024-02-23] MEDS: amlodipine 5 mg Tablet PO (09:26)
[2024-02-23] MEDS: atorvastatin 40 mg Tablet 20 MG PO (09:26)
[2024-02-23] MEDS: gabapentin 300 mg Capsule PO ×3 (09:26→21:04)
[2024-02-23] MEDS: duloxetine 60 mg Capsule PO ×2 (09:26→18:17)
[2024-02-23] MEDS: benzonatate 100 mg Capsule 200 MG PO ×3 (09:26→21:04)
[2024-02-23] MEDS: potassium chloride ER 20 mEq Tablet 40 MEQ PO (09:26)
[2024-02-23] MEDS: roflumilast 500 mcg Tablet 250 MCG PO (09:26)
[2024-02-23] MEDS: aspirin 81 mg EC Tablet PO (09:26)
[2024-02-23] MEDS: nystatin powder 15 gm Btl 1 APPLIC TOPICAL ×2 (10:52→18:17)
[2024-02-23] MEDS: collagenase oint 30 gm 1 APPLIC TOPICAL (10:52)
--- NOTE | 2024-02-23 12:50 | PC.SOCIAL ---
IMM Updated. Updated pt on IMM. No questions voiced. Provided pt a copy. Initialed, dated, & timed copy in chart.
[2024-02-23] MEDS: bumetanide 0.25 mg/mL SDV 10 mL 2 MG IVP (13:11)
[2024-02-23] MEDS: cefepime 2,000 mg SDV 2000 MG IVP (15:37)
[2024-02-23] MEDS: levoFLOXacin 500 mg Tablet 750 MG PO (15:37)
[2024-02-23] MEDS: water for injection-sterile 10 ML 100 ML (15:38)
--- NOTE | 2024-02-23 15:44 | P.PN_ITS ---
Subjective 2 Subjective: no new complaints today. States that she would not like to go to shelter or rehab she just wants to go home with her and son. States that she has been in a shelter before and she did not like it there. Therefore she would like to go home. Creatinine trending up to 1.2 today. Patient had an ABG drawn this morning which showed hypercapnia with CO2 up to 61, pH maintained at 7.35. Interim development of mild hyperkalemia Medications: Reviewed: Yes Vitals/I&O/Wt Last Vital Signs Temp 97.4 F L 02/23/24 06:00 Pulse 84 02/23/24 15:36 Resp 18 02/23/24 15:36 BP 105/90 02/23/24 13:30 Pulse Ox 92 02/23/24 15:36 O2 Del Method High Flow Nasal Cannula 02/23/24 15:36 O2 Flow Rate 6 02/23/24 15:36 FiO2 45 02/23/24 12:30 02/23/24 02/23/24 02/23/24 06:59 14:59 22:59 Intake Total 308.520 / 1208.520 848.030 / 848.030 Output Total 1500 / 3350 Balance -1191.480 / -2141.480 848.030 / 848.030 Weight last 48 hrs Weight 140 kg Weight 142.059 kg Physical Exam 2 Narrative: General: Chronically ill-appearing lady, currently has head of bed elevated. Currently on 6 L/min having come off of BiPAP earlier this morning. HEENT: PERRLA, pupils bilaterally equal and reactive, pallors not present Chest: Normal vesicular breath sounds, no added sounds, equal good air entry bilaterally CVS: S1-S2 regular, no murmurs, no tachycardia, no gallops, no rubs Abdomen: Soft, nontender, no organomegaly, bowel sounds present Neuro: No focal deficits, no facial deformity, AO x3, power 5/5 in all limbs Extremities: No current lower extremity pitting edema. Urinary Catheter Management: Chavez: Cath Placed During This Visit: yes Reason for Continuing Indwelling Catheter: Accurate Measurement of Urinary Output in Critically Ill Patients Urinary Catheter Date of Insertion: 02/13/24 Urinary Catheter Time of Insertion: 11:00 Data 02/22/24 05:14 02/23/24 03:13 A&P Assessment and plan (1) H/O mechanical aortic valve replacement: (2) Venous stasis: (3) Anticoagulant long-term use: (4) Morbid obesity: (5) Cellulitis: (6) Mild cognitive impairment: (7) COPD (chronic obstructive pulmonary disease): (8) Oxygen dependent: (9) Acute exacerbation of chronic obstructive airways disease: (10) Acute respiratory failure with hypoxia and hypercapnia: (11) ARDS (adult respiratory distress syndrome): (12) GUS (obstructive sleep apnea): (13) Hyponatremia: (14) Major depressive disorder, recurrent, severe with psychotic symptoms: (15) HTN (hypertension): Qualifiers: Hypertension type: primary hypertension Qualified Code(s): I10 - Essential (primary) hypertension (16) Dyslipidemia: (17) Tobacco abuse, in remission: Plan 63-year female who presented from home with chief complaint of worsening of shortness of breath, she was diagnosed with diastolic CHF exacerbation she was put on IV diuresis at baseline her bicarb seems to be around 35-40 because of her chronic hypercapnia, I was able to successfully get her BiPAP approved, her hypoxia worsened she required ICU for closer monitoring on heated high flow which we were able to transition down to high flow nasal cannula up to 6 L, she is BiPAP overnight, she is being diuresed, CTA rule out PE it showed worsening bilateral infiltrates consistent with ARDS, MRSA pneumonia, I decided to use PCP pneumonia antibiotic IV Bactrim for about 3 days which made her hyponatremic and more fluid overloaded despite use of diuresis, decision was made to switch her back to vancomycin on 02/21, currently she is on 6 L in the daytime and uses BiPAP overnight, her plan is to get her screened for LTAC if she gets hypoxic easily on minimal activity and ambulation. Rt Lower extremity cellulitis has improved. Daughter has been updated MRSA pneumonia related ARDS Severe ARDS Patient required ICU days to transition her from heated high flow to high flow nasal cannula She remained on heated high flow for about 2 days Transferred to ICU 02/17 Transfer out of ICU 02/20 Heated high flow discontinued 02/20 No signs of PE Discontinue Mucomyst no signs of mucous plugging worsening Chest vest physiotherapy and Mucomyst on hold for now Repeat x-ray has not shown any worsening Continue Bumex and IV steroids Change IV Bactrim back to vancomycin today 02/21 to avoid worsening of hyponatremia, volume overload and CRISTINE, Diastolic CHF exacerbation She was initially admitted to ICU as well spent 2 days before transition to [facility] Currently doing well on Bumex Patient is getting diuresed aggressively Signs of fluid load improving Skin wrinkling is evident No signs of PE Bactrim induced hyponatremia IV Bactrim discontinued switch her back to vancomycin The reason I choose IV Bactrim was to cover PCP pneumonia along MRSA because of her worsening hypoxia and ARDS however decision was made to switch back to vancomycin because of her worsening hyponatremia, CRISTINE, hypervolemia, she does not have typical cystic appearance on CT scan my suspicion for PCP pneumonia is low Other reason I have decided to change Bactrim to vancomycin as severe drug to drug interaction with Coumadin rt leg Cellulitis: Improving Daily Santyl dressing change Mechanical valve, A-fib without RVR INR supratherapeutic Appreciate pharmacy Coumadin dosing Full code Fluid restricted cardiac consistent carb diet Chavez catheter in place Disposition: Screening for LTAC, if does not get approval for LTAC she will need local shelter if oxygen requirement stays below 6 L BiPAP has been improved Plan for today: February 23, 2024. Chart reviewed in detail. Bilateral pneumonia, likely related to MRSA. Per daughters history, patient has had multiple bouts of pneumonia recently for which she has received short courses of antibiotics and steroids. She is on prednisone 5 mg daily chronically. Currently patient is on treatment with vancomycin based on sputum cultures revealing MRSA. Will place her back additionally on cefepime 2 g IV every 12 hours. Per review of chart, thus far patient has had 1 dose of ceftriaxone on on admission and then IV cefepime between the third through the sixth. Would maintain beta-lactam coverage to cover for the most common culprits of community-acquired pneumonia in addition to MRSA. Additionally add atypical coverage with levofloxacin 750 mg p.o. daily. Check urine Legionella and bacterial antigens. Previously also received presumptive treatment for PCP pneumonia. Screen for pneumocystis pneumonia with serum LDH and serum Fungitell. Previously ordered Fungitell has been sent from expectorated sputum,(this is not a bronchoscopic specimen) which would be unhelpful in screening for pneumocystis pneumonia. Pending pneumocystis PCR from sputum. Given bilateral infiltrates concern for potential aspiration additionally. Will order speech therapy assessment. Check respiratory viral panel. Continue supplemental 02 and intermittent Bipap during the day Attestations 2 Medical Necessity Statement*: Add cefepime and levofloxacin as mentioned above. Awaiting pneumocystis PCR.Continue iv steroids Coding Level of Care Code Acute Code for Chg Fwd High MDM includes number and complexity of problems actively addressed during encounter, amount and/or complexity of data reviewed/ordered and described risk of complication, morbidity or mortality of management as documented Diagnoses H/O mechanical aortic valve replacement Z95.2 Venous stasis I87.8 Anticoagulant long-term use Z79.01 Morbid obesity E66.01 Cellulitis L03.90 Mild cognitive impairment G31.84 COPD (chronic obstructive pulmonary disease) J44.9 Oxygen dependent Z99.81 Acute exacerbation of chronic obstructive airways disease J44.1 Acute respiratory failure with hypoxia and hypercapnia J96.01; J96.02 ARDS (adult respiratory distress syndrome) J80 GUS (obstructive sleep apnea) G47.33 Hyponatremia E87.1 Major depressive disorder, recurrent, severe with psychotic symptoms F33.3 Primary hypertension I10 Hypertension type: primary hypertension Dyslipidemia E78.5 Tobacco abuse, in remission F17.201
[2024-02-23 19:33] LABS: Adenovirus Not Detected (NOT DETECT); Chlamydia Pneumoniae Not Detected (NOT DETECT); Coronavirus 229E,HKU1,NL63,OC4 Not Detected (NOT DETECT); Human Metapneumovirus Not Detected (NOT DETECT); Human Rhinovirus/Enterovirus Not Detected (NOT DETECT); Influenza A Not Detected (NOT DETECT); Influenza A H1 Not Detected (NOT DETECT); Influenza A H1-2009 Not Detected (NOT DETECT); Influenza A H3 Not Detected (NOT DETECT); Influenza B Not Detected (NOT DETECT); Mycoplasma Pneumoniae Not Detected (NOT DETECT); Parainfluenza Virus Type 1 Not Detected (NOT DETECT); Parainfluenza Virus Type 2 Not Detected (NOT DETECT); Parainfluenza Virus Type 3 Not Detected (NOT DETECT); Parainfluenza Virus Type 4 Not Detected (NOT DETECT); Respiratory Syncytial Virus A Not Detected (NOT DETECT); Respiratory Syncytial Virus B Not Detected (NOT DETECT); SARS-COV-2 Not Detected (NOT DETECT)
[2024-02-23 21:02] LABS: Vancomycin Trough 18.9 ug/mL (10-15)
[2024-02-23 23:49] LABS: P. Jirovecii DNA QL PCR NOT DETECTED; P. Jirovecii DNA QL PCR Source sputum
[2024-02-24] VITALS (43 sets, daily range): BP systolic 117–164; BP diastolic 61–95; PULSE 88–103; RESP 12–22; TEMP 36.6–37.6; O2SAT 89–96
[2024-02-24 03:46] LABS: Basophils % 0.1 %; Hematocrit 34.7 % (36-47); Lymphocytes # 0.4 10^3/uL (0.8-4.8); Lymphocytes % 3.3 %; Mean Corpuscular Hemoglobin 26.9 pg (27-33); Mean Corpuscular Volume 84.2 fl (85-98); Mean Platelet Volume 9.1 fL (7.4-10.4); Monocytes # 0.4 10^3/uL (0.2-0.9); Monocytes % 3.5 %; Neutrophils # 11.65 10^3/uL (1.8-7.7); Neutrophils % 92.9 %; Nucleated Red Blood Cells % 0 %; Platelet Count 358 10^3/cmm (157-399); Red Blood Count 4.12 10^6/uL (3.85-5.65); Red Cell Distribution Width 15.8 % (12.1-15.1); White Blood Count 12.54 10^3/uL (3.29-11.43)
[2024-02-24] MEDS: cefepime 2,000 mg SDV 2000 MG IVP ×2 (04:10→16:03)
[2024-02-24 04:13] LABS: Lactate Dehydrogenase 339 U/L (135-214)
[2024-02-24 04:24] LABS: Alanine Aminotransferase 20 U/L (0-33); Albumin Level 3.9 g/dL (3.5-5.2); Alkaline Phosphatase 80 U/L (35-105); Aspartate Amino Transferase 18 U/L (0-32); Blood Urea Nitrogen 38 mg/dL (8-23); Calcium 8.9 mg/dL (8.5-10.5); Carbon Dioxide 30 mmol/L (22-29); Chloride 93 mmol/L (98-107); Creatinine Clr Calc Pharmacy 120.4713; Globulin 2.3 g/dL (1.3-4.6); Glomerular Filtration Rate 84.8 mL/min (90-130); Glucose 233 mg/dL (65-115); Osmolality Calculated 295 mOsm/kg (285-295); Sodium 134 mmol/L (136-145); Total Bilirubin 0.5 mg/dL (0.15-1.2); Total Protein 6.2 g/dL (6.6-8.7)
[2024-02-24] MEDS: levoFLOXacin 500 mg Tablet 750 MG PO (05:12)
[2024-02-24] MEDS: ipratropium-albuterol 3 mL Neb INHALATION ×4 (08:21→20:19)
[2024-02-24] MEDS: benzonatate 100 mg Capsule 200 MG PO ×3 (08:45→20:39)
[2024-02-24] MEDS: aspirin 81 mg EC Tablet PO (08:45)
[2024-02-24] MEDS: atorvastatin 40 mg Tablet 20 MG PO (08:46)
[2024-02-24] MEDS: amlodipine 5 mg Tablet PO (08:46)
[2024-02-24] MEDS: duloxetine 60 mg Capsule PO ×2 (08:46→17:34)
[2024-02-24] MEDS: gabapentin 300 mg Capsule PO ×3 (08:46→20:39)
[2024-02-24] MEDS: potassium chloride ER 20 mEq Tablet 40 MEQ PO (08:46)
[2024-02-24] MEDS: roflumilast 500 mcg Tablet 250 MCG PO (08:46)
[2024-02-24] MEDS: bacitracin ointment Pkt 1 EACH TOPICAL (08:46)
[2024-02-24] MEDS: collagenase oint 30 gm 1 APPLIC TOPICAL (08:47)
[2024-02-24] MEDS: methylPREDNISolone sod succ 40 mg/mL INJ IVP ×2 (08:47→22:16)
[2024-02-24] MEDS: vancomycin 1,500 MG/300 ML PIGGYBACK 200 MG IV ×2 (08:47→20:39)
[2024-02-24] MEDS: nystatin powder 15 gm Btl 1 APPLIC TOPICAL ×2 (08:47→17:34)
--- NOTE | 2024-02-24 15:42 | PM.PN ---
Subjective Subjective: sitting up in chair at bedside today. Currently on 5 L/min supplemental O2. More conversant today. Desaturates with exertion such as transfer from bed to bedside chair down to 80%. Has intermittent hallucinations during nighttime. For instance overnight she saw some skulls on the table in front of her. Does not appear to be hallucinating in the daytime. Medications: Reviewed: Yes Vitals/I&O/Wt Last Vital Signs Temp 99.6 F 02/24/24 12:00 Pulse 100 02/24/24 15:29 Resp 18 02/24/24 15:29 BP 133/61 02/24/24 05:00 Pulse Ox 95 02/24/24 15:29 O2 Del Method Nasal Cannula 02/24/24 15:29 O2 Flow Rate 5 02/24/24 15:29 FiO2 5 02/24/24 01:30 02/24/24 02/24/24 02/24/24 06:59 14:59 22:59 Intake Total 263.333 / 3680.917 3737 / 1000 Output Total 400 / 4200 Balance -136.667 / -2571.970 1000 / 1000 Weight last 48 hrs Weight 130 kg Weight 140 kg Physical Exam Narrative: General: Chronically ill-appearing lady, currently has head of bed elevated. HEENT: PERRLA, pupils bilaterally equal and reactive, pallors not present Chest: Normal vesicular breath sounds, no added sounds, equal good air entry bilaterally CVS: S1-S2 regular, no murmurs, no tachycardia, no gallops, no rubs Abdomen: Soft, nontender, no organomegaly, bowel sounds present Neuro: No focal deficits, no facial deformity, AO x3, power 5/5 in all limbs Extremities: No current lower extremity pitting edema. Urinary Catheter Management: Chavez: Cath Placed During This Visit: yes Reason for Continuing Indwelling Catheter: Accurate Measurement of Urinary Output in Critically Ill Patients Urinary Catheter Date of Insertion: 02/13/24 Urinary Catheter Time of Insertion: 11:00 Data 02/24/24 03:33 02/24/24 03:33 Micro: Microbiology 02/23/24 16:30 Bacterial Antigens - Final Urine,Voided 02/23/24 16:30 Legionella Urinary Antigen - Final Urine,Voided A&P Assessment and plan (1) H/O mechanical aortic valve replacement: (2) Venous stasis: (3) Anticoagulant long-term use: (4) Morbid obesity: (5) Cellulitis: (6) Mild cognitive impairment: (7) COPD (chronic obstructive pulmonary disease): (8) Oxygen dependent: (9) Acute exacerbation of chronic obstructive airways disease: (10) Acute respiratory failure with hypoxia and hypercapnia: (11) ARDS (adult respiratory distress syndrome): (12) GUS (obstructive sleep apnea): (13) Hyponatremia: (14) Major depressive disorder, recurrent, severe with psychotic symptoms: (15) HTN (hypertension): Qualifiers: Hypertension type: primary hypertension Qualified Code(s): I10 - Essential (primary) hypertension (16) Dyslipidemia: (17) Tobacco abuse, in remission: Plan 63-year female who presented from home with chief complaint of worsening of shortness of breath, she was diagnosed with diastolic CHF exacerbation she was put on IV diuresis at baseline her bicarb seems to be around 35-40 because of her chronic hypercapnia, I was able to successfully get her BiPAP approved, her hypoxia worsened she required ICU for closer monitoring on heated high flow which we were able to transition down to high flow nasal cannula up to 6 L, she is BiPAP overnight, she is being diuresed, CTA rule out PE it showed worsening bilateral infiltrates consistent with ARDS, MRSA pneumonia, I decided to use PCP pneumonia antibiotic IV Bactrim for about 3 days which made her hyponatremic and more fluid overloaded despite use of diuresis, decision was made to switch her back to vancomycin on 02/21, currently she is on 6 L in the daytime and uses BiPAP overnight, her plan is to get her screened for LTAC if she gets hypoxic easily on minimal activity and ambulation. Rt Lower extremity cellulitis has improved. Daughter has been updated MRSA pneumonia related ARDS Severe ARDS Patient required ICU days to transition her from heated high flow to high flow nasal cannula She remained on heated high flow for about 2 days Transferred to ICU 02/17 Transfer out of ICU 02/20 Heated high flow discontinued 02/20 No signs of PE Discontinue Mucomyst no signs of mucous plugging worsening Chest vest physiotherapy and Mucomyst on hold for now Repeat x-ray has not shown any worsening Continue Bumex and IV steroids Change IV Bactrim back to vancomycin today 02/21 to avoid worsening of hyponatremia, volume overload and CRISTINE, Diastolic CHF exacerbation She was initially admitted to ICU as well spent 2 days before transition to [facility] Currently doing well on Bumex Patient is getting diuresed aggressively Signs of fluid load improving Skin wrinkling is evident No signs of PE Bactrim induced hyponatremia IV Bactrim discontinued switch her back to vancomycin The reason I choose IV Bactrim was to cover PCP pneumonia along MRSA because of her worsening hypoxia and ARDS however decision was made to switch back to vancomycin because of her worsening hyponatremia, CRISTINE, hypervolemia, she does not have typical cystic appearance on CT scan my suspicion for PCP pneumonia is low Other reason I have decided to change Bactrim to vancomycin as severe drug to drug interaction with Coumadin rt leg Cellulitis: Improving Daily Santyl dressing change Mechanical valve, A-fib without RVR INR supratherapeutic Appreciate pharmacy Coumadin dosing Full code Fluid restricted cardiac consistent carb diet Chavez catheter in place Disposition: Screening for LTAC, if does not get approval for LTAC she will need local fdc if oxygen requirement stays below 6 L BiPAP has been improved Plan for today: February 23, 2024. Chart reviewed in detail. Bilateral pneumonia, likely related to MRSA. Per daughters history, patient has had multiple bouts of pneumonia recently for which she has received short courses of antibiotics and steroids. She is on prednisone 5 mg daily chronically. Currently patient is on treatment with vancomycin based on sputum cultures revealing MRSA. Will place her back additionally on cefepime 2 g IV every 12 hours. Per review of chart, thus far patient has had 1 dose of ceftriaxone on on admission and then IV cefepime between the third through the sixth. Would maintain beta-lactam coverage to cover for the most common culprits of community-acquired pneumonia in addition to MRSA. Additionally add atypical coverage with levofloxacin 750 mg p.o. daily. Check urine Legionella and bacterial antigens. Previously also received presumptive treatment for PCP pneumonia. Screen for pneumocystis pneumonia with serum LDH and serum Fungitell. Previously ordered Fungitell has been sent from expectorated sputum,(this is not a bronchoscopic specimen) which would be unhelpful in screening for pneumocystis pneumonia. Pending pneumocystis PCR from sputum. Given bilateral infiltrates concern for potential aspiration additionally. Will order speech therapy assessment. Check respiratory viral panel. Continue supplemental 02 and intermittent Bipap during the day Plan for today February 24, 2024. Continuing antibiotics for pneumonia. Continue cefepime, vancomycin and Levaquin. Urine Legionella and bacterial antigens are negative. Pneumocystis PCR from sputum from February 19, 2024 is not detected. Kidney function improving today with creatinine at one 0.7. Hyperkalemia resolved. INR at 2.9 today. Warfarin dosing per pharmacy. Resume Bumex, will transition to oral Bumex from IV. intermittent hallucinations noted especially around sleeping time likely related to delirium from extended hospital stay/ICU delirium. Ongoing disposition planning. Declined by LTAC. Anticipate transition to SNF as she is likely to benefit from continued therapy to regain prior level of functioning. Speech therapy assessment completed. She displayed mild cough on 2 occasions with oral intake. She did display some difficulty with swallowing, however not related to consistency during the assessment. She has some difficulty with mastication and prefers to eat soft textures. Soft and bite-size consistency recommended. While sitting upright. Attestations Medical Necessity Statement*: Continued admission for IV antibiotics, transition IV to oral antibiotics, continued therapy, appropriate disposition planning. Coding Level of Care Code Acute Code for g Fwd Diagnoses H/O mechanical aortic valve replacement Z95.2 Venous stasis I87.8 Anticoagulant long-term use Z79.01 Morbid obesity E66.01 Cellulitis L03.90 Mild cognitive impairment G31.84 COPD (chronic obstructive pulmonary disease) J44.9 Oxygen dependent Z99.81 Acute exacerbation of chronic obstructive airways disease J44.1 Acute respiratory failure with hypoxia and hypercapnia J96.01; J96.02 ARDS (adult respiratory distress syndrome) J80 GUS (obstructive sleep apnea) G47.33 Hyponatremia E87.1 Major depressive disorder, recurrent, severe with psychotic symptoms F33.3 Primary hypertension I10 Hypertension type: primary hypertension Dyslipidemia E78.5 Tobacco abuse, in remission F17.201
[2024-02-24] MEDS: water for injection-sterile 10 ML 100 ML (16:59)
[2024-02-24] MEDS: bumetanide 1 mg Tablet 2 MG PO (17:34)
--- NOTE | 2024-02-24 22:29 | PC.NURSE ---
Patient weight shifted in recliner chair. Patient wishes to stay in chair to sleep.
[2024-02-25] VITALS (32 sets, daily range): BP systolic 116–161; BP diastolic 60–127; PULSE 77–107; RESP 15–29; TEMP 36–36.8; O2SAT 90–100
[2024-02-25] MEDS: cefepime 2,000 mg SDV 2000 MG IVP ×2 (03:42→15:11)
[2024-02-25 04:36] LABS: Hematocrit 33.9 % (36-47); Lymphocytes # 0.5 10^3/uL (0.8-4.8); Lymphocytes % 4.5 %; Mean Corpuscular Hemoglobin 26.3 pg (27-33); Mean Corpuscular Volume 84.8 fl (85-98); Mean Platelet Volume 9.4 fL (7.4-10.4); Monocytes # 0.4 10^3/uL (0.2-0.9); Monocytes % 3.8 %; Neutrophils % 91.3 %; Nucleated Red Blood Cells % 0 %; Platelet Count 345 10^3/cmm (157-399); Red Cell Distribution Width 15.8 % (12.1-15.1); White Blood Count 11.17 10^3/uL (3.29-11.43)
[2024-02-25 04:46] LABS: INR 1.89 (0.8-1.2)
[2024-02-25 05:05] LABS: Alanine Aminotransferase 19 U/L (0-33); Albumin Level 3.8 g/dL (3.5-5.2); Alkaline Phosphatase 73 U/L (35-105); Anion Gap 16.4 (5-19); Aspartate Amino Transferase 14 U/L (0-32); Blood Urea Nitrogen 41 mg/dL (8-23); Calcium 8.9 mg/dL (8.5-10.5); Carbon Dioxide 28 mmol/L (22-29); Chloride 94 mmol/L (98-107); Creatinine Clr Calc Pharmacy 115.2094; Globulin 2.6 g/dL (1.3-4.6); Glomerular Filtration Rate 84.8 mL/min (90-130); Glucose 250 mg/dL (65-115); Osmolality Calculated 297 mOsm/kg (285-295); Potassium 4.4 mmol/L (3.5-5.1); Sodium 134 mmol/L (136-145); Total Bilirubin 0.7 mg/dL (0.15-1.2); Total Protein 6.4 g/dL (6.6-8.7)
[2024-02-25] MEDS: levoFLOXacin 500 mg Tablet 750 MG PO (05:43)
[2024-02-25 06:00] LABS: Glucose Point of Care 249 mg/dL (70-110)
[2024-02-25 06:10] LABS: ABG PH Result 7.38 (7.35-7.45); Alveolar-Arterial Oxygen Gradi 18.6 mmHg (5-10); Arterial Blood Gas Hematocrit 34.7 % (37-47); Base Excess ABG 4.6 mmol/L (-2.0-2.0); Blood Gas Allen Test Pos; Blood Gas Sample Site Radial, right; Blood Gas Sample Type Arterial; Carboxyhemoglobin 1.1 %THgb (0.4-20.1); HCO3 ABG 30.8 mmol/L (22-26); HGB O2 Sat 97.3 % (95-100); Ionized Calcium Level - ABG 1.2 mmol/L (1.1-1.4); Methemoglobin 0.5 % (0.4-1.5); Oxygen Device BIPAP; Oxygen Saturation ABG 98.9; PO2 FiO2 Ratio Arterial Blood 251; Potassium Level - ABG 4.3 mmol/L (3.5-5.0); Total Hemoglobin 11.3 g/dL (12-16)
[2024-02-25] MEDS: ipratropium-albuterol 3 mL Neb INHALATION ×4 (07:39→20:32)
[2024-02-25] MEDS: aspirin 81 mg EC Tablet PO (08:48)
[2024-02-25] MEDS: atorvastatin 40 mg Tablet 20 MG PO (08:48)
[2024-02-25] MEDS: amlodipine 5 mg Tablet PO (08:48)
[2024-02-25] MEDS: benzonatate 100 mg Capsule 200 MG PO ×3 (08:49→20:22)
[2024-02-25] MEDS: collagenase oint 30 gm 1 APPLIC TOPICAL (08:49)
[2024-02-25] MEDS: bumetanide 1 mg Tablet 2 MG PO ×2 (08:49→18:29)
[2024-02-25] MEDS: potassium chloride ER 20 mEq Tablet 40 MEQ PO (08:50)
[2024-02-25] MEDS: nystatin powder 15 gm Btl 1 APPLIC TOPICAL (08:50)
[2024-02-25] MEDS: duloxetine 60 mg Capsule PO ×2 (08:50→18:29)
[2024-02-25] MEDS: gabapentin 300 mg Capsule PO ×3 (08:50→20:22)
[2024-02-25] MEDS: methylPREDNISolone sod succ 40 mg/mL INJ IVP (08:50)
[2024-02-25] MEDS: roflumilast 500 mcg Tablet 250 MCG PO (08:50)
[2024-02-25] MEDS: vancomycin 1,500 MG/300 ML PIGGYBACK 200 MG IV ×2 (08:51→21:38)
[2024-02-25] MEDS: bacitracin ointment Pkt 1 EACH TOPICAL (09:08)
--- NOTE | 2024-02-25 13:22 | PC.SOCIAL ---
IMM Updated. Updated pt on IMM. No questions voiced. Provided pt a copy. Initialed, dated, & timed copy in chart.
--- NOTE | 2024-02-25 14:46 | P.PN_ITS ---
Subjective 2 Subjective: No new complaints today. Doing well on 6 L/min this morning. He was BiPAP at nighttime. She appears to be more alert awake and in better spirits. Agreeable to going to SNF. No reported hallucinations overnight. Medications: Reviewed: Yes Vitals/I&O/Wt Last Vital Signs Temp 96.8 F L 02/25/24 07:25 Pulse 88 02/25/24 12:00 Resp 15 02/25/24 12:00 BP 125/72 02/25/24 12:00 Pulse Ox 95 02/25/24 12:00 O2 Del Method Nasal Cannula 02/25/24 11:15 O2 Flow Rate 6 02/25/24 11:15 FiO2 45 02/25/24 07:44 02/24/24 02/25/24 02/25/24 22:59 06:59 14:59 Intake Total 790 / 1790 340 / 340 Output Total 2049 / 2049 750 / 2800 Balance -1260 / -260 -750 / -1010 340 / 340 Weight last 48 hrs Weight 130 kg Physical Exam 2 Narrative: General: Sitting in bedside chair, appears more alert than previous exams. HEENT: PERRLA, pupils bilaterally equal and reactive, pallors not present Chest: Normal vesicular breath sounds, no added sounds, equal good air entry bilaterally CVS: S1-S2 regular, no murmurs, no tachycardia, no gallops, no rubs Abdomen: Soft, nontender, no organomegaly, bowel sounds present Neuro: No focal deficits, no facial deformity, AO x3, power 5/5 in all limbs Extremities: No current lower extremity pitting edema. Urinary Catheter Management: Chavez: Cath Placed During This Visit: yes Reason for Continuing Indwelling Catheter: Accurate Measurement of Urinary Output in Critically Ill Patients Urinary Catheter Date of Insertion: 02/13/24 Urinary Catheter Time of Insertion: 11:00 Data 02/25/24 04:02 02/25/24 04:02 A&P Assessment and plan (1) H/O mechanical aortic valve replacement: (2) Venous stasis: (3) Anticoagulant long-term use: (4) Morbid obesity: (5) Cellulitis: (6) Mild cognitive impairment: (7) COPD (chronic obstructive pulmonary disease): (8) Oxygen dependent: (9) Acute exacerbation of chronic obstructive airways disease: (10) Acute respiratory failure with hypoxia and hypercapnia: (11) ARDS (adult respiratory distress syndrome): (12) GUS (obstructive sleep apnea): (13) Hyponatremia: (14) Major depressive disorder, recurrent, severe with psychotic symptoms: (15) HTN (hypertension): Qualifiers: Hypertension type: primary hypertension Qualified Code(s): I10 - Essential (primary) hypertension (16) Dyslipidemia: (17) Tobacco abuse, in remission: Plan 63-year female who presented from home with chief complaint of worsening of shortness of breath, she was diagnosed with diastolic CHF exacerbation she was put on IV diuresis at baseline her bicarb seems to be around 35-40 because of her chronic hypercapnia, I was able to successfully get her BiPAP approved, her hypoxia worsened she required ICU for closer monitoring on heated high flow which we were able to transition down to high flow nasal cannula up to 6 L, she is BiPAP overnight, she is being diuresed, CTA rule out PE it showed worsening bilateral infiltrates consistent with ARDS, MRSA pneumonia, I decided to use PCP pneumonia antibiotic IV Bactrim for about 3 days which made her hyponatremic and more fluid overloaded despite use of diuresis, decision was made to switch her back to vancomycin on 02/21, currently she is on 6 L in the daytime and uses BiPAP overnight, her plan is to get her screened for LTAC if she gets hypoxic easily on minimal activity and ambulation. Rt Lower extremity cellulitis has improved. Daughter has been updated MRSA pneumonia related ARDS Severe ARDS Patient required ICU days to transition her from heated high flow to high flow nasal cannula She remained on heated high flow for about 2 days Transferred to ICU 02/17 Transfer out of ICU 02/20 Heated high flow discontinued 02/20 No signs of PE Discontinue Mucomyst no signs of mucous plugging worsening Chest vest physiotherapy and Mucomyst on hold for now Repeat x-ray has not shown any worsening Continue Bumex and IV steroids Change IV Bactrim back to vancomycin today 02/21 to avoid worsening of hyponatremia, volume overload and CRISTINE, Diastolic CHF exacerbation She was initially admitted to ICU as well spent 2 days before transition to MedSurg Currently doing well on Bumex Patient is getting diuresed aggressively Signs of fluid load improving Skin wrinkling is evident No signs of PE Bactrim induced hyponatremia IV Bactrim discontinued switch her back to vancomycin The reason I choose IV Bactrim was to cover PCP pneumonia along MRSA because of her worsening hypoxia and ARDS however decision was made to switch back to vancomycin because of her worsening hyponatremia, CRISTINE, hypervolemia, she does not have typical cystic appearance on CT scan my suspicion for PCP pneumonia is low Other reason I have decided to change Bactrim to vancomycin as severe drug to drug interaction with Coumadin rt leg Cellulitis: Improving Daily Santyl dressing change Mechanical valve, A-fib without RVR INR supratherapeutic Appreciate pharmacy Coumadin dosing Full code Fluid restricted cardiac consistent carb diet Chavez catheter in place Disposition: Screening for LTAC, if does not get approval for LTAC she will need local long-term if oxygen requirement stays below 6 L BiPAP has been improved Plan for today: February 23, 2024. Chart reviewed in detail. Bilateral pneumonia, likely related to MRSA. Per daughters history, patient has had multiple bouts of pneumonia recently for which she has received short courses of antibiotics and steroids. She is on prednisone 5 mg daily chronically. Currently patient is on treatment with vancomycin based on sputum cultures revealing MRSA. Will place her back additionally on cefepime 2 g IV every 12 hours. Per review of chart, thus far patient has had 1 dose of ceftriaxone on on admission and then IV cefepime between the third through the sixth. Would maintain beta-lactam coverage to cover for the most common culprits of community-acquired pneumonia in addition to MRSA. Additionally add atypical coverage with levofloxacin 750 mg p.o. daily. Check urine Legionella and bacterial antigens. Previously also received presumptive treatment for PCP pneumonia. Screen for pneumocystis pneumonia with serum LDH and serum Fungitell. Previously ordered Fungitell has been sent from expectorated sputum,(this is not a bronchoscopic specimen) which would be unhelpful in screening for pneumocystis pneumonia. Pending pneumocystis PCR from sputum. Given bilateral infiltrates concern for potential aspiration additionally. Will order speech therapy assessment. Check respiratory viral panel. Continue supplemental 02 and intermittent Bipap during the day Plan for today February 24, 2024. Continuing antibiotics for pneumonia. Continue cefepime, vancomycin and Levaquin. Urine Legionella and bacterial antigens are negative. Pneumocystis PCR from sputum from February 19, 2024 is not detected. Kidney function improving today with creatinine at one 0.7. Hyperkalemia resolved. INR at 2.9 today. Warfarin dosing per pharmacy. Resume Bumex, will transition to oral Bumex from IV. intermittent hallucinations noted especially around sleeping time likely related to delirium from extended hospital stay/ICU delirium. Ongoing disposition planning. Declined by LTAC. Anticipate transition to SNF as she is likely to benefit from continued therapy to regain prior level of functioning. Speech therapy assessment completed. She displayed mild cough on 2 occasions with oral intake. She did display some difficulty with swallowing, however not related to consistency during the assessment. She has some difficulty with mastication and prefers to eat soft textures. Soft and bite-size consistency recommended. While sitting upright. Plan for today February 25, 2024. Kidney function is stable. Net -1.6 L over last 24 hours. Maintaining O2 sats on 6 L/min supplemental O2. Using BiPAP at nighttime. Continue Bumex 2 mg p.o. daily. Continue PT OT. Continue IV antibiotics, will transition to oral at discharge. Transition methylprednisolone 40 IV every 12 to prednisone p.o. 40 mg daily patient is extremely deconditioned related to her prolonged severe illness. INR down to 1.89, warfarin to be resumed. Pharmacy to dose based on INR. Anticipate discharge in the upcoming 24 to 48 hours if continues to do well. Attestations 2 Medical Necessity Statement*: iv abx, transtion steroids, continue PT/OT , anticipate discharge upcoming 24 hrs. Transfer out of ICU to med/surg Coding Level of Care Code Acute Code for Chg Fwd Diagnoses H/O mechanical aortic valve replacement Z95.2 Venous stasis I87.8 Anticoagulant long-term use Z79.01 Morbid obesity E66.01 Cellulitis L03.90 Mild cognitive impairment G31.84 COPD (chronic obstructive pulmonary disease) J44.9 Oxygen dependent Z99.81 Acute exacerbation of chronic obstructive airways disease J44.1 Acute respiratory failure with hypoxia and hypercapnia J96.01; J96.02 ARDS (adult respiratory distress syndrome) J80 GUS (obstructive sleep apnea) G47.33 Hyponatremia E87.1 Major depressive disorder, recurrent, severe with psychotic symptoms F33.3 Primary hypertension I10 Hypertension type: primary hypertension Dyslipidemia E78.5 Tobacco abuse, in remission F17.201
[2024-02-25] MEDS: warfarin 1 mg Tablet 3 MG PO (15:10)
[2024-02-25 15:29] LABS: Estmated Average Glucose 140; Hemoglobin A1C 6.5 % (4.0-6.0)
[2024-02-25 21:25] LABS: Vancomycin Trough 19.2 ug/mL (10-15)
[2024-02-26] VITALS (10 sets, daily range): BP systolic 112–158; BP diastolic 56–92; PULSE 84–100; RESP 17–19; TEMP 36.8–36.9; O2SAT 85–99
[2024-02-26] MEDS: cefepime 2,000 mg SDV 2000 MG IVP (03:01)
[2024-02-26] MEDS: water for injection-sterile SDV 10 mL IVP (03:01)
[2024-02-26 05:27] LABS: Basophils % 0.1 %; Eosinophils # 0.1 10^3/uL (0.0-0.8); Eosinophils % 0.6 %; Hematocrit 37.8 % (36-47); Lymphocytes # 2.3 10^3/uL (0.8-4.8); Lymphocytes % 13.4 %; Mean Corpuscular HGB Conc 31.5 g/dL (30-55); Mean Corpuscular Hemoglobin 26.6 pg (27-33); Mean Corpuscular Volume 84.4 fl (85-98); Mean Platelet Volume 9.3 fL (7.4-10.4); Monocytes # 1.2 10^3/uL (0.2-0.9); Monocytes % 6.7 %; Neutrophils # 13.51 10^3/uL (1.8-7.7); Neutrophils % 78.7 %; Nucleated Red Blood Cells % 0 %; Platelet Count 479 10^3/cmm (157-399); Red Blood Count 4.48 10^6/uL (3.85-5.65); White Blood Count 17.18 10^3/uL (3.29-11.43)
[2024-02-26 05:39] LABS: INR 1.46 (0.8-1.2)
[2024-02-26 05:48] LABS: Alanine Aminotransferase 24 U/L (0-33); Albumin Level 4.2 g/dL (3.5-5.2); Alkaline Phosphatase 82 U/L (35-105); Anion Gap 20.7 (5-19); Aspartate Amino Transferase 18 U/L (0-32); Blood Urea Nitrogen 42 mg/dL (8-23); Carbon Dioxide 27 mmol/L (22-29); Chloride 92 mmol/L (98-107); Creatinine Clr Calc Pharmacy 89.6073; Glomerular Filtration Rate 63.4 mL/min (90-130); Glucose 177 mg/dL (65-115); Osmolality Calculated 297 mOsm/kg (285-295); Potassium 3.7 mmol/L (3.5-5.1); Sodium 136 mmol/L (136-145); Total Bilirubin 0.8 mg/dL (0.15-1.2); Total Protein 7.2 g/dL (6.6-8.7)
[2024-02-26] MEDS: levoFLOXacin 500 mg Tablet 750 MG PO (06:07)
[2024-02-26] MEDS: duloxetine 60 mg Capsule PO (07:59)
[2024-02-26] MEDS: vancomycin 1,500 MG/300 ML PIGGYBACK 200 MG IV (07:59)
[2024-02-26] MEDS: aspirin 81 mg EC Tablet PO (07:59)
[2024-02-26] MEDS: benzonatate 100 mg Capsule 200 MG PO ×2 (07:59→14:51)
[2024-02-26] MEDS: potassium chloride ER 20 mEq Tablet 40 MEQ PO (07:59)
[2024-02-26] MEDS: amlodipine 5 mg Tablet PO (07:59)
[2024-02-26] MEDS: bumetanide 1 mg Tablet 2 MG PO (07:59)
[2024-02-26] MEDS: gabapentin 300 mg Capsule PO ×2 (07:59→14:51)
[2024-02-26] MEDS: predniSONE 20 mg Tablet 40 MG PO (07:59)
[2024-02-26] MEDS: atorvastatin 40 mg Tablet 20 MG PO (08:00)
[2024-02-26] MEDS: roflumilast 500 mcg Tablet 250 MCG PO (08:00)
[2024-02-26] MEDS: ipratropium-albuterol 3 mL Neb INHALATION ×2 (08:29→11:39)
[2024-02-26] MEDS: nystatin powder 15 gm Btl 1 APPLIC TOPICAL (11:43)
[2024-02-26] MEDS: bacitracin ointment Pkt 1 EACH TOPICAL (11:43)
[2024-02-26] MEDS: collagenase oint 30 gm 1 APPLIC TOPICAL (11:44)
--- NOTE | 2024-02-26 13:21 | PM.DCS ---
Discharge Providers Date of Admission: 02/08/24 15:32 Date of Discharge: February 26, 2024 Attending Provider at Admission: Viki Victor MD Attending Provider at Discharge: Ángela Cao MD Primary Care Provider: JW Garsia Diagnoses at Discharge Discharge Diagnosis (1) H/O mechanical aortic valve replacement: Status: Acute (2) Venous stasis: Status: Acute (3) Anticoagulant long-term use: Status: Acute (4) Morbid obesity: Status: Acute (5) Cellulitis: Status: Acute (6) Mild cognitive impairment: Status: Acute (7) COPD (chronic obstructive pulmonary disease): Status: Acute (8) Oxygen dependent: Status: Acute (9) Acute exacerbation of chronic obstructive airways disease: Status: Acute (10) Acute respiratory failure with hypoxia and hypercapnia: Status: Acute (11) ARDS (adult respiratory distress syndrome): Status: Acute (12) GUS (obstructive sleep apnea): Status: Acute (13) Hyponatremia: Status: Acute (14) Major depressive disorder, recurrent, severe with psychotic symptoms: Status: Acute (15) HTN (hypertension): Status: Acute Qualifiers: Hypertension type: primary hypertension Qualified Code(s): I10 - Essential (primary) hypertension (16) Dyslipidemia: Status: Acute (17) Tobacco abuse, in remission: Status: Acute Reason for Visit Reason for Visit: SOB Hospital Course Hospital Course 63-year female medical history significant for aortic valve replacement, currently on anticoagulation with warfarin, COPD, hypertension,obstructive sleep apnea, previous tobacco use, dyslipidemia, morbid obesity, major depressive disorder who presented from home with chief complaint of worsening of shortness of breath, She was diagnosed with acute on chronic diastolic CHF exacerbation for which with Bumex. She was put on IV diuresis . He required ICU admission due to significant hypoxia and was required to be on BiPAP during nighttime and also during the day. She had high oxygen requirements, initially she was on BiPAP, then weaned down to heated high flow and then finally able to be transition to nasal cannula at 6 L/min by the time of discharge. IV diuresis has been transitioned to Bumex 2 mg p.o. twice daily at the time of discharge. CTA ruled out PE but it showed worsening bilateral infiltrates consistent with ARDS.her sputum culture revealed MRSA and she was presumptively also diagnosed with MRSA pneumonia. Cultures she received treatment with IV vancomycin starting on February 07. Patient has finally started to show improvement in the week of discharge. Antibiotics have been transitioned to oral linezolid for remaining 5 days. She has had an extended course of antibiotics overall during course of admission. She has been instructed to hold duloxetine until she completes her linezolid course. May resume duloxetine 24 hours after completing linezolid to avoid serotonin release syndrome. She was transiently also placed on high-dose Bactrim for suspected PCP pneumonia pneumonia. This did cause her INR to become supratherapeutic and Coumadin was held for a few days. Coumadin has been resumed once INR was close to 2. Currently she is recommended to take 3 mg p.o. warfarin every day and recheck INR with her primary care provider in the next 4 to 7 days. PJP pneumonia was eventually ruled out by negative PCR. Patient was highly recommended to transition to residential facility as she has shown significant deconditioning during her stay here as a result of critical illness. She exhibited decreased endurance, she was evaluated by physical and Occupational Therapy while in the hospital. Highly recommend to consider transition to residential facility for ongoing rehab due to significant deconditioning. She was declined by LTAC. Attempts were then placed to transition her to SNF for intensive therapy, however while patient was initially agreeable, today she has declined this transfer. States that she would prefer to return home under the care of her and son. Of note her is in a wheelchair and previous conversations have indicated that he will not be appropriately able to care for her. Her son is at bedside today and declines transition to SNF additionally. Overall patient is currently improved compared to admission, however remains chronically ill, at high risk for recurrent readmissions due to her deconditioned state both with regards to muscle strength and respiratory status. Recommended to continue use of BiPAP at nighttime. Physical Exam Narrative: General: No acute distress, AO x3, saturating 93% on 5 L/min nasal cannula HEENT: PERRLA, pupils bilaterally equal and reactive, pallors not present Chest: Normal vesicular breath sounds, no added sounds, equal good air entry bilaterally CVS: S1-S2 regular, no murmurs, no tachycardia, no gallops, no rubs Abdomen: Soft, nontender, no organomegaly, bowel sounds present Neuro: No focal deficits, no facial deformity, AO x3, power 5/5 in all limbs Extremities: Lower extremity edema significantly improved Urinary Catheter Management: Chavez: Cath Placed During This Visit: yes, but has since been removed by the nurse Reason for Continuing Indwelling Catheter: Decision to DC Catheter Urinary Catheter Date of Insertion: 02/13/24 Urinary Catheter Time of Insertion: 11:00 Date Urinary Catheter Removed: 02/25/24 Time Urinary Catheter Discontinued: 18:00 Discharge Data Studies Completed and Pending Completed Studies During Hospitalization Category Date Time Status CTA PE [CT angio chest PE protcl [id number]] Routine Cat Scan 02/11/24 08:23 Completed CTA PE [CT angio chest PE protcl [id number]] Routine Cat Scan 02/16/24 12:43 Completed XR chest 1V portable [id number] Routine Exams 02/21/24 07:00 Completed XR chest 1V portable [id number] Stat Exams 02/08/24 13:51 [place] [id number] Routine Ultrasound 02/09/24 06:00 Completed CV. echo complete* [id number] Routine Ultrasound 02/09/24 06:00 Completed Pending at discharge Category Date Time Status Fungitell Glucan Assay (Blood) AM LABS Lab 02/23/24 20:25 Received Miscellaneous Test Routine Lab 02/19/24 17:40 Received Radiology Impressions Chest CTA 02/16/24 12:43 IMPRESSION: 1. No central pulmonary embolism. Limited evaluation of the segmental and subsegmental branches. 2. Moderate multifocal bilateral ground-glass opacities significantly increased from 02/11/2020 , likely due to interstitial pulmonary edema versus atypical multifocal pneumonia/ARDS. Mild cardiomegaly. 3. Increased mucoid retention in the left mainstem bronchus and lower lobe bronchi, . Increased left lower lobe opacity due to atelectasis or pneumonic consolidation . 4. Features of early hepatic cirrhosis, cholelithiasis, left renal stone and other findings detailed above. COMMENTS: Consistent with the [employer] [place] [employer]'s Incidental Findings Committee white paper (J Am Jemal Radiol 2018): Any incidental renal lesion less than 1 cm or classified as too small to characterize, or any incidental cystic renal lesion characterized as simple-appearing, is likely benign. No follow-up imaging is recommended for these lesions per consensus recommendations based on imaging criteria. Chest X-Ray 02/21/24 07:00 IMPRESSION: No acute cardiopulmonary process. Laboratory Results WBC 17.18 10^3/uL (3.29-11.43) H 02/26/24 05:07 RBC 4.48 10^6/uL (3.85-5.65) 02/26/24 05:07 Hgb 11.90 g/dL (11.27-16.99) 02/26/24 05:07 Hct 37.8 % (36-47) 02/26/24 05:07 MCV 84.4 fl (85-98) L 02/26/24 05:07 MCH 26.6 pg (27-33) L 02/26/24 05:07 MCHC 31.5 g/dL (30-55) 02/26/24 05:07 RDW 16.0 % (12.1-15.1) H 02/26/24 05:07 Plt Count 479 10^3/cmm (157-399) H D 02/26/24 05:07 MPV 9.3 fL (7.4-10.4) 02/26/24 05:07 Neut % (Auto) 78.7 % 02/26/24 05:07 Lymph % (Auto) 13.4 % 02/26/24 05:07 Dickinson % (Auto) 6.7 % 02/26/24 05:07 Eos % (Auto) 0.6 % 02/26/24 05:07 Baso % (Auto) 0.1 % 02/26/24 05:07 Neut # (Auto) 13.51 10^3/uL (1.8-7.7) H 02/26/24 05:07 Lymph # (Auto) 2.3 10^3/uL (0.8-4.8) 02/26/24 05:07 Dickinson # (Auto) 1.2 10^3/uL (0.2-0.9) H 02/26/24 05:07 Eos # (Auto) 0.1 10^3/uL (0.0-0.8) 02/26/24 05:07 Baso # (Auto) 0.0 10^3/uL (0.0-0.1) 02/26/24 05:07 Nucleated RBC % (auto) 0 % 02/26/24 05:07 Nucleated RBCs # 0.0 /100WBC 02/26/24 05:07 PT 18.20 SECONDS (12.1-14.9) H 02/26/24 05:07 INR 1.46 (0.8-1.2) H 02/26/24 05:07 D-Dimer 0.86 ug/mLFEU (0-0.59) H 02/08/24 14:28 Specimen Type Arterial 02/25/24 06:00 Sample Site Radial, right 02/25/24 06:00 ABG pH 7.38 (7.35-7.45) 02/25/24 06:00 ABG pCO2 52.0 mmHg (35-45) H 02/25/24 06:00 ABG pO2 113.0 mmHg (80.0-100.0) H 02/25/24 06:00 ABG PO2/FiO2 Ratio 251 02/25/24 06:00 ABG HCO3 30.8 mmol/L (22-26) H 02/25/24 06:00 ABG O2 Saturation 98.9 02/25/24 06:00 ABG Base Excess 4.6 mmol/L (-2.0-2.0) H 02/25/24 06:00 Milton Test Pos 02/25/24 06:00 A-a O2 Gradient 18.6 mmHg (5-10) H 02/25/24 06:00 Hematocrit 34.7 % (37-47) L 02/25/24 06:00 Hgb O2 Saturation 97.3 % (95-100) 02/25/24 06:00 Carboxyhemoglobin 1.1 %THgb (0.4-20.1) 02/25/24 06:00 Methemoglobin 0.5 % (0.4-1.5) 02/25/24 06:00 Total Hemoglobin 11.3 g/dL (12-16) L 02/25/24 06:00 Sodium 137.0 mmol/L (131-143) 02/25/24 06:00 Potassium 4.3 mmol/L (3.5-5.0) 02/25/24 06:00 Glucose 209.0 mg/dL (70-115) H 02/25/24 06:00 Ionized Calcium 1.2 mmol/L (1.1-1.4) 02/25/24 06:00 O2 Delivery Device Bipap 02/25/24 06:00 O2 Liters/Min 5.0 % 02/22/24 21:42 FiO2 45.0 % 02/25/24 06:00 Urgent Care Technician ID [email or web address] 02/25/24 06:00 Sodium 136 mmol/L (136-145) 02/26/24 05:07 Potassium 3.7 mmol/L (3.5-5.1) 02/26/24 05:07 Chloride 92 mmol/L (98-107) L 02/26/24 05:07 Carbon Dioxide 27 mmol/L (22-29) 02/26/24 05:07 Anion Gap 20.7 (5-19) H 02/26/24 05:07 BUN 42 mg/dL (8-23) H 02/26/24 05:07 Creatinine 0.9 mg/dL (0.5-0.9) 02/26/24 05:07 GFR Calculation 63.4 mL/min (90-130) L 02/26/24 05:07 Glucose 177 mg/dL (65-115) H 02/26/24 05:07 POC Glucose 249 mg/dL (70-110) H 02/25/24 05:53 Estimat Average Glucose 140 02/25/24 04:02 Hemoglobin A1c 6.5 % (4.0-6.0) H 02/25/24 04:02 Calculated Osmolality 297 mOsm/kg (285-295) H 02/26/24 05:07 Calcium 9.0 mg/dL (8.5-10.5) 02/26/24 05:07 Magnesium 1.9 mg/dL (1.7-2.3) 02/11/24 02:45 Total Bilirubin 0.8 mg/dL (0.15-1.2) 02/26/24 05:07 AST 18 U/L (0-32) 02/26/24 05:07 ALT 24 U/L (0-33) 02/26/24 05:07 Alkaline Phosphatase 82 U/L (35-105) 02/26/24 05:07 Lactate Dehydrogenase 339 U/L (135-214) H 02/24/24 03:33 Troponin T Baseline 15 ng/L (0-10) H 02/11/24 00:20 Troponin T 120 Minute 13.19 ng/L (0-10) H 02/11/24 02:45 Delta Troponin T -1.81 ABS# (0-10) L 02/11/24 02:45 Troponin T Hi Sens 6Hr 12.33 ng/L (0-10) H 02/11/24 06:32 Troponin T Hi Sens 6Hr Delta -2.67 ng/L (0-12) L 02/11/24 06:32 C-Reactive Protein 12.5 mg/L (0.0-4.9) H 02/20/24 05:36 NT-Pro-B Natriuret Pep 248 pg/mL (0-125) H 02/08/24 14:28 NT-Pro-B Natriuret Pep Cancelled 02/08/24 14:28 Total Protein 7.2 g/dL (6.6-8.7) 02/26/24 05:07 Albumin 4.2 g/dL (3.5-5.2) 02/26/24 05:07 Globulin 3.0 g/dL (1.3-4.6) 02/26/24 05:07 Procalcitonin 0.05 ng/mL (0-0.5) 02/08/24 14:28 TSH 3.00 uIU/mL (0.27-4.20) 02/08/24 14:28 Vancomycin Trough 19.2 ug/mL (10-15) H 02/25/24 20:25 Adenovirus (PCR) Not detected (NOT DETECT) 02/23/24 16:30 C. pneumoniae DNA (PCR) Not detected (NOT DETECT) 02/23/24 16:30 Coronavirus 229E (PCR) Not detected (NOT DETECT) 02/23/24 16:30 Human Metapneumovir PCR Not detected (NOT DETECT) 02/23/24 16:30 Influenza A (H1) PCR Not detected (NOT DETECT) 02/23/24 16:30 Influ A (H1/09) PCR Not detected (NOT DETECT) 02/23/24 16:30 Influenza A (H3) PCR Not detected (NOT DETECT) 02/23/24 16:30 Influenza Type A (PCR) Not detected (NOT DETECT) 02/23/24 16:30 Influenza Type B (PCR) Not detected (NOT DETECT) 02/23/24 16:30 M. pneumoniae (PCR) Not detected (NOT DETECT) 02/23/24 16:30 Parainfluenza 1 (PCR) Not detected (NOT DETECT) 02/23/24 16:30 Parainfluenza 2 (PCR) Not detected (NOT DETECT) 02/23/24 16:30 Parainfluenza 3 (PCR) Not detected (NOT DETECT) 02/23/24 16:30 Parainfluenza 4 (PCR) Not detected (NOT DETECT) 02/23/24 16:30 Pneumocystis Source sputum 02/19/24 17:10 Pneumocyst jirovecii PCR Not detected 02/19/24 17:10 RSV Type A (PCR) Not detected (NOT DETECT) 02/23/24 16:30 RSV Type B (PCR) Not detected (NOT DETECT) 02/23/24 16:30 Entero/Rhino (PCR) Not detected (NOT DETECT) 02/23/24 16:30 SARS-CoV-2 (PCR) Not detected (NOT DETECT) 02/23/24 16:30 Beta-(1,3)-D-Glucan Cancelled 02/19/24 17:10 B-(1,3)-D-Glucan Intrp Cancelled 02/19/24 17:10 Vitals Last Vital Signs Temp 98.4 F 02/26/24 12:00 Pulse 95 02/26/24 12:00 Resp 17 02/26/24 12:00 BP 114/62 02/26/24 12:00 Pulse Ox 93 02/26/24 12:00 O2 Del Method Nasal Cannula 02/26/24 12:00 O2 Flow Rate 5 02/26/24 12:00 FiO2 45 02/25/24 07:44 Discharge Plan Discharge Patient Disposition: Home Condition: Fair Prescriptions: New roflumilast 500 mcg Tablet 250 mcg PO DAILY Qty: 0 0RF bumetanide 1 mg Tablet 2 mg PO BID 15 Days Qty: 60 0RF warfarin [Jantoven] 1 mg Tablet 3 mg PO DAILY@1400 7 Days Qty: 7 0RF linezolid 600 mg tablet 600 mg PO Q12H 5 Days Qty: 10 0RF benzonatate 100 mg Capsule 200 mg PO TID Qty: 0 0RF levofloxacin 500 mg Tablet 750 mg PO DAILY@0600 2 Days Qty: 2 0RF Continued atorvastatin 20 mg tablet 20 mg PO DAILY magnesium oxide 400 mg magnesium tablet 400 mg PO BID aspirin [Adult Low Dose Aspirin] 81 mg tablet,delayed release (DR/EC) 81 mg PO DAILY gabapentin 300 mg capsule 300 mg PO TID albuterol sulfate [ProAir HFA] 90 mcg/actuation HFA aerosol inhaler 2 puff INHALATION Q6H PRN (Reason: shortness of breath ) amlodipine 5 mg tablet 5 mg PO DAILY Qty: 90 3RF Gene Carverphere 160-9-4.8 mcg/actuation HFA aerosol inhaler 2 inh inhalation BID ferrous sulfate [Tommy-Time] 325 mg (65 mg iron) tablet 325 mg PO DAILY levothyroxine 112 mcg capsule 112 mcg PO DAILY (DME) oxygen-air delivery systems Device See Rx Instructions .Route Rx Instructions: As directed potassium chloride [Klor-Con M20] 20 mEq tablet,ER particles/crystals 20 meq PO DAILY brexpiprazole 2 mg tablet See Rx Instructions .ROUTE .COMPLEX Qty: 30 5RF Dose Instruction: Take 1 tablet by mouth once daily Rx Instructions: Take 1 tablet by mouth once daily warfarin 3 mg tablet See Rx Instructions .ROUTE .COMPLEX Qty: 90 3RF Protocol: Dose Management Condition: Friday Dose/Route: 4 mg Instruction: 1 x 4 mg tablet Condition: Friday Dose/Route: 0 mg Instruction: 0 tablets Condition: Friday Dose/Route: 3 mg Instruction: 1 x 3 mg tablet Condition: Friday Dose/Route: 3 mg Instruction: 1 x 3 mg tablet Condition: Dose/Route: 4 mg Instruction: 1 x 4 mg tablet Condition: Friday Dose/Route: 4 mg Instruction: 1 x 4 mg tablet Condition: Friday Dose/Route: 4 mg Instruction: 1 x 4 mg tablet Protocol Text: Adjustment Start Date: 02/05/24 INR Value: 4.1 INR Date: 02/02/24 Recheck Date: 02/12/24 Dose Instruction: TAKE 1 TABLET BY MOUTH EVERY DAY Rx Instructions: TAKE 1 TABLET BY MOUTH EVERY DAY prednisone 10 mg tablet 10 mg PO DAILY theophylline 400 mg tablet extended release 24 hr 400 mg PO DAILY benzonatate 100 mg capsule 100 mg PO TID PRN (Reason: Cough) jceuwlib-jfmebiglx-SP 3.5-10,000-1 mg/mL-unit/mL-% drops,suspension 4 drp otic (ear) QID Rx Instructions: FOR 10 DAYS roflumilast 500 mcg tablet 500 mcg PO DAILY warfarin 4 mg tablet 4 mg PO Q7D Protocol: Dose Management Condition: Friday Dose/Route: 4 mg Instruction: 1 x 4 mg tablet Condition: Friday Dose/Route: 0 mg Instruction: 0 tablets Condition: Friday Dose/Route: 3 mg Instruction: 1 x 3 mg tablet Condition: Friday Dose/Route: 3 mg Instruction: 1 x 3 mg tablet Condition: Dose/Route: 4 mg Instruction: 1 x 4 mg tablet Condition: Friday Dose/Route: 4 mg Instruction: 1 x 4 mg tablet Condition: Friday Dose/Route: 4 mg Instruction: 1 x 4 mg tablet Protocol Text: Adjustment Start Date: 02/05/24 INR Value: 4.1 INR Date: 02/02/24 Recheck Date: 02/12/24 Rx Instructions: FRIDAY hydroxyzine pamoate 25 mg capsule 25 mg PO TID PRN (Reason: Anxiety) Held duloxetine 60 mg capsule,delayed release(DR/EC) See Rx Instructions .ROUTE .COMPLEX Qty: 60 5RF Hold Instructions: Resume on 03/04/24. resume after completing linezolid course Dose Instruction: Take 1 capsule by mouth twice daily Rx Instructions: Take 1 capsule by mouth twice daily Discontinued furosemide 40 mg tablet 40 mg PO DAILY Discharge Orders: Discharge Order (Routine); Ordered 02/26/24 Ordered By: Ángela Cao Other Ambulatory Orders: DME: DEBBY (Order) Location: None Selected Ordered By: Mary Mart Referrals: Mita Carvajal FNP [Primary Care Provider] - 03/04/24 11:20 am (needs INR check and CMP given multiple dose changes in the hospital ; hospital discharge follow up ) [facility], [Staff Physician] - (We have notified your physician's clinic of the need for a follow-up appointment to be scheduled. If you have not heard from them within the next 2 business days, please call them directly. ) Discharge Diet: As Directed Discharge Activity: Resume usual activity Patient Instructions: Opioid Safety Activity Restrictions/Additional Instructions: Please take warfarin 3 mg p.o. daily, follow-up with your primary care provider in the next 4 to 7 days to recheck INR as further dose adjustments with warfarin would likely be needed. He will also need a recheck on your kidney function and electrolytes with your primary care provider in this timeframe. Please do not take duloxetine until you complete linezolid antibiotic. Duloxetine may be resumed on March 04, 2024. Discharge Attestations Time Spent in Discharge Care*: greater than 30 min Quality Metrics Clinical Quality Measures [ No reported AMI, CVA or VTE this stay] Coding Level of Care Code Acute Code for Chg Fwd Total time (in minutes) for Discharge: 45 Diagnoses H/O mechanical aortic valve replacement Z95.2 Venous stasis I87.8 Anticoagulant long-term use Z79.01 Morbid obesity E66.01 Cellulitis L03.90 Mild cognitive impairment G31.84 COPD (chronic obstructive pulmonary disease) J44.9 Oxygen dependent Z99.81 Acute exacerbation of chronic obstructive airways disease J44.1 Acute respiratory failure with hypoxia and hypercapnia J96.01; J96.02 ARDS (adult respiratory distress syndrome) J80 GUS (obstructive sleep apnea) G47.33 Hyponatremia E87.1 Major depressive disorder, recurrent, severe with psychotic symptoms F33.3 Primary hypertension I10 Hypertension type: primary hypertension Dyslipidemia E78.5 Tobacco abuse, in remission F17.201
--- NOTE | 2024-02-26 14:08 | PC.NURSE ---
Discharge Note Patient discharged to home via private vehicle accompanied by daughter. Discharge instructions reviewed with patient and/or customer field representative. Mobile pharmacy medications and/or prescriptions provided. Belongings/home medications returned.
[2024-02-26] MEDS: warfarin 1 mg Tablet 3 MG PO (14:51)
== END 2024-02-26 17:42 | disposition home health service (06) | DRG 291 ==
LOC: ER 16:04 → ICU 16:40 → MEDSURG 02-09 18:29 → ICU 02-18 17:49 → MEDSURG 02-21 16:55 → ICU 02-23 00:19 → MEDSURG 02-25 16:19
PROVIDERS: Internal Medicine; Admitting Provider Internal Medicine; Emergency Provider Emergency Medicine; PCP Nurse Practitioner Family; Visit Provider Student in an Organized Health Care Education/Training Program
DX: I11.0 Hypertensive heart disease with heart failure (principal); I50.33 Acute on chronic diastolic (congestive) heart failure; J15.212 Pneumonia due to Methicillin resistant Staphylococcus aureus; J80 Acute respiratory distress syndrome; L03.115 Cellulitis of right lower limb; J44.1 Chronic obstructive pulmonary disease with (acute) exacerbation; J44.0 Chronic obstructive pulmonary disease with (acute) lower respiratory infection; Z68.42 Body mass index [BMI] 45.0-49.9, adult; F33.9 Major depressive disorder, recurrent, unspecified; E87.3 Alkalosis; G47.33 Obstructive sleep apnea (adult) (pediatric); E78.5 Hyperlipidemia, unspecified; E66.01 Morbid (severe) obesity due to excess calories; F41.9 Anxiety disorder, unspecified; I48.91 Unspecified atrial fibrillation; R79.1 Abnormal coagulation profile; I16.0 Hypertensive urgency; G31.84 Mild cognitive impairment of uncertain or unknown etiology; E87.6 Hypokalemia; Z79.82 Long term (current) use of aspirin; Z79.01 Long term (current) use of anticoagulants; Z11.52 Encounter for screening for COVID-19; Z95.2 Presence of prosthetic heart valve; Z99.81 Dependence on supplemental oxygen; Z87.01 Personal history of pneumonia (recurrent); Z87.891 Personal history of nicotine dependence
CPT/HCPCS: 36415; 36416; 36600; 51702; 71045; 71275; 80048; 80051; 80053; 80202; 82330; 82803; 82805; 82962; 83036; 83615; 83735; 83880; 84145; 84443; 84484; 85025; 85378; 85610; 86140; 86403; 87040; 87070; 87077; 87186; 87205; 87449; 87486; 87581; 87633; 87798; 92523; 92526; 92610; 93005; 93306; 93970; 94640; 94660; 94664; 94669; 94760; 96365; 96367; 96372; 96374; 96376; 97110; 97116; 97162; 97167; 97530; 97535; 99285; 99291; C9113; J0456; J0692; J0696; J2060; J2405; J2919; J3370; J3490; J7030; J7050; J7060; J7512; J7608; J7613; Q9967

== ENCOUNTER 2024-04-14 09:07 | Outpatient (CLI) | payer MEDICARE, MEDICAID, SELFPAY ==
[2022-11-21 10:41] VITALS: BP 143/71; BMI 56.5
--- NOTE | 2024-04-14 09:13 | USCV_ITS ---
Daisy Corey Age: 63 Gender: F : 1960 Exam Date: 04/14/2024 10:15 Ordering Phys: Earnest Jose DO Technologist: Exam Location: [facility] [place] Indication: chf as BP: 120 / 70 HR: 72 Rhythm: Sinus Technical Quality: Adequate MEASUREMENTS (Male / Female) Normal Values 2D ECHO LV Diastolic Diameter PLAX 4.1 cm 4.2 - 5.9 / 3.9 - 5.3 cm IVS Diastolic Thickness 1.1 cm 0.6 - 1.0 / 0.6 - 0.9 cm IVS Systolic Thickness 1.4 cm LVPW Diastolic Thickness 1.6 cm 0.6 - 1.0 / 0.6 - 0.9 cm LVPW Systolic Thickness 1.5 cm LV Ejection Fraction 2D Teich 43.0 % LV Ejection Fraction MOD 4C 59.0 % LV Ejection Fraction MOD 2C 65.6 % LV Ejection Fraction 2C AL 65.9 % LA Diameter 2.1 cm RA Systolic Volume 4C AL 62.8 ml RA Systolic Volume 4C MOD 62.6 ml IVC Diameter 1.8 cm M-MODE LA Ao Ratio MM 1.7 AV Cusp Separation MM 2.0 cm DOPPLER AV Peak Velocity 282.8 cm/s LVOT Peak Velocity 98.0 cm/s MV Peak Velocity 129.0 cm/s MV Area PHT 2.8 cm squared Mitral E to A Ratio 1.1 TR Peak Velocity 286.0 cm/s TR Peak Gradient 32.7 mmHg TV Peak E Velocity 87.0 cm/s PV Peak Velocity 115.0 cm/s FINDINGS Left Ventricle Possibly normal LV size and ejection fraction. 65%. Segmental wall motion analysis difficult because of the poor ultrasonic windows.Grade II/IV diastolic dysfunction, moderately elevated filling pressures. Right Ventricle Possibly normal RV size and ejection fraction. Right Atrium Mildly increased right atrial size. Left Atrium Mildly increased left atrial size. Mitral Valve Moderate mitral annular calcification. Thickened mitral valve. Aortic Valve Peak velocity across the aortic valve was 2.9 m/s. Peak gradient of 34 and a mean gradient of 16 mmHg. Features are suggestive of mild aortic valve stenosis Tricuspid Valve No gross abnormality noted Pulmonic Valve Pulmonic valve not well visualized. Pericardium No pericardial effusion. Aorta Normal aortic annulus size. IVC Inferior vena cava not visualized. CONCLUSIONS Possibly normal LV size and ejection fraction-65%. Segmental wall motion analysis difficult because of the poor ultrasonic windows. Type II diastolic dysfunction. Possibly normal RV size and ejection fraction. Mild biatrial enlargement. Thickened mitral valve with moderate mitral annular calcification. Peak velocity across the aortic valve was 2.9 m/s. Peak gradient of 34 and a mean gradient of 16 mmHg. Features are suggestive of mild aortic valve stenosis. There is no pericardial effusion. Technically difficult study because of the poor ultrasonic window. Dr Swetha Benitez MD FACC (Electronically Signed) Final Date: 29 April 2024 09:19 S
== END 2024-04-14 09:08 | disposition home or self-care (01) ==
LOC: RAD 09:08
PROVIDERS: PCP Nurse Practitioner Family; Visit Provider Family Medicine
DX: I50.9 Heart failure, unspecified (principal); I51.7 Cardiomegaly; I05.9 Rheumatic mitral valve disease, unspecified; I05.8 Other rheumatic mitral valve diseases
CPT/HCPCS: 93306

== ENCOUNTER 2024-04-26 16:25 | Outpatient (CLI) | payer MEDICARE, MEDICAID, SELFPAY ==
[2022-11-21 10:41] VITALS: BP 143/71; BMI 56.5
[2024-04-26 17:34] LABS: INR 3.68 (0.8-1.2)
== END 2024-04-26 16:26 | disposition home or self-care (01) ==
LOC: LAB 16:27
PROVIDERS: PCP Nurse Practitioner Family; Visit Provider Internal Medicine
DX: Z95.2 Presence of prosthetic heart valve (principal)
CPT/HCPCS: 36415; 85610

== ENCOUNTER → 2024-05-12 12:14 | Outpatient (BNVA) | payer MEDICARE, MEDICAID, SELFPAY ==
[2022-11-21 10:41] VITALS: BP 143/71; BMI 56.5
== END ==
PROVIDERS: PCP Nurse Practitioner Family; Visit Provider Internal Medicine
DX: I10 Essential (primary) hypertension (principal); Z95.2 Presence of prosthetic heart valve; Z79.01 Long term (current) use of anticoagulants; E66.01 Morbid (severe) obesity due to excess calories; Z68.43 Body mass index [BMI] 50.0-59.9, adult; E78.5 Hyperlipidemia, unspecified; F17.201 Nicotine dependence, unspecified, in remission; J44.9 Chronic obstructive pulmonary disease, unspecified
CPT/HCPCS: 36415; 80048; 83880; 99214

== ENCOUNTER 2024-05-27 15:28 | Emergency (ER) | payer MEDICARE, MEDICAID, SELFPAY ==
[2022-11-21 10:41] VITALS: BP 143/71; BMI 56.5
[2024-05-27] VITALS (8 sets, daily range): BP systolic 116–138; BP diastolic 55–73; PULSE 72–81; RESP 13–17; TEMP 36.8; O2SAT 92–100; BMI 46.6
--- NOTE | 2024-05-27 15:28 | ECG_ITS ---
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 Measurements Intervals Richards Rate: 80 P: 51 TX: 167 QRS: 15 QRSD: 118 T: 120 QT: 337 QTc: 391 Interpretive Statements SINUS RHYTHM WITH OCCASIONAL SUPRAVENTRICULAR PREMATURE COMPLEXES MODERATE INTRAVENTRICULAR CONDUCTION DELAY [110+ ms QRS DURATION] NONSPECIFIC ST & T-WAVE ABNORMALITY Compared to ECG 02/11/2024 07:53:29 Short TX interval no longer present Possible ischemia no longer present T-wave abnormality still present Electronically Signed On 05-28-2024 07:41:52 CDT by Jhonatan Cabral M.D. [email or web address]
--- NOTE | 2024-05-27 15:42 | XRR_ITS ---
PROCEDURE INFORMATION: Exam: XR Chest Exam date and time: 05/27/2024 4:15 PM Age: 63 years old Clinical indication: Pain; Chest pressure; Additional info: Chest pain TECHNIQUE: Imaging protocol: Radiologic exam of the chest. Views: 1 view. COMPARISON: CR XR chest 1V portable [id number] 02/21/2024 7:53 AM FINDINGS: Lungs: Unremarkable. No consolidation. Pleural spaces: Unremarkable. No pleural effusion. No pneumothorax. Heart/Mediastinum: Heart is upper limits of normal in size. Vasculature: There is calcified plaque in the aortic arch. Bones/joints: There are degenerative changes in the thoracic spine and across the acromioclavicular joints. Other findings: There are post-sternotomy changes and postoperative changes overlying the mediastinum. XR/XR chest 1V portable [id number] IMPRESSION: No acute findings.Non acute findings as described above.
--- NOTE | 2024-05-27 15:44 | W.ED.CHESTPA ---
Documented by User: Fracisco Hanley DO 05/31/24 06:41 HPI - Chest Pain General: Chief Complaint: Chest Pain Stated Complaint: cp Time Seen by Provider: 05/27/24 15:42 History of Present Illness: 63-year-old female presents emergency room with complaint of chest pain that began around 11:00 today. She woke up with chest pain. She does have a history of COPD and typically uses 5 L/min by nasal cannula. Vague chest discomfort now denies fever or productive cough Associated symptoms: Reports dyspnea; Deny abdominal pain or fever(s) Related Data Home Medications Medication Instructions Recorded Confirmed albuterol sulfate 90 mcg/actuation 2 puff inhalation Q6H PRN 12/06/19 05/12/24 aerosol inhaler (ProAir HFA) shortness of breath aspirin 81 mg tablet,delayed 81 mg PO DAILY 12/06/19 05/12/24 release (Adult Low Dose Aspirin) gabapentin 300 mg capsule 300 mg PO TID 12/06/19 05/12/24 atorvastatin 20 mg tablet 20 mg PO DAILY 02/11/20 05/12/24 oxygen-air delivery systems 03/13/22 05/12/24 budesonide 160 mcg-glycopyr 9 2 inh inhalation BID 03/22/22 05/12/24 mcg-formot 4.8 mcg/actuation HFA inhaler (Breztri Aerosphere) ferrous sulfate 325 mg (65 mg 325 mg PO DAILY 03/22/22 05/12/24 iron) tablet (Tommy-Time) levothyroxine 112 mcg capsule 112 mcg PO DAILY 12/31/22 05/12/24 potassium chloride 20 mEq 20 meq PO DAILY 10/02/23 05/12/24 tablet,extended release(part/cryst) (Klor-Con M) benzonatate 100 mg capsule 100 mg PO TID PRN Cough 02/09/24 05/12/24 hydroxyzine pamoate 25 mg capsule 25 mg PO TID PRN Anxiety 02/09/24 05/12/24 prednisone 10 mg tablet 10 mg PO DAILY 02/09/24 05/12/24 roflumilast 500 mcg tablet 500 mcg PO DAILY 02/09/24 05/12/24 theophylline 400 mg 400 mg PO DAILY 02/09/24 05/12/24 tablet,extended release 24 hr warfarin 4 mg tablet 4 mg PO Q7D 02/09/24 05/26/24 ascorbic acid (vitamin C) 1,000 mg 1 g PO DAILY 05/12/24 05/12/24 tablet cyclobenzaprine 10 mg tablet 10 mg PO BID PRN 05/12/24 05/12/24 fluticasone propionate 50 2 spray intranasal DAILY 05/12/24 05/12/24 mcg/actuation nasal spray,suspension ipratropium bromide 0.02 % 0.5 mg inhalation Q6H 05/12/24 05/12/24 solution for inhalation nystatin 100,000 unit/gram topical 1 applic topical DAILY 05/12/24 05/12/24 cream Previous Rx's Medication Instructions Recorded amlodipine 5 mg tablet 5 mg PO DAILY #90 tabs 09/06/20 warfarin 3 mg tablet See Rx Instructions .Route 09/19/23 .COMPLEX #90 tabs brexpiprazole 2 mg tablet See Rx Instructions .Route 12/12/23 .COMPLEX #30 tabs duloxetine 60 mg capsule,delayed See Rx Instructions .Route 12/12/23 release .COMPLEX #60 ea bumetanide 2 mg tablet 4 mg (2 x 2 mg) PO BID #360 tabs 05/12/24 Allergies Allergy/AdvReac Type Severity Reaction Status Date / Time Penicillins Allergy Unknown Verified 05/27/24 15:40 Review of Systems Const: Denies: fever(s) or chills Card: Reports: chest pain Resp: Reports: dyspnea GI: Denies: abdominal pain : Denies: dysuria, urinary frequency or urinary urgency Musc: Denies: neck pain or back pain Skin/Breast: Denies: rash PFSH ED PFSH: Medical History Psychiatric care Dyslipidemia Morbid obesity Venous stasis Tobacco abuse, in remission HTN (hypertension) Anticoagulant long-term use GUS (obstructive sleep apnea) Oxygen dependent COPD (chronic obstructive pulmonary disease) Major depressive disorder, recurrent, severe with psychotic symptoms Surgical History H/O mechanical aortic valve replacement Family History Other CAD (coronary artery disease) Dementia Diabetes Hypertension Social History (Reviewed 05/31/24 @ 06:41 by BRIGIDA Sow Smoking and tobacco/nicotine status: former use of tobacco/nicotine Second hand smoke exposure: No Alcohol intake: never Substance/Drug Use: never Adopted: No Caregiver/support person: No Lives independently: Yes Household members: spouse Housing: House Marital status: Marital status details: for 36 years Number of children: 2 Number of grandchildren: 0 Highest education level completed: 10th Grade Current occupational status: disabled Pets and animals: Yes Pets & animals: dog(s) Leisure activites: reading and other Leisure activities details: alona Sexually active: Yes Do you think of yourself as: Straight/Heterosexual Current gender identity: Female Abbi/Yazdanism: Scientology Special abbi needs: No Agree to transfusion: Yes Female Reproductive History: Para: 2 Physical Exam Const: GENERAL APPEARANCE: cooperative ORIENTATION/CONSCIOUSNESS: Yes awake, Yes oriented to person, Yes oriented to place and Yes oriented to time HENMT: COMMON NORMALS: normocephalic, atraumatic and hearing grossly normal bilaterally HEAD & SCALP: normocephalic and atraumatic Resp: COMMON NORMALS: normal respiratory effort, No retractions, No use of accessory muscles and clear to auscultation bilaterally AUSCULTATION: clear to auscultation bilaterally Cardio: COMMON NORMALS: regular rate, regular rhythm and No murmurs present (Cardio) RATE: regular rate RHYTHM: regular rhythm GI: COMMON NORMALS: Soft to palpation and No hepatosplenomegaly present AUSCULTATION: Yes normoactive bowel sounds PALPATION: Yes Soft to palpation, No Tenderness to palpation present (GI), No Guarding due to palpation present (GI) and Yes No hepatosplenomegaly present Extremity: COMMON NORMALS: normal to inspection, capillary refill normal, no clubbing, cyanosis or edema, no calf tenderness and no pedal edema Neuro: SENSORIUM/ORIENTATION: Yes oriented to person, Yes oriented to place and Yes oriented to time Skin: COMMON NORMALS: no rashes or lesions noted GENERAL SKIN EXAM: no rashes or lesions noted Course Vital Signs: Vital signs: Vital Signs Temperature 98.3 F 05/27/24 15:29 Pulse Rate 72 05/27/24 20:24 Respiratory Rate 13 05/27/24 20:24 Blood Pressure 120/57 05/27/24 20:24 Pulse Oximetry 92 05/27/24 20:24 Oxygen Delivery Me thod Room Air 05/27/24 20:08 Oxygen Flow Rate 4 05/27/24 17:49 MDM - Chest Pain Medical Decision Making Care signed out to Dr. Johnson at change of shift. See final notes for diagnosis and disposition. Patient transferred over my care shift change, waiting for lab, once lab work was back went discussed this with the patient. Initial troponin was less than 6, 2-hour troponin was 6, patient is feeling much better. Patient does have oxygen due to her car now. Patient was given the option of staying overnight and patient for her chest pain or going home. Patient chose to go home and she knows if she has worsening chest pain or chest pain returns she will have to come back immediately. Patient still shows this option and is willing to take the risks. Patient be discharged home. Lab Data 05/27/24 16:01 05/27/24 16:01 Radiology Impressions Chest X-Ray 05/27/24 15:42 IMPRESSION: No acute findings.Non acute findings as described above. Laboratory Results WBC 13.91 10^3/uL (3.29-11.43) H 05/27/24 16:01 RBC 4.18 10^6/uL (3.85-5.65) 05/27/24 16:01 Hgb 10.70 g/dL (11.27-16.99) L 05/27/24 16:01 Hct 34.7 % (36-47) L 05/27/24 16:01 MCV 83.0 fl (85-98) L 05/27/24 16:01 MCH 25.6 pg (27-33) L 05/27/24 16:01 MCHC 30.8 g/dL (30-55) 05/27/24 16:01 RDW 14.8 % (12.1-15.1) 05/27/24 16:01 Plt Count 358 10^3/cmm (157-399) 05/27/24 16:01 MPV 9.4 fL (7.4-10.4) 05/27/24 16:01 Neut % (Auto) 84.6 % 05/27/24 16:01 Lymph % (Auto) 9.4 % 05/27/24 16:01 Knox % (Auto) 4.0 % 05/27/24 16:01 Eos % (Auto) 1.2 % 05/27/24 16:01 Baso % (Auto) 0.4 % 05/27/24 16:01 Neut # (Auto) 11.78 10^3/uL (1.8-7.7) H 05/27/24 16:01 Lymph # (Auto) 1.3 10^3/uL (0.8-4.8) 05/27/24 16:01 Knox # (Auto) 0.6 10^3/uL (0.2-0.9) 05/27/24 16:01 Eos # (Auto) 0.2 10^3/uL (0.0-0.8) 05/27/24 16:01 Baso # (Auto) 0.1 10^3/uL (0.0-0.1) 05/27/24 16:01 Nucleated RBC % (auto) 0 % 05/27/24 16:01 Nucleated RBCs # 0.0 /100WBC 05/27/24 16: PT 22.70 SECONDS (12.1-14.9) H 05/27/24 16:01 INR 1.93 (0.8-1.2) H 05/27/24 16:01 Sodium 144 mmol/L (136-145) 05/27/24 16:01 Potassium 3.6 mmol/L (3.5-5.1) 05/27/24 16:01 Chloride 94 mmol/L (98-107) L 05/27/24 16:01 Carbon Dioxide 38 mmol/L (22-29) H 05/27/24 16:01 Anion Gap 15.6 (5-19) 05/27/24 16:01 BUN 21 mg/dL (8-23) 05/27/24 16:01 Creatinine 0.7 mg/dL (0.5-0.9) 05/27/24 16:01 GFR Calculation 84.8 mL/min (90-130) L 05/27/24 16:01 Glucose 130 mg/dL (65-115) H 05/27/24 16:01 Calculated Osmolality 303 mOsm/kg (285-295) H 05/27/24 16:01 Calcium 9.2 mg/dL (8.5-10.5) 05/27/24 16:01 Total Bilirubin 0.5 mg/dL (0.15-1.2) 05/27/24 16:01 AST 14 U/L (0-32) 05/27/24 16:01 ALT 10 U/L (0-33) 05/27/24 16:01 Alkaline Phosphatase 115 U/L (35-105) H 05/27/24 16:01 Creatine Kinase 34 U/L (26-192) 05/27/24 16:01 Troponin T Baseline < 6 ng/L (0-10) 05/27/24 16:01 Troponin T 120 Minute 6.00 ng/L (0-10) 05/27/24 17:50 Delta Troponin T 0.99775 ABS# (0-10) 05/27/24 17:50 NT-Pro-B Natriuret Pep 206 pg/mL (0-125) H 05/27/24 16:01 Total Protein 7.1 g/dL (6.6-8.7) 05/27/24 16:01 Albumin 4.1 g/dL (3.5-5.2) 05/27/24 16:01 Globulin 3.0 g/dL (1.3-4.6) 05/27/24 16:01 Discharge Plan Discharge Patient Disposition: Home Clinical Impression: Chest pain Qualifiers: Chest pain type: unspecified Qualified Code(s): R07.9 - Chest pain, unspecified Condition: Stable Prescriptions: No Action atorvastatin 20 mg tablet 20 mg PO DAILY aspirin [Adult Low Dose Aspirin] 81 mg tablet,delayed release (DR/EC) 81 mg PO DAILY gabapentin 300 mg capsule 300 mg PO TID albuterol sulfate [ProAir HFA] 90 mcg/actuation HFA aerosol inhaler 2 puff INHALATION Q6H PRN (Reason: shortness of breath ) amlodipine 5 mg tablet 5 mg PO DAILY Qty: 90 3RF Breztri Aerosphere 160-9-4.8 mcg/actuation HFA aerosol inhaler 2 inh inhalation BID ferrous sulfate [Tommy-Time] 325 mg (65 mg iron) tablet 325 mg PO DAILY levothyroxine 112 mcg capsule 112 mcg PO DAILY ascorbic acid (vitamin C) 1,000 mg tablet 1 g PO DAILY cyclobenzaprine 10 mg tablet 10 mg PO BID PRN fluticasone propionate 50 mcg/actuation spray,suspension 2 spray intranasal DAILY Rx Instructions: administer into each nostril ipratropium bromide 0.02 % solution 0.5 mg inhalation Q6H nystatin 100,000 unit/gram cream 1 applic topical DAILY bumetanide 2 mg tablet 4 mg PO BID Qty: 360 3RF (DME) oxygen-air delivery systems Device See Rx Instructions .Route Rx Instructions: As directed potassium chloride [Klor-Con M20] 20 mEq tablet,ER particles/crystals 20 meq PO DAILY brexpiprazole 2 mg tablet See Rx Instructions .ROUTE .COMPLEX Qty: 30 5RF Dose Instruction: Take 1 tablet by mouth once daily Rx Instructions: Take 1 tablet by mouth once daily duloxetine 60 mg capsule,delayed release(DR/EC) See Rx Instructions .ROUTE .COMPLEX Qty: 60 5RF Hold Instructions: Resume on 03/04/24. resume after completing linezolid course Dose Instruction: Take 1 capsule by mouth twice daily Rx Instructions: Take 1 capsule by mouth twice daily warfarin 3 mg tablet See Rx Instructions .ROUTE .COMPLEX Qty: 90 3RF Protocol: Dose Management Condition: Friday Dose/Route: 4 mg Instruction: 1 x 4 mg tablet Condition: Friday Dose/Route: 0 mg Instruction: 0 tablets Condition: Friday Dose/Route: 2 mg Instruction: 0.5 x 4 mg tablets Condition: Friday Dose/Route: 4 mg Instruction: 1 x 4 mg tablet Condition: Dose/Route: 2 mg Instruction: 0.5 x 4 mg tablets Condition: Friday Dose/Route: 4 mg Instruction: 1 x 4 mg tablet Condition: Friday Dose/Route: 4 mg Instruction: 1 x 4 mg tablet Protocol Text: Adjustment Start Date: Friday05/26/24 INR Value: 4.0 INR Date: 05/24/24 Recheck Date: 06/02/24 Dose Instruction: TAKE 1 TABLET BY MOUTH EVERY DAY Rx Instructions: TAKE 1 TABLET BY MOUTH EVERY DAY prednisone 10 mg tablet 10 mg PO DAILY theophylline 400 mg tablet extended release 24 hr 400 mg PO DAILY benzonatate 100 mg capsule 100 mg PO TID PRN (Reason: Cough) roflumilast 500 mcg tablet 500 mcg PO DAILY warfarin 4 mg tablet 4 mg PO Q7D Protocol: Dose Management Condition: Friday Dose/Route: 4 mg Instruction: 1 x 4 mg tablet Condition: Friday Dose/Route: 0 mg Instruction: 0 tablets Condition: Friday Dose/Route: 2 mg Instruction: 0.5 x 4 mg tablets Condition: Friday Dose/Route: 4 mg Instruction: 1 x 4 mg tablet Condition: Dose/Route: 2 mg Instruction: 0.5 x 4 mg tablets Condition: Friday Dose/Route: 4 mg Instruction: 1 x 4 mg tablet Condition: Friday Dose/Route: 4 mg Instruction: 1 x 4 mg tablet Protocol Text: Adjustment Start Date: Friday05/26/24 INR Value: 4.0 INR Date: 05/24/24 Recheck Date: 06/02/24 Rx Instructions: FRIDAY hydroxyzine pamoate 25 mg capsule 25 mg PO TID PRN (Reason: Anxiety) Discharge Orders: Discharge ED (Routine); Ordered 05/27/24 Ordered By: Christopher Johnson Referrals: Mita Carvajal FNP [Primary Care Provider] - 1 week Patient Instructions: Chest Pain (ED) Activity Restrictions/Additional Instructions: Your cardiac troponins come back normal. You have chosen to go home. He will be discharged from the ER. He for chest pain or worsens please feel free to return to the nearest ER as things may change or progress. Otherwise follow-up with your family practice physician within next 7 to 10 days for further evaluation and treatment. Thank you for choosing [facility] for your healthcare needs today. Please realize that you were seen in the emergency department and that we are providing you with an emergency medical screening exam and this may not be a complete and all exclusive of all testing and/or medical workup we may need to determine your element or severity of your illness. It is very important that you follow-up as instructed with your primary care provider or specialist for the additional evaluation and to discuss your medical treatment plan. You may return to the emergency department should you have concerns or if your condition changes or worsens in any way. Coding Level of Care Code ED Car Park Attendant for Chg Fwd Documented by User: Christopher Johnson DO 05/28/24 00:35 HPI - Chest Pain General: Chief Complaint: Chest Pain Stated Complaint: cp Time Seen by Provider: 05/27/24 15:42 Related Data Home Medications Medication Instructions Recorded Confirmed albuterol sulfate 90 mcg/actuation 2 puff inhalation Q6H PRN 12/06/19 05/12/24 aerosol inhaler (ProAir HFA) shortness of breath aspirin 81 mg tablet,delayed 81 mg PO DAILY 12/06/19 05/12/24 release (Adult Low Dose Aspirin) gabapentin 300 mg capsule 300 mg PO TID 12/06/19 05/12/24 atorvastatin 20 mg tablet 20 mg PO DAILY 02/11/20 05/12/24 oxygen-air delivery systems 03/13/22 05/12/24 budesonide 160 mcg-glycopyr 9 2 inh inhalation BID 03/22/22 05/12/24 mcg-formot 4.8 mcg/actuation HFA inhaler (Breztri Aerosphere) ferrous sulfate 325 mg (65 mg 325 mg PO DAILY 03/22/22 05/12/24 iron) tablet (Tommy-Time) levothyroxine 112 mcg capsule 112 mcg PO DAILY 12/31/22 05/12/24 potassium chloride 20 mEq 20 meq PO DAILY 10/02/23 05/12/24 tablet,extended release(part/cryst) (Klor-Con M) benzonatate 100 mg capsule 100 mg PO TID PRN Cough 02/09/24 05/12/24 hydroxyzine pamoate 25 mg capsule 25 mg PO TID PRN Anxiety 02/09/24 05/12/24 prednisone 10 mg tablet 10 mg PO DAILY 02/09/24 05/12/24 roflumilast 500 mcg tablet 500 mcg PO DAILY 02/09/24 05/12/24 theophylline 400 mg 400 mg PO DAILY 02/09/24 05/12/24 tablet,extended release 24 hr warfarin 4 mg tablet 4 mg PO Q7D 02/09/24 05/26/24 ascorbic acid (vitamin C) 1,000 mg 1 g PO DAILY 05/12/24 05/12/24 tablet cyclobenzaprine 10 mg tablet 10 mg PO BID PRN 05/12/24 05/12/24 fluticasone propionate 50 2 spray intranasal DAILY 05/12/24 05/12/24 mcg/actuation nasal spray,suspension ipratropium bromide 0.02 % 0.5 mg inhalation Q6H 05/12/24 05/12/24 solution for inhalation nystatin 100,000 unit/gram topical 1 applic topical DAILY 05/12/24 05/12/24 cream Previous Rx's Medication Instructions Recorded amlodipine 5 mg tablet 5 mg PO DAILY #90 tabs 09/06/20 warfarin 3 mg tablet See Rx Instructions .Route 09/19/23 .COMPLEX #90 tabs brexpiprazole 2 mg tablet See Rx Instructions .Route 12/12/23 .COMPLEX #30 tabs duloxetine 60 mg capsule,delayed See Rx Instructions .Route 12/12/23 release .COMPLEX #60 ea bumetanide 2 mg tablet 4 mg (2 x 2 mg) PO BID #360 tabs 05/12/24 Allergies Allergy/AdvReac Type Severity Reaction Status Date / Time Penicillins Allergy Unknown Verified 05/27/24 15:40 PFSH ED PFSH: Medical History Psychiatric care Dyslipidemia Morbid obesity Venous stasis Tobacco abuse, in remission HTN (hypertension) Anticoagulant long-term use GUS (obstructive sleep apnea) Oxygen dependent COPD (chronic obstructive pulmonary disease) Major depressive disorder, recurrent, severe with psychotic symptoms Surgical History H/O mechanical aortic valve replacement Family History Other CAD (coronary artery disease) Dementia Diabetes Hypertension Social History Smoking and tobacco/nicotine status: former use of tobacco/nicotine Second hand smoke exposure: No Alcohol intake: never Substance/Drug Use: never Adopted: No Caregiver/support person: No Lives independently: Yes Household members: spouse Housing: House Marital status: Marital status details: for 36 years Number of children: 2 Number of grandchildren: 0 Highest education level completed: 10th Grade Current occupational status: disabled Pets and animals: Yes Pets & animals: dog(s) Leisure activites: reading and other Leisure activities details: alona Sexually active: Yes Do you think of yourself as: Straight/Heterosexual Current gender identity: Female Abbi/Yazdanism: Scientology Special abbi needs: No Agree to transfusion: Yes Course Vital Signs: Vital signs: Vital Signs Temperature 98.3 F 05/27/24 15:29 Pulse Rate 72 05/27/24 20:24 Respiratory Rate 13 05/27/24 20:24 Blood Pressure 120/57 05/27/24 20:24 Pulse Oximetry 92 05/27/24 20:24 Oxygen Delivery Me thod Room Air 05/27/24 20:08 Oxygen Flow Rate 4 05/27/24 17:49 MDM - Chest Pain Medical Decision Making Patient transferred over my care shift change, waiting for lab, once lab work was back went discussed this with the patient. Initial troponin was less than 6, 2-hour troponin was 6, patient is feeling much better. Patient does have oxygen due to her car now. Patient was given the option of staying overnight and patient for her chest pain or going home. Patient chose to go home and she knows if she has worsening chest pain or chest pain returns she will have to come back immediately. Patient still shows this option and is willing to take the risks. Patient be discharged home. Lab Data 05/27/24 16:01 05/27/24 16:01 Radiology Impressions Chest X-Ray 05/27/24 15:42 IMPRESSION: No acute findings.Non acute findings as described above. Laboratory Results WBC 13.91 10^3/uL (3.29-11.43) H 05/27/24 16:01 RBC 4.18 10^6/uL (3.85-5.65) 05/27/24 16:01 Hgb 10.70 g/dL (11.27-16.99) L 05/27/24 16:01 Hct 34.7 % (36-47) L 05/27/24 16:01 MCV 83.0 fl (85-98) L 05/27/24 16:01 MCH 25.6 pg (27-33) L 05/27/24 16:01 MCHC 30.8 g/dL (30-55) 05/27/24 16:01 RDW 14.8 % (12.1-15.1) 05/27/24 16:01 Plt Count 358 10^3/cmm (157-399) 05/27/24 16:01 MPV 9.4 fL (7.4-10.4) 05/27/24 16:01 Neut % (Auto) 84.6 % 05/27/24 16:01 Lymph % (Auto) 9.4 % 05/27/24 16:01 Knox % (Auto) 4.0 % 05/27/24 16:01 Eos % (Auto) 1.2 % 05/27/24 16:01 Baso % (Auto) 0.4 % 05/27/24 16:01 Neut # (Auto) 11.78 10^3/uL (1.8-7.7) H 05/27/24 16:01 Lymph # (Auto) 1.3 10^3/uL (0.8-4.8) 05/27/24 16:01 Knox # (Auto) 0.6 10^3/uL (0.2-0.9) 05/27/24 16:01 Eos # (Auto) 0.2 10^3/uL (0.0-0.8) 05/27/24 16:01 Baso # (Auto) 0.1 10^3/uL (0.0-0.1) 05/27/24 16:01 Nucleated RBC % (auto) 0 % 05/27/24 16:01 Nucleated RBCs # 0.0 /100WBC 05/27/24 16:01 PT 22.70 SECONDS (12.1-14.9) H 05/27/24 16:01 INR 1.93 (0.8-1.2) H 05/27/24 16:01 Sodium 144 mmol/L (136-145) 05/27/24 16:01 Potassium 3.6 mmol/L (3.5-5.1) 05/27/24 16:01 Chloride 94 mmol/L (98-107) L 05/27/24 16:01 Carbon Dioxide 38 mmol/L (22-29) H 05/27/24 16:01 Anion Gap 15.6 (5-19) 05/27/24 16:01 BUN 21 mg/dL (8-23) 05/27/24 16:01 Creatinine 0.7 mg/dL (0.5-0.9) 05/27/24 16:01 GFR Calculation 84.8 mL/min (90-130) L 05/27/24 16:01 Glucose 130 mg/dL (65-115) H 05/27/24 16:01 Calculated Osmolality 303 mOsm/kg (285-295) H 05/27/24 16:01 Calcium 9.2 mg/dL (8.5-10.5) 05/27/24 16:01 Total Bilirubin 0.5 mg/dL (0.15-1.2) 05/27/24 16:01 AST 14 U/L (0-32) 05/27/24 16:01 ALT 10 U/L (0-33) 05/27/24 16:01 Alkaline Phosphatase 115 U/L (35-105) H 05/27/24 16:01 Creatine Kinase 34 U/L (26-192) 05/27/24 16:01 Troponin T Baseline < 6 ng/L (0-10) 05/27/24 16:01 Troponin T 120 Minute 6.00 ng/L (0-10) 05/27/24 17:50 Delta Troponin T 0.09070 ABS# (0-10) 05/27/24 17:50 NT-Pro-B Natriuret Pep 206 pg/mL (0-125) H 05/27/24 16:01 Total Protein 7.1 g/dL (6.6-8.7) 05/27/24 16:01 Albumin 4.1 g/dL (3.5-5.2) 05/27/24 16:01 Globulin 3.0 g/dL (1.3-4.6) 05/27/24 16:01 All radiology interpretation(s) finalized by discharge Discharge Plan Discharge Patient Disposition: Home Clinical Impression: Chest pain Qualifiers: Chest pain type: unspecified Qualified Code(s): R07.9 - Chest pain, unspecified Condition: Stable Prescriptions: No Action atorvastatin 20 mg tablet 20 mg PO DAILY aspirin [Adult Low Dose Aspirin] 81 mg tablet,delayed release (DR/EC) 81 mg PO DAILY gabapentin 300 mg capsule 300 mg PO TID albuterol sulfate [ProAir HFA] 90 mcg/actuation HFA aerosol inhaler 2 puff INHALATION Q6H PRN (Reason: shortness of breath ) amlodipine 5 mg tablet 5 mg PO DAILY Qty: 90 3RF Breztri Aerosphere 160-9-4.8 mcg/actuation HFA aerosol inhaler 2 inh inhalation BID ferrous sulfate [Tommy-Time] 325 mg (65 mg iron) tablet 325 mg PO DAILY levothyroxine 112 mcg capsule 112 mcg PO DAILY ascorbic acid (vitamin C) 1,000 mg tablet 1 g PO DAILY cyclobenzaprine 10 mg tablet 10 mg PO BID PRN fluticasone propionate 50 mcg/actuation spray,suspension 2 spray intranasal DAILY Rx Instructions: administer into each nostril ipratropium bromide 0.02 % solution 0.5 mg inhalation Q6H nystatin 100,000 unit/gram cream 1 applic topical DAILY bumetanide 2 mg tablet 4 mg PO BID Qty: 360 3RF (DME) oxygen-air delivery systems Device See Rx Instructions .Route Rx Instructions: As directed potassium chloride [Klor-Con M20] 20 mEq tablet,ER particles/crystals 20 meq PO DAILY brexpiprazole 2 mg tablet See Rx Instructions .ROUTE .COMPLEX Qty: 30 5RF Dose Instruction: Take 1 tablet by mouth once daily Rx Instructions: Take 1 tablet by mouth once daily duloxetine 60 mg capsule,delayed release(DR/EC) See Rx Instructions .ROUTE .COMPLEX Qty: 60 5RF Hold Instructions: Resume on 03/04/24. resume after completing linezolid course Dose Instruction: Take 1 capsule by mouth twice daily Rx Instructions: Take 1 capsule by mouth twice daily warfarin 3 mg tablet See Rx Instructions .ROUTE .COMPLEX Qty: 90 3RF Protocol: Dose Management Condition: Friday Dose/Route: 4 mg Instruction: 1 x 4 mg tablet Condition: Friday Dose/Route: 0 mg Instruction: 0 tablets Condition: Friday Dose/Route: 2 mg Instruction: 0.5 x 4 mg tablets Condition: Friday Dose/Route: 4 mg Instruction: 1 x 4 mg tablet Condition: Dose/Route: 2 mg Instruction: 0.5 x 4 mg tablets Condition: Friday Dose/Route: 4 mg Instruction: 1 x 4 mg tablet Condition: Friday Dose/Route: 4 mg Instruction: 1 x 4 mg tablet Protocol Text: Adjustment Start Date: Friday05/26/24 INR Value: 4.0 INR Date: 05/24/24 Recheck Date: 06/02/24 Dose Instruction: TAKE 1 TABLET BY MOUTH EVERY DAY Rx Instructions: TAKE 1 TABLET BY MOUTH EVERY DAY prednisone 10 mg tablet 10 mg PO DAILY theophylline 400 mg tablet extended release 24 hr 400 mg PO DAILY benzonatate 100 mg capsule 100 mg PO TID PRN (Reason: Cough) roflumilast 500 mcg tablet 500 mcg PO DAILY warfarin 4 mg tablet 4 mg PO Q7D Protocol: Dose Management Condition: Friday Dose/Route: 4 mg Instruction: 1 x 4 mg tablet Condition: Friday Dose/Route: 0 mg Instruction: 0 tablets Condition: Friday Dose/Route: 2 mg Instruction: 0.5 x 4 mg tablets Condition: Friday Dose/Route: 4 mg Instruction: 1 x 4 mg tablet Condition: Dose/Route: 2 mg Instruction: 0.5 x 4 mg tablets Condition: Friday Dose/Route: 4 mg Instruction: 1 x 4 mg tablet Condition: Friday Dose/Route: 4 mg Instruction: 1 x 4 mg tablet Protocol Text: Adjustment Start Date: Friday05/26/24 INR Value: 4.0 INR Date: 05/24/24 Recheck Date: 06/02/24 Rx Instructions: FRIDAY hydroxyzine pamoate 25 mg capsule 25 mg PO TID PRN (Reason: Anxiety) Discharge Orders: Discharge ED (Routine); Ordered 05/27/24 Ordered By: Christopher Johnson Referrals: Mita Carvajal FNP [Primary Care Provider] - 1 week Patient Instructions: Chest Pain (ED) Activity Restrictions/Additional Instructions: Your cardiac troponins come back normal. You have chosen to go home. He will be discharged from the ER. He for chest pain or worsens please feel free to return to the nearest ER as things may change or progress. Otherwise follow-up with your family practice physician within next 7 to 10 days for further evaluation and treatment. Thank you for choosing [facility] for your healthcare needs today. Please realize that you were seen in the emergency department and that we are providing you with an emergency medical screening exam and this may not be a complete and all exclusive of all testing and/or medical workup we may need to determine your element or severity of your illness. It is very important that you follow-up as instructed with your primary care provider or specialist for the additional evaluation and to discuss your medical treatment plan. You may return to the emergency department should you have concerns or if your condition changes or worsens in any way. Coding Level of Care Code ED [employer] Att[employer] for Rhett Coker
[2024-05-27 16:09] LABS: Basophils # 0.1 10^3/uL (0.0-0.1); Basophils % 0.4 %; Eosinophils # 0.2 10^3/uL (0.0-0.8); Eosinophils % 1.2 %; Hematocrit 34.7 % (36-47); Lymphocytes # 1.3 10^3/uL (0.8-4.8); Lymphocytes % 9.4 %; Mean Corpuscular HGB Conc 30.8 g/dL (30-55); Mean Corpuscular Hemoglobin 25.6 pg (27-33); Mean Platelet Volume 9.4 fL (7.4-10.4); Monocytes # 0.6 10^3/uL (0.2-0.9); Neutrophils # 11.78 10^3/uL (1.8-7.7); Neutrophils % 84.6 %; Nucleated Red Blood Cells % 0 %; Platelet Count 358 10^3/cmm (157-399); Red Blood Count 4.18 10^6/uL (3.85-5.65); Red Cell Distribution Width 14.8 % (12.1-15.1); White Blood Count 13.91 10^3/uL (3.29-11.43)
[2024-05-27 16:27] LABS: Troponin(5th) Baseline < 6 ng/L (0-10)
[2024-05-27 16:45] LABS: Alanine Aminotransferase 10 U/L (0-33); Albumin Level 4.1 g/dL (3.5-5.2); Alkaline Phosphatase 115 U/L (35-105); Aspartate Amino Transferase 14 U/L (0-32); Blood Urea Nitrogen 21 mg/dL (8-23); Calcium 9.2 mg/dL (8.5-10.5); Carbon Dioxide 38 mmol/L (22-29); Chloride 94 mmol/L (98-107); Creatine Phosphokinase 34 U/L (26-192); Creatinine Clr Calc Pharmacy 115.7819; Glomerular Filtration Rate 84.8 mL/min (90-130); Glucose 130 mg/dL (65-115); NT Pro B Type Natriuretic Pept 206 pg/mL (0-125); Osmolality Calculated 303 mOsm/kg (285-295); Sodium 144 mmol/L (136-145); Total Bilirubin 0.5 mg/dL (0.15-1.2); Total Protein 7.1 g/dL (6.6-8.7)
[2024-05-27 16:47] LABS: Anion Gap 15.6 (5-19); Potassium 3.6 mmol/L (3.5-5.1)
--- NOTE | 2024-05-27 17:42 | ECG_ITS ---
[email or web address] Test Date: 2024-05-27 Pat Name: Daisy Corey Department: Room: Gender: Female Bracer: : 1960 Requested By: Fracisco Cazares Order Number: [id number] Reading MD: Jhonatan Cabral M.D. Measurements Intervals [place] Rate: 68 P: 59 TX: 149 QRS: 21 QRSD: 123 T: 133 QT: 387 QTc: 413 Interpretive Statements SINUS RHYTHM MODERATE INTRAVENTRICULAR CONDUCTION DELAY [110+ ms QRS DURATION] NONSPECIFIC ST & T-WAVE ABNORMALITY Compared to ECG 05/27/2024 15:28:42 No significant changes Electronically Signed On 05-28-2024 07:44:19 CDT by Jhonatan Cabral M.D. [email or web address]
[2024-05-27] MEDS: ipratropium-albuterol 3 mL Neb INHALATION (17:52)
[2024-05-27] MEDS: dexamethasone 10 mg/mL INJ IM (17:52)
[2024-05-27 17:59] LABS: INR 1.93 (0.8-1.2)
[2024-05-27 18:19] LABS: Troponin 5 2HR Delta 0.00001 ABS# (0-10)
== END 2024-05-27 20:25 | disposition home or self-care (01) ==
PROVIDERS: Emergency Provider Family Medicine; PCP Nurse Practitioner Family
DX: R07.9 Chest pain, unspecified (principal); Z79.82 Long term (current) use of aspirin; Z79.01 Long term (current) use of anticoagulants; Z87.891 Personal history of nicotine dependence; E78.5 Hyperlipidemia, unspecified; I10 Essential (primary) hypertension; Z99.81 Dependence on supplemental oxygen; J44.9 Chronic obstructive pulmonary disease, unspecified
CPT/HCPCS: 36415; 71045; 80053; 82550; 83880; 84484; 85025; 85610; 93005; 94640; 96372; 99285; J1100

== ENCOUNTER 2024-11-04 21:14 | Emergency (ER) | payer MEDICARE, MEDICAID, SELFPAY ==
[2022-11-21 10:41] VITALS: BP 143/71; BMI 56.5
[2024-11-04 21:14] VITALS: BP 117/65; PULSE 79; RESP 18; TEMP 35.6; O2SAT 95; BMI 46.0
--- NOTE | 2024-11-04 21:29 | W.ED.EXTPRO ---
HPI - Extremity Problem General: Chief complaint: Extremity Problem,Nontraumatic Stated complaint: knee pain Time Seen by Provider: 11/04/24 21:23 Source: patient Mode of arrival: EMS Limitations: physical limitation History of Present Illness: Patient is a 64 male who presents to ED today with a complaint of pain to the right hip, thigh and knee. Patient states the extremity felt normal when she woke up this morning but around noon today, while she was cleaning in her wheelchair, she began noticing pain. No known injury or trauma. She states she is primarily wheelchair-bound but can transfer shortly with her walker. She lives at home with her . Patient has not noticed any color or temperature changes to the extremity. She is not having back pain. She denies numbness, tingling, loss of sensation to the leg. Pain is worse with movement. MD Complaint: extremity pain Onset (ago): hour(s) Pain Consistency: constant Location: right and lower extremity Radiation: none Relieving factors: immobilization Exacerbating factors: range of motion, weight bearing, walking and palpation Associated symptoms: Deny chest pain, fever(s) or rash Related Data Home Medications ?Medication ?Instructions ?Recorded ?Confirmed albuterol sulfate 90 mcg/actuation 2 puff inhalation Q6H PRN 12/06/19 11/02/24 aerosol inhaler (ProAir HFA) shortness of breath aspirin 81 mg tablet,delayed 81 mg PO DAILY 12/06/19 11/02/24 release (Adult Low Dose Aspirin) gabapentin 300 mg capsule 300 mg PO TID 12/06/19 11/02/24 atorvastatin 20 mg tablet 20 mg PO DAILY 02/11/20 11/02/24 oxygen-air delivery systems 03/13/22 11/02/24 ferrous sulfate 325 mg (65 mg 325 mg PO DAILY 03/22/22 11/02/24 iron) tablet (Tommy-Time) levothyroxine 112 mcg capsule 112 mcg PO DAILY 12/31/22 11/02/24 potassium chloride 20 mEq 20 meq PO DAILY 10/02/23 11/02/24 tablet,extended release(part/cryst) (Klor-Con M) benzonatate 100 mg capsule 100 mg PO TID PRN Cough 02/09/24 11/02/24 prednisone 10 mg tablet 10 mg PO DAILY 02/09/24 11/02/24 roflumilast 500 mcg tablet 500 mcg PO DAILY 02/09/24 11/02/24 ascorbic acid (vitamin C) 1,000 mg 1 g PO DAILY 05/12/24 11/02/24 tablet cyclobenzaprine 10 mg tablet 10 mg PO BID PRN 05/12/24 11/02/24 fluticasone propionate 50 2 spray intranasal DAILY 05/12/24 11/02/24 mcg/actuation nasal spray,suspension ipratropium bromide 0.02 % 0.5 mg inhalation Q6H 05/12/24 11/02/24 solution for inhalation nystatin 100,000 unit/gram topical 1 applic topical DAILY 05/12/24 11/02/24 cream Previous Rx's ?Medication ?Instructions ?Recorded amlodipine 5 mg tablet 5 mg PO DAILY #90 tabs 09/06/20 warfarin 3 mg tablet See Rx Instructions .Route 09/19/23 .COMPLEX #90 tabs bumetanide 2 mg tablet 4 mg (2 x 2 mg) PO BID #360 tabs 05/12/24 hydroxyzine pamoate 25 mg capsule 25 mg PO TID PRN Anxiety #90 caps 07/06/24 warfarin 4 mg tablet 4 mg PO Q7D #90 tabs 08/05/24 warfarin 2 mg tablet 2 mg PO DAILY #90 tabs 08/09/24 brexpiprazole 2 mg tablet See Rx Instructions .Route 11/02/24 .COMPLEX #30 tabs citalopram 20 mg tablet 20 mg PO DAILY #30 tabs 11/02/24 duloxetine 60 mg capsule,delayed See Rx Instructions .Route 11/02/24 release .COMPLEX #60 ea Allergies Allergy/AdvReac Type Severity Reaction Status Date / Time Penicillins Allergy Unknown Verified 11/04/24 21:16 Review of Systems Const: Denies: fever(s) Card: Denies: chest pain Resp: Reports: dyspnea (chronic-at baseline) GI: Denies: abdominal pain Musc: Reports: extremity pain and joint pain; Denies: neck pain, back pain, extremity swelling, joint swelling, joint redness, joint warmth, muscle cramps or muscle weakness Skin/Breast: Denies: rash Neuro: Reports: difficulty walking (chronically); Denies: numbness in extremities, weakness in extremities or sensory changes PFSH ED PFSH: Medical History Psychiatric care Dyslipidemia Morbid obesity Venous stasis Tobacco abuse, in remission HTN (hypertension) Anticoagulant long-term use GUS (obstructive sleep apnea) Oxygen dependent COPD (chronic obstructive pulmonary disease) Major depressive disorder, recurrent, severe with psychotic symptoms Surgical History H/O mechanical aortic valve replacement Family History Other CAD (coronary artery disease) Dementia Diabetes Hypertension Social History Smoking and tobacco/nicotine status: former use of tobacco/nicotine Second hand smoke exposure: No Alcohol intake: never Substance/Drug Use: never Adopted: No Caregiver/support person: No Lives independently: Yes Household members: spouse Housing: House Marital status: Marital status details: for 36 years Number of children: 2 Number of grandchildren: 0 Highest education level completed: 10th Grade Current occupational status: disabled Pets and animals: Yes Pets & animals: dog(s) Leisure activites: reading and other Leisure activities details: alona Sexually active: Yes Do you think of yourself as: Straight/Heterosexual Current gender identity: Female Abbi/Christian: Pentecostalism Special abbi needs: No Agree to transfusion: Yes Female Reproductive History: Para: 2 Physical Exam Const: COMMON NORMALS: no acute distress, patient oriented x3, alert and well nourished GENERAL APPEARANCE: cooperative NUTRITIONAL APPEARANCE: obese morbidly obese (BMI 46.0) GI: COMMON NORMALS: Normal to inspection, nondistended, normoactive bowel sounds present and Soft to palpation PALPATION: Yes Soft to palpation : COMMON NORMALS: Yes no CVA tenderness BLADDER/KIDNEY EXAM: Yes no CVA tenderness Back/Pelvis: COMMON NORMALS: no CVA tenderness and thoracic and lumbar spine normal to inspection Extremity: COMMON NORMALS: capillary refill normal and no calf tenderness GENERAL: Yes normal exam except as noted RIGHT LOWER EXTREMITY: Yes hip joint, Yes upper leg and Yes knee joint OTHER: exam is limited due to body habitus; patient complaints of pain to R hip down to R knee; limited motivation to move it; pain is made worse by passive and active ROM; bilateral LE venous stasis skin changes; she has palpable pulses throughout extremity; no coolness/pallor noted; no erythema/warmth Neuro: COMMON NORMALS: patient oriented x3, moves all extremities, no focal motor deficits and no sensory deficits noted SENSORIUM/ORIENTATION: Yes alert Course Vital Signs: Vital signs: Vital Signs Temperature 96.0 F L 11/04/24 21:14 Pulse Rate 79 11/04/24 21:14 Respiratory Rate 18 11/04/24 21:14 Blood Pressure 117/65 11/04/24 21:14 Pulse Oximetry 95 11/04/24 21:14 Oxygen Delivery Me thod Nasal Cannula 11/04/24 21:14 Oxygen Flow Rate 4 11/04/24 21:14 MDM - Extremity (Nontraumatic) Medical Decision Making XRs unremarkable. Hip hardware appears intact. She has had no recent trauma. She has palpable pulses. No back pain. History/physical exam do not seem consistent with DVT. She does take Warfarin and had INR checked on Friday and this was theraputic. He denies any concern for any other life-threatening or emergent etiologies. She does have an appointment scheduled with primary care next week. Discussed conservative therapies until that appointment. Return precautions discussed. Medical Records I reviewed the patient's medical records. XR interpretation done by ED provider, pending radiology final review Discharge Plan Discharge Patient Disposition: Home Clinical Impression: Acute pain of right thigh Condition: Stable Prescriptions: No Action atorvastatin 20 mg tablet 20 mg PO DAILY aspirin [Adult Low Dose Aspirin] 81 mg tablet,delayed release (DR/EC) 81 mg PO DAILY gabapentin 300 mg capsule 300 mg PO TID albuterol sulfate [ProAir HFA] 90 mcg/actuation HFA aerosol inhaler 2 puff INHALATION Q6H PRN (Reason: shortness of breath ) amlodipine 5 mg tablet 5 mg PO DAILY Qty: 90 3RF ferrous sulfate [Tommy-Time] 325 mg (65 mg iron) tablet 325 mg PO DAILY levothyroxine 112 mcg capsule 112 mcg PO DAILY ascorbic acid (vitamin C) 1,000 mg tablet 1 g PO DAILY cyclobenzaprine 10 mg tablet 10 mg PO BID PRN fluticasone propionate 50 mcg/actuation spray,suspension 2 spray intranasal DAILY Rx Instructions: administer into each nostril ipratropium bromide 0.02 % solution 0.5 mg inhalation Q6H nystatin 100,000 unit/gram cream 1 applic topical DAILY bumetanide 2 mg tablet 4 mg PO BID Qty: 360 3RF hydroxyzine pamoate 25 mg capsule 25 mg PO TID PRN (Reason: Anxiety) Qty: 90 5RF brexpiprazole 2 mg tablet See Rx Instructions .ROUTE .COMPLEX Qty: 30 5RF Dose Instruction: Take 1 tablet by mouth once daily Rx Instructions: Take 1 tablet by mouth once daily duloxetine 60 mg capsule,delayed release(DR/EC) See Rx Instructions .ROUTE .COMPLEX Qty: 60 5RF Dose Instruction: Take 1 capsule by mouth twice daily Rx Instructions: Take 1 capsule by mouth twice daily citalopram 20 mg tablet 20 mg PO DAILY Qty: 30 3RF (DME) oxygen-air delivery systems Device See Rx Instructions .Route Rx Instructions: As directed potassium chloride [Klor-Con M20] 20 mEq tablet,ER particles/crystals 20 meq PO DAILY warfarin 3 mg tablet See Rx Instructions .ROUTE .COMPLEX Qty: 90 3RF Protocol: Dose Management Condition: Friday Dose/Route: 3 mg Instruction: 1 x 3 mg tablet Condition: Friday Dose/Route: 4 mg Instruction: 1 x 4 mg tablet Condition: Friday Dose/Route: 3 mg Instruction: 1 x 3 mg tablet Condition: Friday Dose/Route: 4 mg Instruction: 1 x 4 mg tablet Condition: Dose/Route: 3 mg Instruction: 1 x 3 mg tablet Condition: Friday Dose/Route: 4 mg Instruction: 1 x 4 mg tablet Condition: Friday Dose/Route: 3 mg Instruction: 1 x 3 mg tablet Protocol Text: Adjustment Start Date: Friday11/01/24 INR Value: 3.6 INR Date: 11/01/24 Recheck Date: 11/08/24 Dose Instruction: TAKE 1 TABLET BY MOUTH EVERY DAY Rx Instructions: TAKE 1 TABLET BY MOUTH EVERY DAY warfarin 4 mg tablet 4 mg PO Q7D Qty: 90 0RF Protocol: Dose Management Condition: Friday Dose/Route: 3 mg Instruction: 1 x 3 mg tablet Condition: Friday Dose/Route: 4 mg Instruction: 1 x 4 mg tablet Condition: Friday Dose/Route: 3 mg Instruction: 1 x 3 mg tablet Condition: Friday Dose/Route: 4 mg Instruction: 1 x 4 mg tablet Condition: Dose/Route: 3 mg Instruction: 1 x 3 mg tablet Condition: Friday Dose/Route: 4 mg Instruction: 1 x 4 mg tablet Condition: Friday Dose/Route: 3 mg Instruction: 1 x 3 mg tablet Protocol Text: Adjustment Start Date: Friday11/01/24 INR Value: 3.6 INR Date: 11/01/24 Recheck Date: 11/08/24 Rx Instructions: FRIDAY warfarin 2 mg tablet 2 mg PO DAILY Qty: 90 3RF Protocol: Dose Management Condition: Friday Dose/Route: 3 mg Instruction: 1 x 3 mg tablet Condition: Friday Dose/Route: 4 mg Instruction: 1 x 4 mg tablet Condition: Friday Dose/Route: 3 mg Instruction: 1 x 3 mg tablet Condition: Friday Dose/Route: 4 mg Instruction: 1 x 4 mg tablet Condition: Dose/Route: 3 mg Instruction: 1 x 3 mg tablet Condition: Friday Dose/Route: 4 mg Instruction: 1 x 4 mg tablet Condition: Friday Dose/Route: 3 mg Instruction: 1 x 3 mg tablet Protocol Text: Adjustment Start Date: Friday11/01/24 INR Value: 3.6 INR Date: 11/01/24 Recheck Date: 11/08/24 prednisone 10 mg tablet 10 mg PO DAILY benzonatate 100 mg capsule 100 mg PO TID PRN (Reason: Cough) roflumilast 500 mcg tablet 500 mcg PO DAILY Discharge Orders: Discharge ED (Routine); Ordered 11/04/24 Ordered By: Jayla Tinsley Referrals: Mita Carvajal FNP [Referring] - Activity Restrictions/Additional Instructions: As we discussed, your x-rays are unremarkable. We discussed treating symptoms conservatively and following up with primary care next week as you already have a scheduled appointment. You may return to the emergency department at anytime for worsening pain, redness, warmth, swelling, or any other concerns you may have. Print Language: Divehi Coding Level of Care Code ED [employer] Customer Service for Rhett Coker
--- NOTE | 2024-11-04 21:40 | XRR_ITS ---
PROCEDURE INFORMATION: Exam: XR Right Hip Exam date and time: 11/04/2024 9:44 PM Age: 64 years old Clinical indication: Hip pain; Right hip; Prior surgery; Surgery date: 6+ months; Surgery type: Hip replacement; Additional info: Right hip pain TECHNIQUE: Imaging protocol: Radiologic exam of the right hip. Views: 1 view hip with pelvis when performed. COMPARISON: No relevant prior studies available. FINDINGS: Bones/joints: Periprosthetic fracture involving the proximal aspect of the femoral stem of the total hip arthroplasty. Osteolysis and heterotopic bone formation of the superior most aspect of the femoral stem. Femoroacetabular component appears intact. Soft tissues: Unremarkable. XR/XR hip RT 2-3V wo/w pel* [id number] IMPRESSION: As above.
--- NOTE | 2024-11-04 21:40 | XRR_ITS ---
PROCEDURE INFORMATION: Exam: XR Right Knee Exam date and time: 11/04/2024 9:44 PM Age: 64 years old Clinical indication: Pain; Knee; Right; Additional info: Pain, get to mid femur TECHNIQUE: Imaging protocol: Radiologic exam of the right knee. Views: 3 views. COMPARISON: [place] [id number] 02/09/2024 10:29 AM FINDINGS: Tubes, catheters and devices: There are 2 cannulated screws through the distal femoral diaphysis. Bones/joints: No definite acute fracture or traumatic malalignment. Soft tissues: Normal. XR/XR knee RT 3V* [id number] IMPRESSION: As above.
[2024-11-04 22:51] VITALS: BP 117/46; PULSE 73; O2SAT 97
--- NOTE | 2024-11-05 07:28 | DCPLANNER ---
faxed packet to marisol peng
== END 2024-11-04 22:53 | disposition home or self-care (01) ==
PROVIDERS: Emergency Provider Physician Assistant; PCP Family Medicine
DX: M97.01XA Periprosthetic fracture around internal prosthetic right hip joint, initial encounter (principal); M79.651 Pain in right thigh; Z79.82 Long term (current) use of aspirin; Z79.01 Long term (current) use of anticoagulants; Z87.891 Personal history of nicotine dependence; J44.9 Chronic obstructive pulmonary disease, unspecified; I10 Essential (primary) hypertension; E78.5 Hyperlipidemia, unspecified; X58.XXXA Exposure to other specified factors, initial encounter
CPT/HCPCS: 73502; 73562; 99284

== ENCOUNTER → 2024-12-13 14:25 | Outpatient (BNVA) | payer MEDICARE, MEDICAID, SELFPAY ==
[2022-11-21 10:41] VITALS: BP 143/71; BMI 56.5
== END ==
PROVIDERS: PCP Family Medicine; Visit Provider Internal Medicine
DX: I10 Essential (primary) hypertension (principal); J44.9 Chronic obstructive pulmonary disease, unspecified; E66.01 Morbid (severe) obesity due to excess calories; Z68.42 Body mass index [BMI] 45.0-49.9, adult; E78.5 Hyperlipidemia, unspecified; Z79.01 Long term (current) use of anticoagulants; Z79.82 Long term (current) use of aspirin; Z95.2 Presence of prosthetic heart valve; Z87.891 Personal history of nicotine dependence
CPT/HCPCS: 99214